=== PATIENT | female | born 1940 | race Caucasian/White ===

== ENCOUNTER → 2016-08-12 | Outpatient (CLI) | payer MEDICARE, BC ==
--- NOTE | 2016-08-12 20:03 | WOUNDPNF ---
DATE 08/12/2016 CHIEF COMPLAINT Followup for osteomyelitis of the right lateral malleolus. HISTORY OF PRESENT ILLNESS Ms. 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 It was thought to be down to the bone in the spring. She has a history of polio and Charcot foot osteoneuropathy. She was initially treated with Bactrim which caused a rash. She had a wound culture November 26 that grew gram-positive cocci on the Gram stain and the culture grew heavy growth of a methicillin-resistant Staph aureus, moderate growth of Strep mitis and Prevotella bivia. The MRSA was susceptible to vancomycin, Bactrim, tigecycline, tetracycline, linezolid, gentamicin and doxycycline and resistant to clindamycin. I initially discussed IV antibiotics with her. However, she wanted to try oral antibiotics. She was given doxycycline 100 mg b.i.d. for one month from December 31. She underwent vascular intervention by Dr. Hua to improve blood flow in the right lower extremity in March. Following that the wound gradually increased in size. She had an MRI June 01 which showed a soft tissue defect along the lateral aspect of the ankle joint adjacent to the lateral malleolus which had mildly increased marrow signal suspicious for osteomyelitis. She agreed to do IV antibiotics and was started on daptomycin 600 mg IV daily on June 25. She has also been undergoing hyperbaric oxygen treatments. She continues to follow with Dr. Fontaine who has been doing some superficial debridement to her wound. Last week on August 05 she finished six weeks of IV antibiotics so her PICC line and daptomycin were discontinued. She was given minocycline 100 mg b.i.d. Today she reports that she is doing well although she asks about whether or not she can take her calcium with the minocycline. PAST MEDICAL HISTORY, PAST SURGICAL HISTORY Reviewed. ALLERGIES Bactrim caused a rash. Penicillin causes hives. Doxycycline causes mild GI upset but she tolerates minocycline. Vancomycin caused leukopenia. Contrast dye is listed as an allergy. SOCIAL HISTORY, FAMILY HISTORY, CURRENT MEDICATIONS Reviewed. REVIEW OF SYSTEMS She denies any recent fevers, chills, sweats, nausea, vomiting or diarrhea. She denies much in the way of pain. PHYSICAL EXAM GENERAL: She appears comfortable and is in no acute distress. She was seen in the HBO chamber and her wound was evaluated at the end of her HBO therapy. HEENT: Pupils appear to be equal, round, reactive to light. Extraocular movements are intact. NECK: Supple. HEART: Regular rate and rhythm. No murmurs noted. LUNGS: Clear to auscultation bilaterally. EXTREMITIES: She is status post left below-knee amputation. She continues to have a wound on the right lateral malleolus which measures slightly larger than 1 cm in diameter. This appears to be clean. She still has a mild amount of erythema surrounding this but it is very, very mild. NEUROLOGIC: Exam is grossly nonfocal. She is alert and oriented x 3. PSYCHIATRIC: Mood and affect are appropriate. SKIN: No rashes. LABORATORY Her most recent labs are from August 03 when her CRP was 5.7. CK was 96. Sed rate was 44. IMPRESSION 1. Pressure ulcer right ankle stage IV/osteomyelitis status post debridement, wound cultures with predominantly methicillin-resistant Staph aureus as well as Strep mitis and Prevotella bivia. MRI June 01 with increased signal suspicious for osteomyelitis of the right lateral malleolus, status post daptomycin therapy for six weeks completed August 05, 2016. 2. Charcot foot deformity of the right foot. 3. Diabetes mellitus type 2 on insulin. 4. Peripheral arterial disease status post intervention and revascularization procedure to the right lower extremity March 2016. 5. Atrial fibrillation on Coumadin. 6. 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 7. Osteopenia. 8. Hypertension. 9. Hyperlipidemia. 10. History of polio. 11. Allergies to Bactrim and penicillin and history of leukopenia with vancomycin. RECOMMENDATIONS I would recommend continuing with the minocycline 100 mg p.o. b.i.d. indefinitely for now. I discussed with her that she needs to take her minocycline one hour before or two hours after antacids and calcium supplements. I also told her that she can resume her statin which was stopped while she was on daptomycin therapy. I will have her follow up with me in about four weeks. JUDI
== END ==
LOC: NWCC 07:45
PROVIDERS: ATTEND Internal Medicine Infectious Disease
DX: M86.671 Other chronic osteomyelitis, right ankle and foot (principal); E11.51 Type 2 diabetes mellitus with diabetic peripheral angiopathy without gangrene; E11.65 Type 2 diabetes mellitus with hyperglycemia
CPT/HCPCS: 82948; G0277; 99183

== ENCOUNTER → 2016-08-13 | Outpatient (CLI) | payer MEDICARE, BC | LOC: NWCC 07:46 | PROVIDERS: ATTEND Internal Medicine | DX: M86.671 Other chronic osteomyelitis, right ankle and foot (principal); E11.51 Type 2 diabetes mellitus with diabetic peripheral angiopathy without gangrene; E11.65 Type 2 diabetes mellitus with hyperglycemia | CPT/HCPCS: 82948; G0277; 99183 ==

== ENCOUNTER → 2016-08-14 | Outpatient (CLI) | payer MEDICARE, BC | LOC: NWCC 07:46 | PROVIDERS: ATTEND Orthopaedic Surgery | DX: M86.671 Other chronic osteomyelitis, right ankle and foot (principal); E11.51 Type 2 diabetes mellitus with diabetic peripheral angiopathy without gangrene; E11.65 Type 2 diabetes mellitus with hyperglycemia | CPT/HCPCS: 82948; G0277; 99183 ==

== ENCOUNTER → 2016-08-17 | Outpatient (CLI) | payer MEDICARE, BC | LOC: NWCC 07:48 | PROVIDERS: ATTEND Internal Medicine | DX: M86.671 Other chronic osteomyelitis, right ankle and foot (principal); E11.51 Type 2 diabetes mellitus with diabetic peripheral angiopathy without gangrene; E11.65 Type 2 diabetes mellitus with hyperglycemia | CPT/HCPCS: 82948; G0277; 99183 ==

== ENCOUNTER → 2016-08-18 | Outpatient (CLI) | payer MEDICARE, BC | LOC: NWCC 07:57 | PROVIDERS: ATTEND Internal Medicine | DX: L89.514 Pressure ulcer of right ankle, stage 4 (principal); E11.69 Type 2 diabetes mellitus with other specified complication; E16.2 Hypoglycemia, unspecified; M86.671 Other chronic osteomyelitis, right ankle and foot | CPT/HCPCS: 11042; 82948 ==

== ENCOUNTER → 2016-08-19 | Outpatient (CLI) | payer MEDICARE, BC | LOC: NWCC 07:46 | PROVIDERS: ATTEND Internal Medicine | DX: M86.671 Other chronic osteomyelitis, right ankle and foot (principal); E11.51 Type 2 diabetes mellitus with diabetic peripheral angiopathy without gangrene; E11.65 Type 2 diabetes mellitus with hyperglycemia | CPT/HCPCS: 82948; G0277; 99183 ==

== ENCOUNTER → 2016-08-20 | Outpatient (CLI) | payer MEDICARE, BC | LOC: NWCC 07:44 | PROVIDERS: ATTEND Internal Medicine | DX: M86.671 Other chronic osteomyelitis, right ankle and foot (principal); E11.51 Type 2 diabetes mellitus with diabetic peripheral angiopathy without gangrene; E11.65 Type 2 diabetes mellitus with hyperglycemia | CPT/HCPCS: 82948; G0277; 99183 ==

== ENCOUNTER → 2016-08-21 | Outpatient (CLI) | payer MEDICARE, BC | LOC: NWCC 07:47 | PROVIDERS: ATTEND Internal Medicine | DX: M86.671 Other chronic osteomyelitis, right ankle and foot (principal); E11.51 Type 2 diabetes mellitus with diabetic peripheral angiopathy without gangrene; E11.65 Type 2 diabetes mellitus with hyperglycemia | CPT/HCPCS: 82948; G0277; 99183 ==

== ENCOUNTER → 2016-08-24 | Outpatient (CLI) | payer MEDICARE, BC | LOC: NWCC 07:50 | PROVIDERS: ATTEND Internal Medicine | DX: M86.671 Other chronic osteomyelitis, right ankle and foot (principal); E11.51 Type 2 diabetes mellitus with diabetic peripheral angiopathy without gangrene; E11.65 Type 2 diabetes mellitus with hyperglycemia | CPT/HCPCS: 82948; G0277; 99183 ==

== ENCOUNTER → 2016-08-25 | Outpatient (CLI) | payer MEDICARE, BC | LOC: NWCC 07:46 | PROVIDERS: ATTEND Surgery | DX: M86.671 Other chronic osteomyelitis, right ankle and foot (principal); E11.51 Type 2 diabetes mellitus with diabetic peripheral angiopathy without gangrene; E11.65 Type 2 diabetes mellitus with hyperglycemia; L89.514 Pressure ulcer of right ankle, stage 4; Z86.14 Personal history of Methicillin resistant Staphylococcus aureus infection | CPT/HCPCS: 82948; G0277; G0463; 99183 ==

== ENCOUNTER → 2016-08-26 | Outpatient (CLI) | payer MEDICARE, BC | LOC: NWCC 07:52 | PROVIDERS: ATTEND Internal Medicine | DX: M86.671 Other chronic osteomyelitis, right ankle and foot (principal); E11.51 Type 2 diabetes mellitus with diabetic peripheral angiopathy without gangrene; E11.65 Type 2 diabetes mellitus with hyperglycemia | CPT/HCPCS: 82948; G0277; 99183 ==

== ENCOUNTER → 2016-08-27 | Outpatient (CLI) | payer MEDICARE, BC | LOC: NWCC 08:00 | PROVIDERS: ATTEND Internal Medicine | DX: M86.671 Other chronic osteomyelitis, right ankle and foot (principal); E11.51 Type 2 diabetes mellitus with diabetic peripheral angiopathy without gangrene; E11.65 Type 2 diabetes mellitus with hyperglycemia | CPT/HCPCS: 99183 ==

== ENCOUNTER → 2016-08-31 | Outpatient (CLI) | payer MEDICARE, BC | LOC: NWCC 07:47 | PROVIDERS: ATTEND Internal Medicine | DX: M86.671 Other chronic osteomyelitis, right ankle and foot (principal); E11.51 Type 2 diabetes mellitus with diabetic peripheral angiopathy without gangrene; E11.65 Type 2 diabetes mellitus with hyperglycemia | CPT/HCPCS: 99183 ==

== ENCOUNTER → 2016-09-01 | Outpatient (CLI) | payer MEDICARE, BC | LOC: NWCC 07:50 | PROVIDERS: ATTEND Surgery Plastic and Reconstructive Surgery | DX: M86.671 Other chronic osteomyelitis, right ankle and foot (principal); E11.51 Type 2 diabetes mellitus with diabetic peripheral angiopathy without gangrene; E11.65 Type 2 diabetes mellitus with hyperglycemia | CPT/HCPCS: 99183 ==

== ENCOUNTER → 2016-09-03 | Outpatient (CLI) | payer MEDICARE, BC | LOC: NWCC 07:46 | PROVIDERS: ATTEND Internal Medicine | DX: M86.671 Other chronic osteomyelitis, right ankle and foot (principal); E11.51 Type 2 diabetes mellitus with diabetic peripheral angiopathy without gangrene; E11.65 Type 2 diabetes mellitus with hyperglycemia | CPT/HCPCS: 99183 ==

== ENCOUNTER → 2016-09-04 | Outpatient (CLI) | payer MEDICARE, BC ==
[~2016-09-04] MED LIST: SALINE FLUSH 10ml SYRINGE IVF ONE
== END ==
LOC: NWCC 07:46
PROVIDERS: ATTEND Internal Medicine
DX: M86.671 Other chronic osteomyelitis, right ankle and foot (principal); E11.51 Type 2 diabetes mellitus with diabetic peripheral angiopathy without gangrene; E11.65 Type 2 diabetes mellitus with hyperglycemia; L89.514 Pressure ulcer of right ankle, stage 4; Z86.14 Personal history of Methicillin resistant Staphylococcus aureus infection
CPT/HCPCS: 11042; 82948; G0277; 99183

== ENCOUNTER → 2016-09-07 | Outpatient (CLI) | payer MEDICARE, BC | LOC: NWCC 07:47 | PROVIDERS: ATTEND Internal Medicine | DX: M86.671 Other chronic osteomyelitis, right ankle and foot (principal); E11.51 Type 2 diabetes mellitus with diabetic peripheral angiopathy without gangrene; E11.65 Type 2 diabetes mellitus with hyperglycemia | CPT/HCPCS: 82948; G0277; 99183 ==

== ENCOUNTER → 2016-09-08 | Outpatient (CLI) | payer MEDICARE, BC | LOC: NWCC 07:50 | PROVIDERS: ATTEND Surgery | DX: M86.671 Other chronic osteomyelitis, right ankle and foot (principal); E11.51 Type 2 diabetes mellitus with diabetic peripheral angiopathy without gangrene; E11.65 Type 2 diabetes mellitus with hyperglycemia; L89.514 Pressure ulcer of right ankle, stage 4; Z86.14 Personal history of Methicillin resistant Staphylococcus aureus infection | CPT/HCPCS: 11042; 82948; G0277; 99183 ==

== ENCOUNTER → 2016-09-09 | Outpatient (CLI) | payer MEDICARE, BC ==
--- NOTE | 2016-09-09 17:21 | WOUNDPNF ---
DATE September 09, 2016 CHIEF COMPLAINT Followup for osteomyelitis of the right lateral malleolus. HISTORY OF PRESENT ILLNESS Ms. 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 It was thought to be down to bone in the spring. She was initially treated with Bactrim which caused a rash. She had a wound culture November 26 that grew gram-positive cocci on the Gram stain and the culture grew heavy growth of methicillin-resistant Staph aureus, moderate growth of Strep mitis and Prevotella bivia. The MRSA was susceptible to vancomycin, Bactrim, tigecycline, tetracycline, linezolid, gentamicin, doxycycline and resistant to clindamycin. I initially discussed IV antibiotics with her. However, she wanted to try oral antibiotics. She was treated with doxycycline 100 mg b.i.d. for one month starting December 31. She underwent vascular intervention by Dr. Hua to improve blood flow in the right lower extremity in March. Following that the wound gradually increased in size. She had an MRI June 01 which showed a soft tissue defect along the lateral aspect of the ankle joint adjacent to the lateral malleolus which had mildly increased marrow signal suspicious for osteomyelitis. She agreed to do IV antibiotics and was started on daptomycin 600 mg IV daily on June 25. She completed a six-week course of that on August 05 and was started back on minocycline 100 mg b.i.d. She has also been undergoing hyperbaric oxygen treatments and she is nearing the end of that. She still has a wound and had some superficial debridement done yesterday by Dr. Fontaine. Today she denies any problems in particular. PAST MEDICAL HISTORY/PAST SURGICAL HISTORY Reviewed. ALLERGIES Bactrim caused a rash. Penicillin causes hives. Doxycycline causes mild GI upset but she tolerates minocycline. Vancomycin caused leukopenia. Contrast dye is listed as an allergy. SOCIAL HISTORY/MEDICATIONS/FAMILY HISTORY Reviewed. REVIEW OF SYSTEMS She denies any fevers, chills, sweats, nausea, vomiting or diarrhea. She denies any significant pain. PHYSICAL EXAM Physical exam was limited as she was seen when she was in the hyperbaric oxygen chamber. GENERAL: She appears to be comfortable and in no acute distress. HEENT: Normocephalic, atraumatic. Pupils appear to be equal, round and reactive. Extraocular movements are intact. NEUROLOGIC: Exam appears to be grossly nonfocal. She is alert and oriented x 3. SKIN: No rashes. PSYCHIATRIC: Mood and affect are appropriate. IMPRESSION 1. Pressure ulcer right ankle, stage IV/osteomyelitis status post debridement, wound cultures with predominantly methicillin-resistant Staph aureus as well as Strep mitis and Prevotella bivia. MRI June 01 with increased signal suspicious for osteomyelitis of the right lateral malleolus, status post daptomycin therapy for six weeks completed August 05, 2016. 2. Charcot foot deformity of the right foot. 3. Diabetes mellitus type 2 on insulin. 4. Peripheral arterial disease status post intervention and revascularization procedure to the right lower extremity March 2016. 5. Atrial fibrillation on Coumadin. 6. 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 7. Osteopenia. 8. Hypertension. 9. Hyperlipidemia. 10. History of polio. 11. Allergies to Bactrim and penicillin and history of leukopenia with vancomycin. RECOMMENDATIONS I will continue her on minocycline 100 mg p.o. b.i.d. for another month. I will plan to see her back in followup in a few weeks. Thank you for allowing me to participate in the care of this patient. JUDI
== END ==
LOC: NWCC 07:52
PROVIDERS: ATTEND Internal Medicine Infectious Disease
DX: M86.671 Other chronic osteomyelitis, right ankle and foot (principal); E11.51 Type 2 diabetes mellitus with diabetic peripheral angiopathy without gangrene; E11.65 Type 2 diabetes mellitus with hyperglycemia; L89.514 Pressure ulcer of right ankle, stage 4; E11.8 Type 2 diabetes mellitus with unspecified complications; Z79.4 Long term (current) use of insulin; I48.91 Unspecified atrial fibrillation; Z79.01 Long term (current) use of anticoagulants; Z86.14 Personal history of Methicillin resistant Staphylococcus aureus infection; M85.80 Other specified disorders of bone density and structure, unspecified site; I10 Essential (primary) hypertension; E78.5 Hyperlipidemia, unspecified; Z87.898 Personal history of other specified conditions; I73.9 Peripheral vascular disease, unspecified
CPT/HCPCS: 82948; G0277; G0463; 99183

== ENCOUNTER → 2016-09-10 | Outpatient (CLI) | payer MEDICARE, BC | LOC: NWCC 07:51 | PROVIDERS: ATTEND Internal Medicine | DX: M86.671 Other chronic osteomyelitis, right ankle and foot (principal); E11.51 Type 2 diabetes mellitus with diabetic peripheral angiopathy without gangrene; E11.65 Type 2 diabetes mellitus with hyperglycemia | CPT/HCPCS: 82948; G0277; 99183 ==

== ENCOUNTER → 2016-09-15 | Outpatient (CLI) | payer MEDICARE, BC | LOC: NWCC 10:07 | PROVIDERS: ATTEND Surgery | DX: L89.514 Pressure ulcer of right ankle, stage 4 (principal); Y79.1 Therapeutic (nonsurgical) and rehabilitative orthopedic devices associated with adverse incidents; M86.671 Other chronic osteomyelitis, right ankle and foot; Z86.14 Personal history of Methicillin resistant Staphylococcus aureus infection; E11.8 Type 2 diabetes mellitus with unspecified complications ==

== ENCOUNTER → 2016-09-18 | Outpatient (CLI) | payer MEDICARE, BC ==
[~2016-09-18] MED LIST changes: +GADOBUTROL 10mMol/10ml INJECTION IV ONE; -SALINE FLUSH 10ml SYRINGE IVF ONE; +SALINE FLUSH 10ml SYRINGE ONE
[2016-09-18 08:28] LABS: BASOPHILS # (AUTO) 0.1 T/MM3 (0-0.2); BASOPHILS % (AUTO) 0.6 % (0-2); EOSINOPHILS # (AUTO) 0.3 T/MM3 (0-0.5); HCT - HEMATOCRIT 39.3 % (36-46); IMMATURE GRANULOCYTE # (AUTO) 0.01 T/MM3 (0.00-0.03); IMMATURE GRANULOCYTE % (AUTO) 0.1 % (0.0-0.5); LYMPHOCYTES # (AUTO) 2.5 T/MM3 (1-4.8); LYMPHOCYTES % (AUTO) 32.7 % (23-45); MEAN CORPUSCULAR HGB 30.5 UUG (26-34); MEAN CORPUSCULAR HGB CONC(MCHC 33.1 GM/DL (31-37); MEAN CORPUSCULAR VOLUME 92.3 UM3 (80-100); MEAN PLATELET VOLUME 9.7 UM3 (9.4-12.4); MONOCYTES # (AUTO) 0.7 T/MM3 (0-0.8); MONOCYTES % (AUTO) 8.8 % (0-9.0); NEUTROPHILS #(AUTO)-ABSOLUTE 4.1 T/MM3 (1.8-7.7); NEUTROPHILS % (AUTO) 53.8 % (33-66); RED BLOOD COUNT 4.26 M/MM3 (4.00-5.20); WBC - WHITE BLOOD COUNT 7.7 T/MM3 (4.5-11.0)
[2016-09-18 08:39] LABS: ALBUMIN 3.5 G/DL (3.5-5.0); ALBUMIN/GLOBULIN RATIO 1.1 RATIO (1.1-2.2); ALKALINE PHOSPHATASE 48 U/L (38-126); ALT (SGPT) 39 U/L (9-52); ANION GAP 13 MEQ/L (5-15); AST (SGOT) 31 U/L (14-36); BUN/CREATININE RATIO 22 RATIO (6-26); C-REACTIVE PROTEIN < 5.0 MG/L (0-9); CALCIUM 10.1 MG/DL (8.4-10.2); CHLORIDE 102 MEQ/L (98-107); CO2 - CARBON DIOXIDE 24 MEQ/L (22-30); GLOMERULAR FILTRATION RATE 54; GLUCOSE 151 MG/DL (65-110); POTASSIUM 4.8 MEQ/L (3.6-5); SODIUM 139 MEQ/L (134-144); TOTAL PROTEIN 6.6 G/DL (6.3-8.2)
--- NOTE | 2016-09-18 10:57 | DI ---
Indication: ITS.REASON: OSTEOMYELITIS M86.671 PROCEDURE: MRI ANKLE RIGHT W/WO CONTRAST: Encounter: Subsequent Comparison: Right ankle MRI dated June 01, 2016 Technique: Multiplanar multisequence MR imaging of the right ankle was performed with and without contrast. Contrast: 9.5 mL Gadavist Findings: Again there is significant induration and soft tissue swelling around the medial, lateral and posterior aspects of the ankle joint. The flexor and extensor tendons are unchanged in appearance. Achilles tendon appears chronically partially torn. Chronic partial tearing of the peroneus longus and brevis tendons. Anterior talofibular ligament is chronically torn. No acute fracture. Significant degenerative change in the midfoot. At the area of ulcerated wound indicated with a marker the prior area of edema within the posterior aspect of the distal fibula has also completely resolved. No new areas of bone marrow signal abnormality appreciated. No focal abnormal bone marrow enhancement identified although the lack of fat saturation somewhat limits the exam. No fluid collection or abscess seen. Impression: The prior osteomyelitis of the distal fibula appears to have resolved. .
== END ==
LOC: IMA 08:09
PROVIDERS: ATTEND Surgery
DX: M79.9 Soft tissue disorder, unspecified (principal); M86.671 Other chronic osteomyelitis, right ankle and foot
CPT/HCPCS: 36415; 73723; 80053; 85025; 85652; 86140; A9585

== ENCOUNTER → 2016-09-22 | Outpatient (CLI) | payer MEDICARE, BC ==
[~2016-09-22] MED LIST changes: -GADOBUTROL 10mMol/10ml INJECTION IV ONE; +SALINE FLUSH 10ml SYRINGE IVF ONE; -SALINE FLUSH 10ml SYRINGE ONE
== END ==
LOC: NWCC 08:23
PROVIDERS: ATTEND Surgery
DX: L89.514 Pressure ulcer of right ankle, stage 4 (principal); Y79.1 Therapeutic (nonsurgical) and rehabilitative orthopedic devices associated with adverse incidents; B96.89 Other specified bacterial agents as the cause of diseases classified elsewhere; Z86.14 Personal history of Methicillin resistant Staphylococcus aureus infection; G62.9 Polyneuropathy, unspecified
CPT/HCPCS: 15002; 15271; 20240; 29445; 87070; 87075; 87147; 87205; 88307; A6207; Q4172

== ENCOUNTER → 2016-09-25 | Outpatient (CLI) | payer MEDICARE, BC | LOC: NWCC 08:19 | PROVIDERS: ATTEND Surgery | DX: L89.514 Pressure ulcer of right ankle, stage 4 (principal); Y79.1 Therapeutic (nonsurgical) and rehabilitative orthopedic devices associated with adverse incidents; E11.69 Type 2 diabetes mellitus with other specified complication; M86.671 Other chronic osteomyelitis, right ankle and foot; Z86.14 Personal history of Methicillin resistant Staphylococcus aureus infection | CPT/HCPCS: 29445 ==

== ENCOUNTER → 2016-09-29 | Outpatient (CLI) | payer MEDICARE, BC | LOC: NWCC 08:18 | PROVIDERS: ATTEND Surgery | DX: L89.514 Pressure ulcer of right ankle, stage 4 (principal); Y79.1 Therapeutic (nonsurgical) and rehabilitative orthopedic devices associated with adverse incidents; M86.671 Other chronic osteomyelitis, right ankle and foot; Z86.14 Personal history of Methicillin resistant Staphylococcus aureus infection | CPT/HCPCS: 15002; 15271; 29445; A6207; A6237; Q4172 ==

== ENCOUNTER → 2016-10-06 | Outpatient (CLI) | payer MEDICARE, BC | LOC: NWCC 08:16 | PROVIDERS: ATTEND Surgery | DX: L89.514 Pressure ulcer of right ankle, stage 4 (principal); Y79.1 Therapeutic (nonsurgical) and rehabilitative orthopedic devices associated with adverse incidents; E11.69 Type 2 diabetes mellitus with other specified complication; Z86.14 Personal history of Methicillin resistant Staphylococcus aureus infection | CPT/HCPCS: 29445; A6021; A6209; A6237 ==

== ENCOUNTER → 2016-10-07 | Outpatient (CLI) | payer MEDICARE, BC ==
--- NOTE | 2016-10-07 16:35 | WOUNDPNF ---
DATE October 07, 2016 CHIEF COMPLAINT Followup for osteomyelitis of the right lateral malleolus. HISTORY OF PRESENT ILLNESS Ms. 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 It was thought to be down to bone in the spring. She was initially treated with Bactrim which caused a rash. She had a wound culture November 26 that grew heavy growth of methicillin-resistant staph aureus, moderate growth of strep mitis and Prevotella bivia. I discussed IV antibiotics with her, however, initially she wanted to try oral antibiotics. She was treated with doxycycline 100 mg b.i.d. for one month starting December 31. She underwent vascular intervention by Dr. Hua to improve blood flow in the right lower extremity in March. Following that, the wound gradually increased in size. She had an MRI June 01 which showed a soft tissue defect along the lateral aspect of the ankle joint adjacent to the lateral malleolus which had mildly increased marrow signal suspicious for osteomyelitis. She agreed to do IV antibiotics and was started on daptomycin 600 mg IV daily on June 25. She completed a six-week course on August 05 and was started back on minocycline 100 mg b.i.d. She also underwent hyperbaric oxygen treatments and recently completed those. She still has a wound present and recently Dr. Fontaine has been doing some superficial debridements of her wound. I last saw her September 09 and continued her on the minocycline. Recently Dr. Fontaine has decided to put her in a cast thinking that there has been some motion contributing to the fact that this wound is not healing. She had a repeat MRI done September 18 which showed that the osteomyelitis in the fibula had resolved. On September 22 she had a wound culture obtained by Dr. Fontaine which had a negative gram stain and grew a little bit of coagulase-negative staph only. The susceptibility was not done. Dr. Fontaine did a biopsy or as the patient describes it he removed a piece of tissue from her wound and sent this off to pathology. The report said that there were fragments of bone, cartilage, and soft tissue obtained. The bone showed features suggestive of resolving osteomyelitis. Her wound has significantly decreased in size recently. PAST MEDICAL HISTORY AND PAST SURGICAL HISTORY Were reviewed. ALLERGIES BACTRIM caused a rash. PENICILLIN causes hives. DOXYCYCLINE causes mild GI upset but she tolerates minocycline. VANCOMYCIN caused leukopenia. CONTRAST DYE is listed as an ALLERGY. SOCIAL HISTORY, MEDICATIONS AND FAMILY HISTORY Were reviewed. REVIEW OF SYSTEMS She denies any recent fevers, chills, sweats, nausea, vomiting or diarrhea. She denies any significant pain. Actually she does report some intermittent diarrhea but it is not persistent. PHYSICAL EXAMINATION VITALS: Temperature 97. Blood pressure 127/72. Pulse 76. Respirations 20. GENERAL: She appears comfortable and is in no acute distress. HEENT: Pupils equal, round, reactive to light. Extraocular movements intact. Oropharynx is clear. Dentition is fair. HEART: Regular rate and rhythm. No murmurs noted. LUNGS: Clear to auscultation bilaterally anteriorly. ABDOMEN: Soft and nontender. She has bowel sounds present. No guarding or rebound. EXTREMITIES: Her right lower extremity is in a cast. She is status post left below-knee amputation. SKIN: No rashes. NEURO: Exam is grossly nonfocal. She is alert, oriented x3. PSYCH: Her mood and affect are appropriate. IMPRESSION 1. Pressure ulcer right ankle, stage IV/osteomyelitis status post debridement, wound cultures with predominantly methicillin-resistant staph aureus as well as strep mitis and Prevotella bivia. Status post six weeks of daptomycin therapy completed August 05, 2016, MRI September 18, 2016 showed resolution of osteomyelitis in the distal fibula. 2. Charcot foot deformity of the right foot. 3. Diabetes mellitus type 2 on insulin. 4. Peripheral arterial disease status post intervention and revascularization procedure to the right lower extremity March 2016. 5. Atrial fibrillation on Coumadin. 6. 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 7. Hypertension. 8. Hyperlipidemia. 9. Osteopenia. 10. History of polio. 11. Allergies to Bactrim and penicillin and history of leukopenia with vancomycin. RECOMMENDATIONS She tells me that Dr. Fontaine thought that he could palpate down to bone just a couple of weeks ago but last week he felt that there was no bone at the base of her wound. Her wound now measures 0.9 x 0.8 x 0.4. I would have her continue with the minocycline that she has left and then finish it. She states that she has 16 days left. Hopefully this wound will continue to heal. I would be happy to see her back in followup as needed. JUDI
== END ==
LOC: NWCC 08:45
PROVIDERS: ATTEND Internal Medicine Infectious Disease
DX: L89.514 Pressure ulcer of right ankle, stage 4 (principal); Y79.1 Therapeutic (nonsurgical) and rehabilitative orthopedic devices associated with adverse incidents; E11.69 Type 2 diabetes mellitus with other specified complication; Z79.4 Long term (current) use of insulin; I73.9 Peripheral vascular disease, unspecified; I48.91 Unspecified atrial fibrillation; Z79.01 Long term (current) use of anticoagulants; Z86.14 Personal history of Methicillin resistant Staphylococcus aureus infection; I10 Essential (primary) hypertension; E78.5 Hyperlipidemia, unspecified; M85.80 Other specified disorders of bone density and structure, unspecified site; Z87.898 Personal history of other specified conditions; A52.16 Charcot's arthropathy (tabetic); M86.171 Other acute osteomyelitis, right ankle and foot

== ENCOUNTER 2017-02-18 08:36 | Inpatient (IN) ==
--- OUTSIDE RECORDS SUMMARY | 2017-02-18 08:41 | External Medical Summary | Clinical Summary ---
:1940 Author Organization [facility] Address [address] [place] [address] Phone Care Team Providers Name Role Phone Unavailable Primary Care Provider Unavailable Source Comments Some departments are not documenting in the electronic medical record. If you do not see the information that you expected, contact Release of Information in the Health Information Management department at [phone] for further assistance in locating additional records.[facility] Allergies Active Allergy Reactions Severity Noted Date Comments Penicillins High 06/29/2003 Allergy recorded in SMS: PCN~Reactions: ANAPHYLAXIS Social History Tobacco Use Types Packs/Day Years Used Date Never Assessed Sex Assigned at Date Recorded Not on file Plan of Treatment Health Maintenance Due Date Last Done Comments PHYSICAL (COMPREHENSIVE) EXAM 1947 PERTUSSIS VACCINE 1949 TETANUS VACCINE 09/24/1955 SHINGLES VACCINE 1998 OSTEOPOROSIS SCREENING 09/24/2003 PREVNAR/PNEUMOVAX (#1) 09/24/2003 INFLUENZA VACCINE 02/12/2017
--- OUTSIDE RECORDS SUMMARY | 2017-02-18 08:42 | External Medical Summary ---
:1940 Author Organization [employer] Care Team Providers Name Role Phone Beni Hua Provider Role Unavailable Allergies No Known Allergies Problems No Known Problems Medications No Known Medications Results No Known Results Summary Purpose [employer] Submission
[2017-02-18 09:41] VITALS: BMI 31.4
[2017-02-18] MEDS: LR 1,000 ML IV SCH ×2 (10:10→14:34)
--- NOTE | 2017-02-18 11:05 | Anesthesia Preoperative Report ---
Anesthesia Preoperative Record - Date and Time Date: 02/18/17 Preoperative Diagnosis: rt BKA S91.301D L89.514 Proposed Procedure: Right BKA NPO Since Date: 02/18/17 NPO Since Time: 00:00 Allergies/Adverse Reactions: Allergies Allergy/AdvReac Type Severity Reaction Status Date / Time Penicillins Allergy Mild BLISTERS Verified 02/18/17 09:14 Iodinated Contrast- Oral and Allergy Unknown Sneezing Verified 02/18/17 09:14 IV Dye Sulfa (Sulfonamide Allergy Unknown HIVES Verified 02/18/17 09:14 Antibiotics) doxycycline AdvReac Nausea and Verified 02/18/17 09:14 Vomiting - Vital Signs Vital Signs: Temperature 98.1 F 02/18/17 09:41 Pulse Rate 81 02/18/17 09:41 Respiratory Rate 19 02/18/17 09:41 Blood Pressure 123/59 02/18/17 09:41 Pulse Oximetry 99 02/18/17 09:41 Height and Weight: Height 5 ft 7 in Weight 90.9 kg Body Mass Index 31.4 - Medications Inpatient Medications: Current Medications Lactated Ringer's (Lactated Ringers) 1,000 mls @ 30 mls/hr IV .Q24H BELLA Last Admin: 02/18/17 10:10 Dose: 30 mls/hr Lidocaine HCl (Xylocaine-Mpf 1% Vial) 1 mg ID O ONE Stop: 02/18/17 16:04 Home Medications: Home Medications Medication Instructions Recorded Confirmed Type Acetaminophen [Non-Aspirin Pain 500 mg PO Q4-6HPRN PRN 11/19/16 11/20/16 History Relief] Calcium 500 + D [Os [place]-D 500] 1 tab PO BID 11/19/16 11/20/16 History Glimepiride [Amaryl] 4 mg PO DAILY 11/19/16 11/20/16 History Insulin Glargine [Lantus] 10 units SQ HS 11/19/16 11/20/16 History Irbesartan [Avapro] 1 tab PO DAILY 11/19/16 11/20/16 History Levothyroxine Tab [Synthroid] 88 mcg PO ACB 11/19/16 11/20/16 History Metformin [Glucophage] 500 mg PO TID 11/19/16 11/20/16 History Metoprolol Tartrate [Lopressor] 12.5 mg PO WB 11/19/16 11/20/16 History NIFEdipine [Nifedipine ER] 1 tab PO DAILY 11/19/16 11/20/16 History Spironolactone [Aldactone] 100 mg PO DAILY 11/19/16 11/20/16 History Warfarin Sodium [Coumadin] 3 mg PO DAILY 11/19/16 11/20/16 History Atorvastatin [Lipitor] 80 mg PO DAILY 11/20/16 11/20/16 History Multivitamin [Multivitamins] 1 each PO DAILY 02/17/17 History Is Patient on Beta Sven?: Yes Beta Sven Last Dose Date/Time: 02-17-17 PM - Medical History Respiratory: DENIES: Asthma, Bronchitis, Chronic Obstructive Pulmonary Disease (COPD), Dyspnea, Orthopnea, Pulmonary Embolism, Pneumonia, Upper Respiratory Infection, Pulmonary Edema, Sleep Apnea, Tuberculosis, Other Cardiovascular: Reports: Arrhythmia (Afib), Hypertension, High Cholesterol Gastrointestional: Reports: Morbid Obesity Neuro/Musculoskeletal: Reports: Other (Right leg wound) Renal/Endocrine: Reports: Diabetes Mellitus Type 1, Thyroid Disease Other History: DENIES: Anesthesia Reactions, Now, Blood Transfusions, Chemotherapy , Cancer, Hemophilia, Malignant Hyperthermia, Sickle Cell Disease, Other - Surgical History HEENT Surgeries: Reports: Eye Surgery (cataract), Tonsillectomy Cardiac Surgeries/Treatments: Reports: Angiogram ("clean out" right leg vein), Other (PICC LINE) GI Surgery/Treatments: Reports: Appendectomy, Cholecystectomy Musculoskeletal Surgery/Tx: Reports: Carpal Tunnel Release (bilat. including ulnar tunnel), Knee Arthroscopy (LEFT BKA), Other (left BKA) Reproductive Surgery/Treatment: Reports: Hysterectomy - Social History Smoking Status: Former smoker (quit 31 yrs ago) Substance Use Type: does not use Alcohol Intake Frequency: does not drink - Pertinent Findings Laboratory: CBC and BMP 02/18/17 09:13 02/18/17 09:13 BMP 02/18/17 09:13 Sodium 142 Potassium 4.9 Chloride 105 Carbon Dioxide 24 BUN 21.0 H Creatinine 1.0 Glucose 172 H Calcium 10.9 H EKG Rhythm: Atrial Fibrillation with Normal Ventricular Rate - Physical Exam Respiratory Exam: Present: lungs clear, bilateral breath sounds equal Cardiovascular Exam: Present: regular rate and rhythm, no murmur - Airway Assessment Mallampati Score: II TMD: 3 Fingerbreadths Neck Extension: fair Teeth: upper dentures, lower dentures Overall Assessment: may be difficult intubation - ASA ASA Score: 3 - Plan Anesthesia: General Inhalation Gases - Discussion Discussion: Discussed risks/options/alternatives of anesthesia and questions answered. Patient consents. Nursing pain assessment noted. Present for Discussion: spouse, children Attestation Statement: Prior to the delivery of any anesthetic medication, I examined the patient, developed the plan, obtained the patient's consent and discussed the risk and benefits of the procedure with the patient/guardian. - Additional Information Seen by Anesthesia: Yes
[2017-02-18] MEDS ORDERED: FentaNYL 100 MCG/2 ML INJECTION ONE (11:29)
[2017-02-18] MEDS ORDERED: BUPIVACAINE 0.25%/EPI 1:200,000 30ml SDV ONE (11:32)
[2017-02-18] MEDS ORDERED: DiphenhydrAMINE 50 MG/ML INJECTION ONE (12:11)
[2017-02-18] MEDS ORDERED: BUPIVACAINE 0.25%/EPI 1:200,000 30ml SDV INFIL ONE (12:11)
[2017-02-18] MEDS ORDERED: ONDANSETRON 4 MG/2 ML INJECTION ONE (12:11)
[2017-02-18] MEDS ORDERED: EPHEDRINE 50mg/ml INJECTION ONE (12:14)
[2017-02-18] MEDS ORDERED: LIDOCAINE 2% (100mg/5mL) PF 5ml vl ONE (12:14)
[2017-02-18] MEDS ORDERED: PROPOFOL 20 ML ONE (12:14)
[2017-02-18] MEDS ORDERED: HYDROMORPHONE 2 MG/ML INJECTION ONE (12:46)
[2017-02-18] MEDS ORDERED: FentaNYL 100 MCG/2 ML INJECTION IVP PRN (12:55)
[2017-02-18] MEDS ORDERED: HYDROMORPHONE 2 MG/ML INJECTION IVP PRN ×2 (12:55→14:28)
[2017-02-18] MEDS ORDERED: ONDANSETRON 4 MG/2 ML INJECTION IVP PRN ×3 (12:55→15:18)
[2017-02-18] MEDS ORDERED: DiphenhydrAMINE 50 MG/ML INJECTION IVP PRN (12:55)
--- NOTE | 2017-02-18 14:05 | Anesthesia Postoperative Note ---
- Date and Time Date: 02/18/17 Time: 14:04 - Status Patient Participated in Evaluation: Patient Participated in Person Vital Signs: Temperature 98.1 F 02/18/17 09:41 Pulse Rate 81 02/18/17 09:41 Respiratory Rate 19 02/18/17 09:41 Blood Pressure 123/59 02/18/17 09:41 Pulse Oximetry 99 02/18/17 09:41 Respiratory Function: Airway Patent Cardiovascular Function: Regular Pulse EKG Rhythm: Normal Sinus Rhythm Mental Status: Alert and Oriented Hydration: IV Infusing Complications During Recover: None Apparent - Follow-Up Instructions Instructions: Per Surgeon
--- NOTE | 2017-02-18 14:14 | General Surgery Procedure Note ---
Date of Procedure: 02/18/17 Surgeon: [employer] Administrator: Oscar Pierce APRN Postoperative Diagnosis: Stage 3 and 4 ulcers right foot and ankle that failed outpatient therapy Procedure: right below the knee amputation Estimated Blood Loss: See Anesthesia Record.
[2017-02-18] MEDS: NS 1,000 ML IV SCH (15:38)
[2017-02-18] MEDS: MORPHINE PCA 30 MG/30 ML SYRINGE IV PRN (15:39)
[2017-02-18] MEDS ORDERED: LIDOCAINE 1% (10mg/ml) 2mL INJ PF SDV ID ONE (16:03)
--- NOTE | 2017-02-18 16:38 | History & Physical Report ---
<April Juarez - Last Filed: 02/18/17 16:21> History of Present Illness Date: 02/18/17 Chief complaint: Rt BKA HPI: Dulce Maria Vasquez is a 76 year old woman who has been undergoing wound care for for a stage IV diabetic pressure ulcer to the right lateral malleolus for about 15 months. She also had right plantar midfoot and right dorsal midfoot wounds. She has been on and off antibiotics and wound vac. She went through hyperbaric therapy. Nutritional recommendations were also made, and she improved in this regard. However, the wound worsened and MRI showed progressive osteomyelitis. Right [id number] amputation was recommended and she underwent this procedure on 02/18/[address] Fontaine. She was seen postoperatively, awake and alert, oriented x3. She reports being in her usual state of health, and denies any recent illnesses such as fever or chills, body aches, nausea or vomiting, weakness or dizziness, neuro symptoms, abdominal pain, nausea or vomiting. During her last round of antibiotics she developed diarrhea, but this improved when she started taking probiotics. She reports chronic urinary frequency but denies dysuria. She denies any chest pain/ pressure, dyspnea, or palpitations. She has a right BKA and uses a prosthetic. Per family, Dr. Fontaine removed the LLE at the same level as the Right BKA. Immediately postop, she also is feeling well with stable vital signs. Review of Systems Comprehensive ROS: completed and no additional positive findings except those as stated - EENMT Eyes: Absent: change in vision Mouth/Throat: Present: as per HPI - Cardiovascular Cardiovascular: Absent: chest pain - Respiratory Respiratory: Present: as per HPI - Gastrointestinal Gastrointestinal: Present: as per HPI - Genitourinary Genitourinary: Present: as per HPI - Musculoskeletal Musculoskeletal: Present: abnormal gait - Integumentary/Breasts Integumentary: Present: as per HPI - Neurological Neurological: Present: as per HPI, abnormal gait. Absent: dizziness, weakness - Psychiatric Psychiatric: Present: other (oldest daughter reports worsening memory loss/ forgetfulness for 2 years). Absent: depression - Endocrine Endocrine: Absent: palpitations - Hematologic/Lymphatic Hematologic/Lymphatic: Present: easy bruising PFSH Atrial fibrillation, anticoagulated on coumadin. Echo 03/18/15 showed EF 65-70%, biatrial enlargement and mild pulm HTN HTN DM type 2, insulin dependent (diagnosed in 1998). A1c was 7.0% in August, PVD Obesity Hypothyroidism Hyperlipidemia Osteopenia Intermittent hypercalcemia Charcot Osteomyelitis right foot - resolveda Surgical History: Right BKA 02/18/[address] Fontaine. Angioplasty right leg 04/[address] Hua. Left cataract removal 08/11/[address] Bahena. Vaginal hysterectomy for polapse in 11/19. Colonoscopy in 2005 was normal. Left BKA 29/10. Partial left foot ampuation in 07/19. B/L carpal and ulnar tunnel releases in 1998. Appendectomy in 1971. Cholecystectomy in 1971 Family History: Father was a smoker and of lung cancer at age 59. Mother of old age (82 years old) 2 siblings were smokers and of lung cancer in their 50s. A sister at age 61 of heart problems. - Social History Smoking status: Former smoker (quit in 1987) Packs-years: 34 Alcohol intake frequency: holidays/special occasions only Household members: spouse Current occupational status: retired Social history: PCP: Dr. Liza Wellington Ophtho: Dr. Jair Bahena CV: Dr. Hua Medications Home Medications Medication Instructions Recorded Confirmed Type Acetaminophen [Non-Aspirin Pain 500 mg PO Q4-6HPRN PRN 11/19/16 11/20/16 History Relief] Calcium 500 + D [Os Rio-D 500] 1 tab PO BID 11/19/16 11/20/16 History Glimepiride [Amaryl] 4 mg PO DAILY 11/19/16 11/20/16 History Insulin Glargine [Lantus] 10 units SQ HS 11/19/16 11/20/16 History Irbesartan [Avapro] 1 tab PO DAILY 11/19/16 11/20/16 History Levothyroxine Tab [Synthroid] 88 mcg PO ACB 11/19/16 11/20/16 History Metformin [Glucophage] 500 mg PO TID 11/19/16 11/20/16 History Metoprolol Tartrate [Lopressor] 12.5 mg PO WB 11/19/16 11/20/16 History NIFEdipine [Nifedipine ER] 1 tab PO DAILY 11/19/16 11/20/16 History Spironolactone [Aldactone] 100 mg PO DAILY 11/19/16 11/20/16 History Warfarin Sodium [Coumadin] 3 mg PO DAILY 11/19/16 11/20/16 History Atorvastatin [Lipitor] 80 mg PO DAILY 11/20/16 11/20/16 History Multivitamin [Multivitamins] 1 each PO DAILY 02/17/17 History Allergies Allergy/AdvReac Type Severity Reaction Status Date / Time Penicillins Allergy Mild BLISTERS Verified 02/18/17 09:14 Iodinated Contrast- Oral and Allergy Unknown Sneezing Verified 02/18/17 09:14 IV Dye Sulfa (Sulfonamide Allergy Unknown HIVES Verified 02/18/17 09:14 Antibiotics) doxycycline AdvReac Nausea and Verified 02/18/17 09:14 Vomiting Exam Vital Signs: Temperature 99.1 F 02/18/17 15:09 Pulse Rate 68 02/18/17 15:05 Respiratory Rate 16 02/18/17 15:39 Blood Pressure 97/50 02/18/17 15:05 Pulse Oximetry 94 02/18/17 15:05 Height/Weight/BMI: Height 1.7 m Weight 90.9 kg Body Mass Index 31.4 - Constitutional Present: no acute distress, well nourished, well developed, obese - Routine HEENT Exam Head: Present: normocephalic Eye: Absent: conjunctival icterus ENT: Present: mucous membranes dry. Absent: dentition normal (edentulous - has dentures) - Routine Respiratory Exam Present: CTA bilaterally - Routine Cardiovascular Exam Present: RRR, S1, S2, murmur (2-3/6 systolic murmur) - Routine Abdominal Exam Present: soft, non distended, non tender. Absent: normoactive bowel sounds ( hypoactive) - Routine Extremities Exam Present: amputation (b/l BKA; right BKA is dressed and there is a AGUSTIN drain with a small amount of serosanguinous fluid) - Routine Skin Exam Present: intact, dry - Routine Neurological Exam Present: alert, oriented X3, CN II-XII intact, normal speech - Routine Psychiatric Exam Present: normal affect, normal thought process, cooperative Results - Labs CBC & Chem 7: 02/18/17 09:13 02/18/17 09:13 Assessment and Plan (1) Amputated below knee Current visit: Yes Status: Acute (2) Normocytic anemia Current visit: Yes Status: Acute (3) Hypercalcemia Current visit: Yes Status: Acute DVT Prophylaxis: Lovenox, Coumadin Resuscitation Status: Do Not Resuscitate Assessment and Plan: ASSESSMENT S/P Right leg BKA 02/18/[address] Fontaine for chronic diabetic foot ulcer and osteomyelitis Hypercalcemia - hx of chronic intermittent per clinic notes. Prior workup included ionized calcium levels. Atrial fibrillation, anticoagulated on coumadin. Echo 03/18/15 showed EF 65-70%, biatrial enlargement and mild pulm HTN HTN DM type 2, insulin dependent (diagnosed in 1998). A1c was 7.0% in August, PVD Obesity Hypothyroidism Hyperlipidemia Osteopenia Intermittent hypercalcemia Charcot Osteomyelitis right foot - resolved Possible dementia - daughter reports worsening memory issues for the last 2 years PLAN Discussed with Oscar Pierce APRN - do not feel that postop antibiotics are needed prophylactically. Infected part of her foot/leg has been removed. No need at this time for ID consultation. Morphine pump for pain. Consult PT/OT. Mild normocytic anemia - monitor Hypercalcemia with Ca of 10.9 Telemetry due to history of a-fib. Continue metoprolol and nifedipine for rate control. Coumadin per pharmacy protocol. Lovenox to bridge until INR is therapeutic. Monitor blood sugars fasting and postprandial - continue oral diabetic meds and insulin. Lind is in place - DC WILLI. Pt is hesitant to DC because it is very difficult for her to use a bedpan since she can't lift herself up. Hopefully we will be able to DC Lind in 1-2 days. Discussed expectations and discharge plans with family: they are interested in SNF. Her mobility and functionality was limited prior to this surgery so they are unsure if she will be able engage in IRU requirements. Will consult CM for discharge planning. With noted memory issues, she is high risk for delirium. Discussed signs with family and nonpharmacological treatments. Outside records reviewed. Discussed in depth with patient and family. Sepsis Assessment - Evaluation Sepsis screening result: No Definite Risk Hospital Course Summary Disclaimer: The visit summary below is not to be considered part of the above Progress Note. Hospital Course: Date of admission: 02/18/17 ASSESSMENT S/P Right leg BKA 02/18/[address] Fontaine for chronic diabetic foot ulcer and osteomyelitis Hypercalcemia - hx of chronic intermittent per clinic notes. Prior workup included ionized calcium levels. Atrial fibrillation, anticoagulated on coumadin. Echo 03/18/15 showed EF 65-70%, biatrial enlargement and mild pulm HTN HTN DM type 2, insulin dependent (diagnosed in 1998). A1c was 7.0% in August, PVD Obesity Hypothyroidism Hyperlipidemia Osteopenia Intermittent hypercalcemia Charcot Osteomyelitis right foot - resolved Possible dementia - daughter reports worsening memory issues for the last 2 years PLAN Discussed with Oscar Pierce APRN - do not feel that postop antibiotics are needed prophylactically. Infected part of her foot/leg has been removed. No need at this time for ID consultation. Morphine pump for pain. Consult PT/OT. Mild normocytic anemia - monitor Hypercalcemia with Ca of 10.9 Telemetry due to history of a-fib. Continue metoprolol and nifedipine for rate control. Coumadin per pharmacy protocol. Lovenox to bridge until INR is therapeutic. Monitor blood sugars fasting and postprandial - continue oral diabetic meds and insulin. Lind is in place - DC WILLI. Pt is hesitant to DC because it is very difficult for her to use a bedpan since she can't lift herself up. Hopefully we will be able to DC Lind in 1-2 days. Discussed expectations and discharge plans with family: they are interested in SNF. Her mobility and functionality was limited prior to this surgery so they are unsure if she will be able engage in IRU requirements. Will consult CM for discharge planning. With noted memory issues, she is high risk for delirium. Discussed signs with family and nonpharmacological treatments. <Magdalena Kent - Last Filed: 02/18/17 20:42> History of Present Illness Date: 02/18/17 [facility] Patient Stated Medical History Cataracts Yes Cardiac Arrhythmia Yes: Afib Hypertension Yes Asthma No Bronchitis No Chronic Obstructive Pulmonary No Disease (COPD) Pneumonia No Pulmonary Edema No Pulmonary Embolism No Sleep Apnea No Tuberculosis No Other Respiratory No Diabetes Mellitus Type 1 Yes Diabetes Mellitus Type 2 Yes Gastroesophageal Reflux Yes Disease Hx Renal Disease No Clotting Problems Yes: WARFARIN Other Musculoskeletal Yes: Right leg wound MRSA Yes Other Infectious Yes: OSTEOMYELITIS R ANKLE Anesthesia Reactions No Blood Transfusions No Chemotherapy No Malignant Hyperthermia No Other No Post Menopausal Yes Now No Exam Vital Signs: Temperature 99.1 F 02/18/17 15:16 Pulse Rate 79 02/18/17 18:01 Respiratory Rate 16 02/18/17 15:39 Blood Pressure 102/51 02/18/17 18:01 Pulse Oximetry 96 02/18/17 18:01 Height/Weight/BMI: Height 1.7 m Weight 90.9 kg Body Mass Index 31.4 Results - Labs CBC & Chem 7: 02/18/17 09:13 02/18/17 09:13 Assessment and Plan (1) Amputated below knee Current visit: Yes Status: Acute (2) Normocytic anemia Current visit: Yes Status: Acute (3) Hypercalcemia Current visit: Yes Status: Acute Assessment and Plan: I have independently evaluated and examined this patient. I reviewed the chart, the patient's history, and the AOC DIRECTOR COMBAT PLANS OFFICER/PA's documented findings as above. We discussed and formulated the assessment and plan as above with additions as below: Mrs. Vasquez was seen postoperatively. She has had a right lateral malleolar ulceration over the past 18 months evolving to osteomyelitis; she has known peripheral vascular disease in addition to diabetes mellitus. Patient was doing well when seen indicating no pain of significance nor nausea and vomiting. Multiple family members were at the bedside and voiced no current concerns. NAD, alert, oxygen saturation 100% on 1 L Respirations nonlabored, good airflow, breath sounds clear Abdomen benign, dressing on right AKA; prior left AKA. Most recent arterial Doppler of the right lower extremity was in October of this year demonstrating interval resolution of previously described stenotic lesions in the superficial femoral and popliteal arteries. MRI of the right foot on 02/01 demonstrated changes suspicious for osteomyelitis around the proximal first metatarsal adjacent to the ulceration. Surgery did not feel the postoperative antibiotics needed due to the wide surgical margin, pathology pending. Hemodynamically stable, heart rate well controlled. Orders as noted above. Discharge anticipated to [place] when surgically stable for rehabilitation. Discussed with Dr. Fontaine, recent x-rays reviewed as noted above, laboratory data reviewed. Hospital Course Summary Disclaimer: The visit summary below is not to be considered part of the above Progress Note. Addendum entered and electronically signed by April Juarez APRN 02/18/17 17: 09: Advanced directives: is DPOA; has living will. DNR status. Family in agreement.
[2017-02-18] MEDS ORDERED: SENNA + DOCUSATE TABLET PO PRN (17:07)
[2017-02-18] MEDS ORDERED: POLYETHYL GLYCOL 3350 17gm PACKET PO PRN (17:07)
[2017-02-18] MEDS: INSULIN GLARGINE 100unit/ml INJECTION SQ SCH (21:44)
[2017-02-18] MEDS: FAMOTIDINE PB 20 MG/50 ML BAG IV SCH (21:45)
[2017-02-19] MEDS: NS 1,000 ML IV SCH ×3 (02:46→22:08)
[2017-02-19] MEDS: HYDROCODONE/APAP 5mg/325mg TABLET PO PRN ×4 (04:38→21:41)
[2017-02-19] MEDS: LEVOTHYROXINE 88 MCG TABLET PO SCH (06:08)
--- NOTE | 2017-02-19 07:58 | Pharmacy Consult ---
Pharmacy Consult-Warfarin - Laboratory Information 02/18/17 02/19/17 09:13 04:31 INR 1.10 1.19 COUMADIN CONSULT (Initial): Dx: Atrial Fibrillation 76 yo female admitted for stage IV diabetic pressure ulcer to the right later malleolus. Patient has undergone wound care for 15 months. Amputation right below the knee was recommended and dose on 02/18. The patient has a history of warfarin 3 mg daily. Date INR Dose 02/18 1.10 No dose 02/19 1.19 Plan 3 mg The patient is going to have bridging with enoxaparin starting this evening. I am ordering Warfarin 3 mg po today. The Pharmacy will continue to monitor the INR's and adjust the dosage of the Coumadin accordingly. Thank you for the Protocol, Aryan Murray RPh
--- NOTE | 2017-02-19 08:26 | Operative Note ---
DATE OF SERVICE 02/18/2017 SURGEON Saman Fontaine MD PREOPERATIVE DIAGNOSIS Refractory osteomyelitis involving right foot, nonhealing right diabetic foot ulcers. POSTOPERATIVE DIAGNOSIS Refractory osteomyelitis involving right foot, nonhealing right diabetic foot ulcers. PROCEDURE Right [id number]-hrp-[id number] amputation. ANESTHESIA General BRIEF HISTORY/INDICATIONS Mrs. Vasquez is a 76-year-old diabetic female who has had the misfortune of developing several progressive ulcerations involving her right foot. Despite advanced wound therapy consisting of negative wound pressure therapy, excisional surgical debridement, utilization of hyperbaric oxygen therapy and the use of negative wound pressure therapy, the patient has been unable to heal her right diabetic foot ulcers. The patient recently was found to have recurrent osteomyelitis involving the right lateral malleolar region. As a result of her recurrent osteomyelitis and the progression of her right diabetic foot ulcerations despite advanced wound therapy, it was my recommendation that we proceed with amputation/right khzxv-hqp-kvhu amputation. Patient presents today to undergo this procedure. For completeness please refer to notes included in the patient's chart. DESCRIPTION OF PROCEDURE After informed consent was obtained, patient was brought to the operative suite and underwent general anesthetic. The patient had previously underwent a prior left [id number] amputation. The left lower extremity was placed directly adjacent to the right lower extremity. Utilizing a marking pen, a point parallel was drawn from the left oyqpd-lhv-lkex stump upon the right lower extremity at the site of her prior amputation involving the left lower extremity. Right lower extremity was then prepped and draped in sterile fashion. Formal time-out was then completed. Next, a transverse incision was made overlying the anterior aspect of the right tibial region at the site that had been marked out previously percutaneously. The incision was then carried caudally upon the posterior aspect of the gastrocnemius about 7-8 cm distally. The underlying subcutaneous tissues were then divided with the use of electrocautery. The fascia was then opened to the extent of the incision as well as a portion of the underlying musculature. The fibula and tibia were then dissected out upon their anterior, medial and lateral aspects. Dissection was carried down to the interosseous membrane between the tibia and fibula. Perhaps 50% of the gastrocnemius musculature was divided. Then I asked for anesthesia to inflate the tourniquet that had been placed upon the right thigh region. Next the tibia and fibula were then transected with an oscillating saw. The interosseous membrane was then opened with cautery. The underlying vasculature was then identified and ligated with 0 Vicryl ties. Remaining portion of the gastrocnemius muscle was then divided with the use of electrocautery. The tourniquet was then deflated. Unfortunately there was very little bleeding coming forth from the gastroc muscles. A few small areas of bleeding were encountered. Meticulous hemostasis was obtained with the use of electrocautery as well as by placing a few simple interrupted sutures of 3-0 Vicryl as well as placing a few additional 0 Vicryl ties. Once meticulous hemostasis had been obtained, attention was then focused back to the tibia. The anterior aspect of the tibia was transected at a 45 degree angle utilizing the oscillating saw once again. Edges of the tibia were then smoothed out utilizing a rasp. Edges of the fibula were also smoothed out utilizing the rasp. Next, attention was directed towards closure. The fascia just beneath the skin adjacent to gastrocnemius muscle was then imbricated to the fascia upon the anterior tibial region by placing multiple swxbso-zv-bhdds sutures of 0 Ethibond. Next, the underlying subcutaneous tissues as well as a portion of subcuticular tissues were then reapproximated in a running fashion with 3-0 Vicryl. Skin was then closed with noe. There was no evidence for vascular compromise of the skin edges. The patient was awakened from her anesthetic and sent back to the recovery room once deemed in stable condition. JUDI
[2017-02-19] MEDS: GLIMEPIRIDE 4 MG TABLET PO SCH (09:08)
[2017-02-19] MEDS: ENOXAPARIN 40 MG/0.4 ML INJECTION SQ SCH (09:08)
[2017-02-19] MEDS: FAMOTIDINE PB 20 MG/50 ML BAG IV SCH ×2 (09:09→21:31)
[2017-02-19] MEDS: INSULIN ASPART 100unit/ml INJECTION SQ PRN ×3 (10:45→21:30)
--- NOTE | 2017-02-19 11:21 | General Surgery Progress Note ---
Subjective Patient reports: no new complaints, pain is less (minimal pain post Right BKA.) , tolerating a regular diet Narrative: she has been up to sit on side of the bed, states this was "wore me out." Stump rewrapped. AGUSTIN with minimal fluid. - Vital Signs Last Vital Signs Temp 98.9 F 02/19/17 08:05 Pulse 71 02/19/17 08:05 Resp 16 02/19/17 08:05 BP 99/53 02/19/17 08:05 Pulse Ox 95 02/19/17 08:05 - Laboratory Result Diagrams: 02/19/17 04:31 02/19/17 04:31 - Normal Exam General: awake, alert Cardiovascular: regular rate Respiratory: no labored breathing Abdominal: non-tender, incision(s) (dressings Right BKA in tackt, ZOE re-wrapped , AGUSTIN with minimal drainage) Assessment and Plan (1) Status post below knee amputation of right lower extremity Current Visit: Yes Status: Acute Plan: she has been up to sit on side of the bed, states this was "wore me out." Stump rewrapped. AGUSTIN with minimal fluid. Plan on seeing her on Wednesday. She may qualify for IRU. PT/OT working with her now. Hospital Course Summary Disclaimer: The visit summary below is not to be considered part of the above Progress Note. Hospital Course: Date of admission: 02/18/17 ASSESSMENT S/P Right leg BKA 02/18/[address] Fontaine for chronic diabetic foot ulcer and osteomyelitis Hypercalcemia - hx of chronic intermittent per clinic notes. Prior workup included ionized calcium levels. Atrial fibrillation, anticoagulated on coumadin. Echo 03/18/15 showed EF 65-70%, biatrial enlargement and mild pulm HTN HTN DM type 2, insulin dependent (diagnosed in 1998). A1c was 7.0% in August, PVD Obesity Hypothyroidism Hyperlipidemia Osteopenia Intermittent hypercalcemia Charcot Osteomyelitis right foot - resolved Possible dementia - daughter reports worsening memory issues for the last 2 years PLAN Discussed with Oscar Pierce APRN - do not feel that postop antibiotics are needed prophylactically. Infected part of her foot/leg has been removed. No need at this time for ID consultation. Morphine pump for pain. Consult PT/OT. Mild normocytic anemia - monitor Hypercalcemia with Ca of 10.9 Telemetry due to history of a-fib. Continue metoprolol and nifedipine for rate control. Coumadin per pharmacy protocol. Lovenox to bridge until INR is therapeutic. Monitor blood sugars fasting and postprandial - continue oral diabetic meds and insulin. Lind is in place - DC WILLI. Pt is hesitant to DC because it is very difficult for her to use a bedpan since she can't lift herself up. Hopefully we will be able to DC Lind in 1-2 days. Discussed expectations and discharge plans with family: they are interested in SNF. Her mobility and functionality was limited prior to this surgery so they are unsure if she will be able engage in IRU requirements. Will consult CM for discharge planning. With noted memory issues, she is high risk for delirium. Discussed signs with family and nonpharmacological treatments. Sepsis Assessment - Evaluation Sepsis screening result: No Definite Risk
[2017-02-19] MEDS ORDERED: WARFARIN 3 MG TABLET PO SCH (12:00)
--- NOTE | 2017-02-19 12:40 | Progress Note ---
DATE 02/19/2017 FINDINGS Mrs. Vasquez is without complaints today. She states that she has been experiencing very little discomfort. OBJECTIVE VITALS: T-max 100.3. Afebrile this morning. Normotensive. EXTREMITIES: Attention was focused to her surgical site involving her right lower extremity. Dressings were removed. There is no evidence for vascular compromise of her flap. The incision is clean, dry and intact. AGUSTIN drainage has been minimal. ASSESSMENT 76-year-old female with multiple medical comorbidities, status post right below- the-knee amputation. Patient doing well from a surgical standpoint. PLAN Dressing will be reapplied. I appreciate the hospitalist's care. The patient will likely be transferred at the beginning of next week to [place] for rehab versus inpatient rehab in our facility. Will defer this to discharge planning and patient's decision. JUDI
--- NOTE | 2017-02-19 12:42 | Progress Note ---
<Dionne Alvarez - Last Filed: 02/19/17 12:32> Subjective: Patient is seen lying in bed today. She reports she is doing well. Her pain is controlled. Overall she has no complaints. Her IV infiltrated overnight and this was changed. She reports that when she did sit up on the edge of the bed that this wore her out. Objective Vital signs: Temperature 99.0 F 02/19/17 11:19 Pulse Rate 78 02/19/17 11:19 Respiratory Rate 16 02/19/17 11:19 Blood Pressure 109/55 02/19/17 11:19 Pulse Oximetry 95 02/19/17 11:19 Height/Weight/BMI: Height 1.7 m Weight 88.2 kg Body Mass Index 31.4 - Constitutional Present: no acute distress, well nourished, well developed - Routine Respiratory Exam Present: CTA bilaterally. Absent: wheezes - Routine Cardiovascular Exam Present: RRR, S1, S2. Absent: murmur - Routine Abdominal Exam Present: soft, normoactive bowel sounds, non distended. Absent: tenderness - Routine Extremities Exam Present: normal capillary refill Comments: Right stump is wrapped. Left below-knee amputation. - Routine Skin Exam Present: dry, warm - Routine Neurological Exam Present: alert, oriented X3 - Routine Lymphatic Exam Lymphatic: Absent: adenopathy - Routine Psychiatric Exam Present: normal affect, normal thought process Results - Labs CBC & Chem 7: 02/19/17 04:31 02/19/17 04:31 Assessment and Plan (1) Amputated below knee Current visit: Yes Status: Acute (2) Normocytic anemia Current visit: Yes Status: Acute (3) Hypercalcemia Current visit: Yes Status: Acute Assessment and Plan: Assessment S/P Right leg BKA 02/18/[address] Fontaine for chronic diabetic foot ulcer and osteomyelitis Hypercalcemia - hx of chronic intermittent per clinic notes. Prior workup included ionized calcium levels. Atrial fibrillation, anticoagulated on coumadin. Echo 03/18/15 showed EF 65-70%, biatrial enlargement and mild pulm HTN HTN DM type 2, insulin dependent (diagnosed in 1998). A1c was 7.0% in August, PVD Obesity Hypothyroidism Hyperlipidemia Osteopenia Intermittent hypercalcemia Charcot Osteomyelitis right foot - resolved Possible dementia - daughter reports worsening memory issues for the last 2 years Plan Insulin Sliding scale was initiated due to some high blood sugars. Her home metformin dose was resumed as well. She has plans to go to [place] for rehabilitation, although family had questioned if she would be a candidate to have rehabilitation here. They have some concerns regarding her insurance coverage. Will have porter sample case discuss with family. Sepsis Assessment - Evaluation Sepsis screening result: No Definite Risk Hospital Course Summary Disclaimer: The visit summary below is not to be considered part of the above Progress Note. Hospital Course: Date of admission: 02/18/17 ASSESSMENT S/P Right leg BKA 02/18/[address] Fontaine for chronic diabetic foot ulcer and osteomyelitis Hypercalcemia - hx of chronic intermittent per clinic notes. Prior workup included ionized calcium levels. Atrial fibrillation, anticoagulated on coumadin. Echo 03/18/15 showed EF 65-70%, biatrial enlargement and mild pulm HTN HTN DM type 2, insulin dependent (diagnosed in 1998). A1c was 7.0% in August, PVD Obesity Hypothyroidism Hyperlipidemia Osteopenia Intermittent hypercalcemia Charcot Osteomyelitis right foot - resolved Possible dementia - daughter reports worsening memory issues for the last 2 years 02/18/17-hospital admission Discussed with Oscar Pierce APRN - do not feel that postop antibiotics are needed prophylactically. Infected part of her foot/leg has been removed. No need at this time for ID consultation. Morphine pump for pain. Consult PT/OT. Mild normocytic anemia - monitor Hypercalcemia with Ca of 10.9 Telemetry due to history of a-fib. Continue metoprolol and nifedipine for rate control. Coumadin per pharmacy protocol. Lovenox to bridge until INR is therapeutic. Monitor blood sugars fasting and postprandial - continue oral diabetic meds and insulin. Lind is in place - DC WILLI. Pt is hesitant to DC because it is very difficult for her to use a bedpan since she can't lift herself up. Hopefully we will be able to DC Lind in 1-2 days. Discussed expectations and discharge plans with family: they are interested in SNF. Her mobility and functionality was limited prior to this surgery so they are unsure if she will be able engage in IRU requirements. Will consult CM for discharge planning. With noted memory issues, she is high risk for delirium. Discussed signs with family and nonpharmacological treatments. 02/19/17 Insulin Sliding scale was initiated due to some high blood sugars. Her home metformin dose was resumed as well. She has plans to go to [place] for rehabilitation, although family had questioned if she would be a candidate to have rehabilitation here. They have some concerns regarding her insurance coverage. Will have porter sample case discuss with family. <Magdalena Kent - Last Filed: 02/19/17 14:52> Objective Vital signs: Temperature 99.0 F 02/19/17 11:19 Pulse Rate 78 02/19/17 11:19 Respiratory Rate 16 02/19/17 11:19 Blood Pressure 109/55 02/19/17 11:19 Pulse Oximetry 95 02/19/17 11:19 Height/Weight/BMI: Height 1.7 m Weight 88.2 kg Body Mass Index 31.4 Results - Labs CBC & Chem 7: 02/19/17 04:31 02/19/17 04:31 Assessment and Plan (1) Amputated below knee Current visit: Yes Status: Acute (2) Normocytic anemia Current visit: Yes Status: Acute Assessment and Plan: I have independently evaluated and examined this patient. I reviewed the chart, the patient's history, and the WATER FILTER CLEANER/PA's documented findings as above. We discussed and formulated the assessment and plan as above with additions as below: Mrs. Vasquez reports that she had a fairly good night. She had a snack 4 AM because she was suddenly hungry at that time but was not hypoglycemic. She denies dyspnea, nausea, or pain. Patient is alert and cooperative Respirations are nonlabored with good airflow Abdomen soft Hemoglobin has dropped from 11.1 to current value of 9.3, calcium has normalized. Current to scale insulin added and metformin resumed. Blood pressure medications remain on hold. Warfarin resumed. In addition to above diagnoses please add: #1 blood loss anemia/chronic anemia #2 peripheral vascular disease Hospital Course Summary Disclaimer: The visit summary below is not to be considered part of the above Progress Note.
[2017-02-19] MEDS: MORPHINE PCA 30 MG/30 ML SYRINGE IV PRN (16:34)
[2017-02-19] MEDS: METFORMIN 500 MG TABLET PO SCH (18:58)
[2017-02-19] MEDS: INSULIN GLARGINE 100unit/ml INJECTION SQ SCH (21:30)
[2017-02-19] MEDS: CALCIUM 500 + VIT D 200 TABLET PO SCH (21:30)
[2017-02-19] MEDS: ATORVASTATIN 40 MG TABLET PO SCH (21:30)
[2017-02-20] MEDS: NS 1,000 ML IV SCH ×3 (01:08→14:35)
[2017-02-20] MEDS: LEVOTHYROXINE 88 MCG TABLET PO SCH (06:09)
--- NOTE | 2017-02-20 08:33 | Pharmacy Consult ---
Pharmacy Consult-Warfarin - Laboratory Information 02/18/17 02/19/17 02/20/17 09:13 04:31 04:54 INR 1.10 1.19 1.33 H COUMADIN CONSULT (Initial): Dx: Atrial Fibrillation 76 yo female admitted for stage IV diabetic pressure ulcer to the right later malleolus. Patient has undergone wound care for 15 months. Amputation right below the knee was recommended and dose on 02/18. The patient has a history of warfarin 3 mg daily. Date INR Dose 02/18 1.10 No dose 02/19 1.19 3 mg 02/20 1.33 Plan 3 mg The patient is bridging with enoxaparin. I am ordering Warfarin 3 mg po today. The Pharmacy will continue to monitor the INR's and adjust the dosage of the Coumadin accordingly. Thank you for the Protocol, Aryan Murray RPh
--- NOTE | 2017-02-20 09:33 | General Surgery Progress Note ---
Subjective Patient reports: still having pain (in right BKA stump with activity, about at the level I would expect. Using [employer]OCIATE for pain control, will keep some IVF going for this for another 1-2 days.), tolerating a regular diet (will decrease IVF to 50ml/hr.), no bowel movement (but feels like she should have one soon.), fever (low grade of 100 this am with repeat of 99 a couple hours later. Encouraged her to be more aggresive with IS and getting out of bed.), other ( She is quite fearful of being dropped, understandably. She needs to have the left prosthesis on if possible when trying to get to camode or chair.) - Vital Signs Last Vital Signs Temp 99.1 F 02/20/17 07:50 Pulse 66 02/20/17 07:50 Resp 12 02/20/17 07:50 BP 94/50 02/20/17 07:50 Pulse Ox 96 02/20/17 07:50 - Laboratory Result Diagrams: 02/20/17 04:54 02/20/17 04:54 Laboratory Tests 02/19/17 02/20/17 04:31 04:54 INR 1.19 1.33 H - Microbiogy Microbiology 02/20/17 00:19 Peripheral/Iv Start Blood Culture - Preliminary Culture Initiated - Results Pending 02/20/17 00:14 Peripheral/Iv Start Blood Culture - Preliminary Culture Initiated - Results Pending - Normal Exam General: awake, alert Cardiovascular: regular rate Respiratory: no labored breathing Abdominal: incision(s) (stump unwrapped, incision and flap look great. No erythema or flap necrosis. Granite all in tact. There is some faint "green" of very early ecchymosis on the flap.) Assessment and Plan (1) Status post below knee amputation of right lower extremity Current Visit: Yes Status: Acute (2) Diabetes type 2, controlled Current Visit: Yes Status: Acute Qualifiers: Diabetes mellitus complication status: with other specified complication Diabetes mellitus chcf insulin use: with chcf use Qualified Code(s) : E11.69 - Type 2 diabetes mellitus with other specified complication; Z79.4 - retirement (current) use of insulin (3) Postsurgical fever Current Visit: Yes Status: Acute Plan: Incision right stump looks great. Fever likely atelectasis, I strongly encouraged her to be more aggressive with IS and getting out of bed. Will try to have PT help with transfer training. She would be more comfortable with her left prosthesis on when transferring to [facility]. Plan on DC Diogo on Wednesday, giving her 2 days to get more comfortable with transfers Will decrease IVF. Coumadin has been restarted, Lovenox bridged. Pharmacy has been consulted. Appreciate hospitalist care of medical concerns. Hospital Course Summary Disclaimer: The visit summary below is not to be considered part of the above Progress Note. Hospital Course: Date of admission: 02/18/17 ASSESSMENT S/P Right leg BKA 02/18/[address] Fontaine for chronic diabetic foot ulcer and osteomyelitis Hypercalcemia - hx of chronic intermittent per clinic notes. Prior workup included ionized calcium levels. Atrial fibrillation, anticoagulated on coumadin. Echo 03/18/15 showed EF 65-70%, biatrial enlargement and mild pulm HTN HTN DM type 2, insulin dependent (diagnosed in 1998). A1c was 7.0% in August, PVD Obesity Hypothyroidism Hyperlipidemia Osteopenia Intermittent hypercalcemia Charcot Osteomyelitis right foot - resolved Possible dementia - daughter reports worsening memory issues for the last 2 years 02/18/17-hospital admission Discussed with Oscar Pierce APRN - do not feel that postop antibiotics are needed prophylactically. Infected part of her foot/leg has been removed. No need at this time for ID consultation. Morphine pump for pain. Consult PT/OT. Mild normocytic anemia - monitor Hypercalcemia with Ca of 10.9 Telemetry due to history of a-fib. Continue metoprolol and nifedipine for rate control. Coumadin per pharmacy protocol. Lovenox to bridge until INR is therapeutic. Monitor blood sugars fasting and postprandial - continue oral diabetic meds and insulin. Diogo is in place - DC WILLI. Pt is hesitant to DC because it is very difficult for her to use a bedpan since she can't lift herself up. Hopefully we will be able to DC Diogo in 1-2 days. Discussed expectations and discharge plans with family: they are interested in SNF. Her mobility and functionality was limited prior to this surgery so they are unsure if she will be able engage in IRU requirements. Will consult CM for discharge planning. With noted memory issues, she is high risk for delirium. Discussed signs with family and nonpharmacological treatments. 02/19/17 Insulin Sliding scale was initiated due to some high blood sugars. Her home metformin dose was resumed as well. She has plans to go to [place] for rehabilitation, although family had questioned if she would be a candidate to have rehabilitation here. They have some concerns regarding her insurance coverage. Will have caseworker intake discuss with family. 02/20/17 09:41 Incision right stump looks great. Fever likely atelectasis, I strongly encouraged her to be more aggressive with IS and getting out of bed. Will try to have PT help with transfer training. She would be more comfortable with her left prosthesis on when transferring to [facility]. Plan on DC Lind on Wednesday, giving her 2 days to get more comfortable with transfers Will decrease IVF. Appreciate hospitalist care of medical concerns Sepsis Assessment - Evaluation Sepsis screening result: No Definite Risk
[2017-02-20] MEDS: CALCIUM 500 + VIT D 200 TABLET PO SCH ×2 (10:13→21:50)
[2017-02-20] MEDS: METFORMIN 500 MG TABLET PO SCH ×3 (10:13→19:42)
[2017-02-20] MEDS: GLIMEPIRIDE 4 MG TABLET PO SCH (10:13)
[2017-02-20] MEDS: ENOXAPARIN 40 MG/0.4 ML INJECTION SQ SCH (10:13)
[2017-02-20] MEDS: FAMOTIDINE PB 20 MG/50 ML BAG IV SCH (10:13)
[2017-02-20] MEDS ORDERED: WARFARIN 3 MG TABLET PO SCH (12:00)
--- NOTE | 2017-02-20 13:57 | Progress Note ---
Subjective: Mrs. Vasquez reports that she has no concerns today. She denied dyspnea, cough, nausea/vomiting, or pain. Her appetite is only fair. She is very reluctant to have Lind catheter removed or get out of bed due to difficulty transferring. Physical therapy has advised against getting her up to a chair due to fall risk at present. Patient denied chills overnight but did have fevers. Objective Vital signs: Temperature 99.5 F 02/20/17 11:16 Pulse Rate 78 02/20/17 11:16 Respiratory Rate 16 02/20/17 11:16 Blood Pressure 118/62 02/20/17 11:16 Pulse Oximetry 92-RA 02/20/17 11:16 I/O [id number] EXAM General-NAD, alert HEENT-conjunctiva clear, oropharynx clear, EOMI Lungs-respirations nonlabored, good airflow, breath sounds clear Cardiac-regular rhythm, S1-S2 Abd-soft, nontender, bowel sounds present Ext-bilateral BKA's, dressing on right-wound examined earlier by Oscar Pierce and not re-examined by myself Neuro-moving upper extremities well Psych-pleasant, cooperative - Height/Weight/BMI: Height 1.7 m Weight 90.7 kg Body Mass Index 31.4 Results - Labs CBC & Chem 7: 02/20/17 04:54 02/20/17 04:54 Labs: Differential unremarkable Blood sugar 183-199 so far today; range 123-271 yesterday UA negative for nitrate, leukocyte esterase; 3-5 WBCs INR 1.33 Microbiology Results: Microbiology 02/20/17 00:19 Peripheral/Iv Start Blood Culture - Preliminary Culture Initiated - Results Pending 02/20/17 00:14 Peripheral/Iv Start Blood Culture - Preliminary Culture Initiated - Results Pending - Imaging and Cardiology Chest x-ray Status: image reviewed by me (portable chest x-ray reviewed by myself-NAD.) Assessment and Plan (1) Amputated below knee Current visit: Yes Status: Acute (2) Normocytic anemia Current visit: Yes Status: Acute DVT Prophylaxis: Lovenox, Coumadin GI Prophylaxis: Pepcid Resuscitation Status: Do Not Resuscitate Assessment and Plan: ASSESSMENT S/P Right leg BKA 02/18/[address] Fontaine for chronic diabetic foot ulcer and osteomyelitis Acute blood loss anemia/chronic anemia Postoperative fever Peripheral vascular disease CKD, stage III Atrial fibrillation, anticoagulated on coumadin. Echo 03/18/15 showed EF 65-70%, biatrial enlargement and mild pulm HTN HTN DM type 2, insulin dependent (diagnosed in 1998). A1c was 7.0% in August, Hypercalcemia - hx of chronic intermittent per clinic notes. Prior workup included ionized calcium levels. Obesity Hypothyroidism Hyperlipidemia Osteopenia Intermittent hypercalcemia Charcot Osteomyelitis right foot - resolved Possible dementia - daughter reports worsening memory issues for the last 2 years PLAN: Fever overnight, urine, chest x-ray, and surgical wound (per nursing/surgical reports) unremarkable. Patient encouraged to use incentive spirometer regularly. Optimal that she be out of bed but physical therapy has not yet cleared her to safely transfer to chair. Encouraged patient to be upright in bed as much as possible. Continued mild drop in hemoglobin, asymptomatic. Monitor intermittently. Day 2 postop, preferable Lind be out-initiate bladder training. Blood sugars remain modestly elevated, Lantus increased to 15 units at bedtime. Check A1c. Continue warfarin-3 mg today. Continue Lovenox until INR therapeutic. Renal function stable. Pepcid converted to oral administration. Discussed with nursing/Dr. Jefferson. Sepsis Assessment - Evaluation Sepsis screening result: No Definite Risk Hospital Course Summary Disclaimer: The visit summary below is not to be considered part of the above Progress Note. Hospital Course: Date of admission: 02/18/17 ASSESSMENT S/P Right leg BKA 02/18/[address] Fontaine for chronic diabetic foot ulcer and osteomyelitis Hypercalcemia - hx of chronic intermittent per clinic notes. Prior workup included ionized calcium levels. Atrial fibrillation, anticoagulated on coumadin. Echo 03/18/15 showed EF 65-70%, biatrial enlargement and mild pulm HTN HTN DM type 2, insulin dependent (diagnosed in 1998). A1c was 7.0% in August, PVD Obesity Hypothyroidism Hyperlipidemia Osteopenia Intermittent hypercalcemia Charcot Osteomyelitis right foot - resolved Possible dementia - daughter reports worsening memory issues for the last 2 years 02/18/17-hospital admission Discussed with Oscar Pierce APRN - do not feel that postop antibiotics are needed prophylactically. Infected part of her foot/leg has been removed. No need at this time for ID consultation. Morphine pump for pain. Consult PT/OT. Mild normocytic anemia - monitor Hypercalcemia with Ca of 10.9 Telemetry due to history of a-fib. Continue metoprolol and nifedipine for rate control. Coumadin per pharmacy protocol. Lovenox to bridge until INR is therapeutic. Monitor blood sugars fasting and postprandial - continue oral diabetic meds and insulin. Diogo is in place - DC WILLI. Pt is hesitant to DC because it is very difficult for her to use a bedpan since she can't lift herself up. Hopefully we will be able to DC Diogo in 1-2 days. Discussed expectations and discharge plans with family: they are interested in SNF. Her mobility and functionality was limited prior to this surgery so they are unsure if she will be able engage in IRU requirements. Will consult CM for discharge planning. With noted memory issues, she is high risk for delirium. Discussed signs with family and nonpharmacological treatments. 02/19/17 Insulin Sliding scale was initiated due to some high blood sugars. Her home metformin dose was resumed as well. She has plans to go to [place] for rehabilitation, although family had questioned if she would be a candidate to have rehabilitation here. They have some concerns regarding her insurance coverage. Will have embedded case manager discuss with family. 02/20/17 09:41 Incision right stump looks great. Fever likely atelectasis, I strongly encouraged her to be more aggressive with IS and getting out of bed. Will try to have PT help with transfer training. She would be more comfortable with her left prosthesis on when transferring to [facility]. Plan on DC Diogo on Wednesday, giving her 2 days to get more comfortable with transfers Will decrease IVF. Appreciate hospitalist care of medical concerns 02/20/17 14:15 Fever overnight, urine, chest x-ray, and surgical wound (per nursing/surgical reports) unremarkable. Patient encouraged to use incentive spirometer regularly. Optimal that she be out of bed but physical therapy has not yet cleared her to safely transfer to chair. Encouraged patient to be upright in bed as much as possible. Continued mild drop in hemoglobin, asymptomatic. Monitor intermittently. Day 2 postop, preferable Lind be out-initiate bladder training. Blood sugars remain modestly elevated, Lantus increased to 15 units at bedtime. Check A1c. Continue warfarin-3 mg today. Continue Lovenox until INR therapeutic. Renal function stable. Pepcid converted to oral administration.
[2017-02-20] MEDS: ATORVASTATIN 40 MG TABLET PO SCH (21:49)
[2017-02-20] MEDS: FAMOTIDINE 20 MG TABLET PO SCH (21:50)
[2017-02-20] MEDS: INSULIN GLARGINE 100unit/ml INJECTION SQ SCH (21:50)
[2017-02-21] MEDS: NS 1,000 ML IV SCH ×2 (05:43)
[2017-02-21] MEDS: LEVOTHYROXINE 88 MCG TABLET PO SCH (06:14)
[2017-02-21] MEDS: GLIMEPIRIDE 4 MG TABLET PO SCH (08:33)
[2017-02-21] MEDS: CALCIUM 500 + VIT D 200 TABLET PO SCH ×2 (08:34→21:59)
[2017-02-21] MEDS: ENOXAPARIN 40 MG/0.4 ML INJECTION SQ SCH (08:34)
[2017-02-21] MEDS: METFORMIN 500 MG TABLET PO SCH ×3 (08:34→18:26)
[2017-02-21] MEDS: FAMOTIDINE 20 MG TABLET PO SCH ×2 (08:35→21:59)
[2017-02-21] MEDS: HYDROCODONE/APAP 5mg/325mg TABLET PO PRN (09:34)
--- NOTE | 2017-02-21 10:42 | Pharmacy Consult ---
Pharmacy Consult-Warfarin - Laboratory Information 02/18/17 02/19/17 02/20/17 09:13 04:31 04:54 INR 1.10 1.19 1.33 H 02/21/17 05:21 INR 1.28 H COUMADIN CONSULT (Initial): Dx: Atrial Fibrillation 76 yo female admitted for stage IV diabetic pressure ulcer to the right later malleolus. Patient has undergone wound care for 15 months. Amputation right below the knee was recommended and dose on 02/18. The patient has a history of warfarin 3 mg daily. Date INR Dose 02/18 1.10 No dose 02/19 1.19 3 mg 02/20 1.33 3 mg 03/02 1.29 Plan 6 mg The patient is bridging with enoxaparin. I am ordering Warfarin 6 mg po today as the INR did not increase as anticipated. The Pharmacy will continue to monitor the INR's and adjust the dosage of the Coumadin accordingly. Thank you for the Protocol, Aryan Murray RPh
--- NOTE | 2017-02-21 10:45 | XRay Report ---
Indication: Fever PROCEDURE: XR chest 1V: Encounter: Initial Comparison: None FINDINGS: The lungs are clear. There is no abnormal airspace opacity, pleural effusion or pneumothorax identified. The heart size, pulmonary vasculature and mediastinum are within normal limits. No significant skeletal abnormality is seen. IMPRESSION: No acute cardiopulmonary abnormality. .
[2017-02-21] MEDS: INSULIN ASPART 100unit/ml INJECTION SQ PRN ×2 (11:40→21:59)
[2017-02-21] MEDS: WARFARIN 6 MG TABLET PO SCH ×2 (12:12→13:08)
[2017-02-21] MEDS ORDERED: SALINE FLUSH 10ml SYRINGE IV PRN (14:33)
--- NOTE | 2017-02-21 14:49 | Progress Note ---
<LarryApril D - Last Filed: 02/21/17 14:46> Subjective: Patient was seen after using the bedside commode. She was able to wiggle herself over from the bed to the commode using a board and ORTHOTIC FINISH GRINDING TECHNICIAN assistance. She actually did quite well, and she states that she feels strong. She states that she can do things when she really wants to. She denies any chills or rigors with her fevers. Her nurse reports that she looked at the right leg amputation yesterday with Jun, and there was no evidence of infection. She has not been feeling short of breath or having a cough. Her nurse, however, reports that she has not been completely receptive to the idea of using her incentive spirometer on a regular basis. Appetite has been good and she denies any abdominal pain, nausea or constipation. She had a small bowel movement this morning. Objective Vital signs: Temperature 96.6 F L 02/21/17 12:10 Pulse Rate 73 02/21/17 12:10 Respiratory Rate 18 02/21/17 12:10 Blood Pressure 107/55 02/21/17 12:10 Pulse Oximetry 98 02/21/17 12:10 Rhythm: Normal Sinus Rhythm Height/Weight/BMI: Height 1.7 m Weight 88.2 kg Body Mass Index 31.4 - Constitutional Present: no acute distress, well nourished, well developed, obese - Routine HEENT Exam ENT: Present: oropharynx clear - Routine Respiratory Exam Present: CTA bilaterally - Routine Cardiovascular Exam Present: RRR, S1, S2 - Routine Abdominal Exam Present: soft, normoactive bowel sounds, non distended, non tender - Routine Extremities Exam Present: amputation (dressing to right lower extremity is in place. There is minimal sanguinous drainage in the AGUSTIN drain.) - Routine Back/Spine/Pelvis Exam Back/Spine: Present: full ROM - Routine Skin Exam Present: dry, warm - Routine Neurological Exam Present: alert, oriented X3 - Routine Psychiatric Exam Present: normal affect, normal thought process, cooperative Results - Labs CBC & Chem 7: 02/21/17 05:21 02/21/17 05:21 Microbiology Results: Microbiology 02/20/17 00:19 Peripheral/Iv Start Blood Culture - Preliminary No Growth After 1 Day 02/20/17 00:14 Peripheral/Iv Start Blood Culture - Preliminary No Growth After 1 Day Assessment and Plan (1) Amputated below knee Current visit: Yes Status: Acute (2) Normocytic anemia Current visit: Yes Status: Acute DVT Prophylaxis: Lovenox, Coumadin GI Prophylaxis: Pepcid Resuscitation Status: Do Not Resuscitate Assessment and Plan: ASSESSMENT S/P Right leg BKA 02/18/[address] Fontaine for chronic diabetic foot ulcer and osteomyelitis Acute blood loss anemia/chronic anemia Postoperative fever Peripheral vascular disease CKD, stage III Atrial fibrillation, anticoagulated on coumadin. Echo 03/18/15 showed EF 65-70%, biatrial enlargement and mild pulm HTN HTN DM type 2, insulin dependent (diagnosed in 1998). A1c was 7.0% in August, Hypercalcemia - hx of chronic intermittent per clinic notes. Prior workup included ionized calcium levels. Obesity Hypothyroidism Hyperlipidemia Osteopenia Intermittent hypercalcemia Charcot Osteomyelitis right foot - resolved Possible dementia - daughter reports worsening memory issues for the last 2 years PLAN: Intermittent fevers continue. MAXIMUM TEMPERATURE 101.3 in the last 24 hours. No fever since midnight. Chest x-ray surgical wound and urine were all negative for infection. Blood cultures negative after 1 day. Bladder retraining in process - likely DC Lind tomorrow. INR is still subtherapeutic at 1.28, will continue Lovenox Hemoglobin improved to 8.6. Pain fairly well controlled with oral narcotics. Discussed with nursing staff and with Dr. Kent. Sepsis Assessment - Evaluation Sepsis screening result: No Definite Risk Hospital Course Summary Disclaimer: The visit summary below is not to be considered part of the above Progress Note. Hospital Course: Date of admission: 02/18/17 ASSESSMENT S/P Right leg BKA 02/18/[address] Fontaine for chronic diabetic foot ulcer and osteomyelitis Hypercalcemia - hx of chronic intermittent per clinic notes. Prior workup included ionized calcium levels. Atrial fibrillation, anticoagulated on coumadin. Echo 03/18/15 showed EF 65-70%, biatrial enlargement and mild pulm HTN HTN DM type 2, insulin dependent (diagnosed in 1998). A1c was 7.0% in August, PVD Obesity Hypothyroidism Hyperlipidemia Osteopenia Intermittent hypercalcemia Charcot Osteomyelitis right foot - resolved Possible dementia - daughter reports worsening memory issues for the last 2 years 02/18/17-hospital admission Discussed with Oscar Pierce PARTITION MAKING MACHINE OPERATOR - do not feel that postop antibiotics are needed prophylactically. Infected part of her foot/leg has been removed. No need at this time for ID consultation. Morphine pump for pain. Consult PT/OT. Mild normocytic anemia - monitor Hypercalcemia with Ca of 10.9 Telemetry due to history of a-fib. Continue metoprolol and nifedipine for rate control. Coumadin per pharmacy protocol. Lovenox to bridge until INR is therapeutic. Monitor blood sugars fasting and postprandial - continue oral diabetic meds and insulin. Lind is in place - DC WILLI. Pt is hesitant to DC because it is very difficult for her to use a bedpan since she can't lift herself up. Hopefully we will be able to DC Lind in 1-2 days. Discussed expectations and discharge plans with family: they are interested in SNF. Her mobility and functionality was limited prior to this surgery so they are unsure if she will be able engage in IRU requirements. Will consult CM for discharge planning. With noted memory issues, she is high risk for delirium. Discussed signs with family and nonpharmacological treatments. 02/19/17 Insulin Sliding scale was initiated due to some high blood sugars. Her home metformin dose was resumed as well. She has plans to go to [place] for rehabilitation, although family had questioned if she would be a candidate to have rehabilitation here. They have some concerns regarding her insurance coverage. Will have telehealth case manager discuss with family. 02/20/17 Incision right stump looks great. Fever likely atelectasis, I strongly encouraged her to be more aggressive with IS and getting out of bed. Will try to have PT help with transfer training. She would be more comfortable with her left prosthesis on when transferring to [facility]. Plan on DC Lind on Wednesday, giving her 2 days to get more comfortable with transfers Will decrease IVF. Appreciate hospitalist care of medical concerns 02/20/17 Fever overnight, urine, chest x-ray, and surgical wound (per nursing/surgical reports) unremarkable. Patient encouraged to use incentive spirometer regularly. Optimal that she be out of bed but physical therapy has not yet cleared her to safely transfer to chair. Encouraged patient to be upright in bed as much as possible. Continued mild drop in hemoglobin, asymptomatic. Monitor intermittently. Day 2 postop, preferable Lind be out-initiate bladder training. Blood sugars remain modestly elevated, Lantus increased to 15 units at bedtime. Check A1c. Continue warfarin-3 mg today. Continue Lovenox until INR therapeutic. Renal function stable. Pepcid converted to oral administration. 02/21/17 Intermittent fevers continue. MAXIMUM TEMPERATURE 101.3 in the last 24 hours. No fever since midnight. Chest x-ray surgical wound and urine were all negative for infection. Bladder retraining in process - likely DC Lind tomorrow. INR is still subtherapeutic at 1.28, will continue Lovenox Hemoglobin improved to 8.6. Pain fairly well controlled with oral narcotics. <Magdalena Kent - Last Filed: 02/21/17 15:13> Objective Vital signs: Temperature 96.6 F L 02/21/17 12:10 Pulse Rate 73 02/21/17 12:10 Respiratory Rate 18 02/21/17 12:10 Blood Pressure 107/55 02/21/17 12:10 Pulse Oximetry 98 02/21/17 12:10 Height/Weight/BMI: Height 1.7 m Weight 88.2 kg Body Mass Index 31.4 Results - Labs CBC & Chem 7: 02/21/17 05:21 02/21/17 05:21 Microbiology Results: Microbiology 02/20/17 00:19 Peripheral/Iv Start Blood Culture - Preliminary No Growth After 1 Day 02/20/17 00:14 Peripheral/Iv Start Blood Culture - Preliminary No Growth After 1 Day Assessment and Plan (1) Amputated below knee Current visit: Yes Status: Acute (2) Normocytic anemia Current visit: Yes Status: Acute Assessment and Plan: I have independently evaluated and examined this patient. I reviewed the chart, the patient's history, and the PARTITION MAKING MACHINE OPERATOR/PA's documented findings as above. We discussed and formulated the assessment and plan as above with additions as below: Mrs. Vasquez reports that she feels fairly good today. She again had fever overnight. Bladder training underway with plans to discontinue Lnid in the morning. Blood cultures drawn yesterday morning negative. Tolerated getting up in a wheelchair this morning. NAD, alert Respirations nonlabored, good airflow, breath sounds clear Recurrent nocturnal fever, no indication of infection by workup to date. Incentive spirometry encouraged in conjunction with increased time out of bed. SHAREPOINT ARCHITECT discontinued, IV fluids discontinued-good oral intake. Warfarin increased to 6 mg 1 today due to drop in INR. Potentially to [facility] tomorrow. High-risk medications in use, chest x-ray rereviewed in light of fever. Discussed with nursing who provide supplemental history. Hospital Course Summary Disclaimer: The visit summary below is not to be considered part of the above Progress Note.
[2017-02-21] MEDS: INSULIN GLARGINE 100unit/ml INJECTION SQ SCH (21:59)
[2017-02-21] MEDS: ATORVASTATIN 40 MG TABLET PO SCH (22:25)
[2017-02-22] MEDS: LEVOTHYROXINE 88 MCG TABLET PO SCH (06:01)
--- NOTE | 2017-02-22 07:46 | Pharmacy Consult ---
Pharmacy Consult-Warfarin - Laboratory Information 02/18/17 02/19/17 02/20/17 09:13 04:31 04:54 INR 1.10 1.19 1.33 H 02/21/17 02/22/17 05:21 06:06 INR 1.28 H 1.29 H - Consult Information COUMADIN CONSULT (Initial): Dx: Atrial Fibrillation 76 yo female admitted for stage IV diabetic pressure ulcer to the right later malleolus. Patient has undergone wound care for 15 months. Amputation right below the knee was recommended and dose on 02/18. The patient has a history of warfarin 3 mg daily. Date INR Dose 02/18 1.10 No dose 02/19 1.19 3 mg 02/20 1.33 3 mg 02/21 1.28 6 mg 02/22 1.29 plan 7.5mg The patient is bridging with enoxaparin. I am ordering Warfarin 7.5 mg po today as the INR did not increase as anticipated. The Pharmacy will continue to monitor the INR's and adjust the dosage of the Coumadin accordingly. Thanks
[2017-02-22] MEDS: METFORMIN 500 MG TABLET PO SCH ×3 (08:42→17:32)
[2017-02-22] MEDS: GLIMEPIRIDE 4 MG TABLET PO SCH (08:42)
[2017-02-22] MEDS: CALCIUM 500 + VIT D 200 TABLET PO SCH ×2 (08:42→20:27)
[2017-02-22] MEDS: FAMOTIDINE 20 MG TABLET PO SCH ×2 (08:42→20:27)
[2017-02-22] MEDS: ENOXAPARIN 40 MG/0.4 ML INJECTION SQ SCH (08:43)
--- NOTE | 2017-02-22 09:35 | General Surgery Progress Note ---
Subjective Patient reports: feels better, pain is less, tolerating a regular diet, voiding w/o difficulty, bowel movement Narrative: She tells me she is going to [place], probably tomorrow. Her left stump has shrunk and the prosthesis is loose, which cause blisters on the posterior distal thigh. There is Mepilex on there now. is bringing thicker "socs" for that left stump to help make the prosthesis fit. Lind and COAL HAULER have already been DC'd. Pain is controlled with [place]. She does not always get to the commode in time for voids and has Depends on, but states she is getting better about knowing when to call for help. Denies any other concerns, no chest pain, abd pain, SOA. - Vital Signs Last Vital Signs Temp 98.5 F 02/22/17 08:00 Pulse 72 02/22/17 08:00 Resp 18 02/22/17 08:00 BP 132/65 02/22/17 08:00 Pulse Ox 96 02/22/17 08:00 - Laboratory Result Diagrams: 02/22/17 06:06 02/22/17 06:06 - Microbiogy Microbiology 02/20/17 00:19 Peripheral/Iv Start Blood Culture - Preliminary No Growth After 2 Days 02/20/17 00:14 Peripheral/Iv Start Blood Culture - Preliminary No Growth After 2 Days - Normal Exam General: awake, alert, oriented Cardiovascular: regular rate Respiratory: clear all ivey, no labored breathing Abdominal: soft, non-tender, incision(s) (Right BKA stump with some light ecchymoisis as expected, no erythema or necrosis of incision or flap. AGUSTIN has had 0-1 ml/24 hours and is DC'd. New Zerform strip placed over noe, then single layer gauze and single layer Kerlex roll followed by the largest Tens[place]ape for moderate compression.) Psychiatric: normal affect Assessment and Plan (1) Status post below knee amputation of right lower extremity Current Visit: Yes Status: Acute (2) Diabetes type 2, controlled Current Visit: Yes Status: Acute Qualifiers: Diabetes mellitus complication status: with other specified complication Diabetes mellitus dinkey engine mechanic insulin use: with dinkey engine mechanic use Qualified Code(s) : E11.69 - Type 2 diabetes mellitus with other specified complication; Z79.4 - detention (current) use of insulin Assessment and plan: POD #4 Right BKA incision and flap look good, no necrosis or infection. AGUSTIN Dc'd this morning. Continue with Xeroform strip over the noe then dry gauze and Tensoshape for mild to moderate compression. Pain controlled with [place]. Anticipate DC to [place] later today or more likely tomorrow. Would like to leave noe in at least 3 weeks, her tissues will not heal quickly. Follow up in Dr. Fontaine's office Mar 10 at2:30 pm (3) Postsurgical fever Current Visit: Yes Status: Acute Hospital Course Summary Disclaimer: The visit summary below is not to be considered part of the above Progress Note. Hospital Course: Date of admission: 02/18/17 ASSESSMENT S/P Right leg BKA 02/18/[address] Fontaine for chronic diabetic foot ulcer and osteomyelitis Hypercalcemia - hx of chronic intermittent per clinic notes. Prior workup included ionized calcium levels. Atrial fibrillation, anticoagulated on coumadin. Echo 03/18/15 showed EF 65-70%, biatrial enlargement and mild pulm HTN HTN DM type 2, insulin dependent (diagnosed in 1998). A1c was 7.0% in August, PVD Obesity Hypothyroidism Hyperlipidemia Osteopenia Intermittent hypercalcemia Charcot Osteomyelitis right foot - resolved Possible dementia - daughter reports worsening memory issues for the last 2 years 02/18/17-hospital admission Discussed with Oscar Pierce APRN - do not feel that postop antibiotics are needed prophylactically. Infected part of her foot/leg has been removed. No need at this time for ID consultation. Morphine pump for pain. Consult PT/OT. Mild normocytic anemia - monitor Hypercalcemia with Ca of 10.9 Telemetry due to history of a-fib. Continue metoprolol and nifedipine for rate control. Coumadin per pharmacy protocol. Lovenox to bridge until INR is therapeutic. Monitor blood sugars fasting and postprandial - continue oral diabetic meds and insulin. Lind is in place - DC WILLI. Pt is hesitant to DC because it is very difficult for her to use a bedpan since she can't lift herself up. Hopefully we will be able to DC Lind in 1-2 days. Discussed expectations and discharge plans with family: they are interested in SNF. Her mobility and functionality was limited prior to this surgery so they are unsure if she will be able engage in IRU requirements. Will consult CM for discharge planning. With noted memory issues, she is high risk for delirium. Discussed signs with family and nonpharmacological treatments. 02/19/17 Insulin Sliding scale was initiated due to some high blood sugars. Her home metformin dose was resumed as well. She has plans to go to [place] for rehabilitation, although family had questioned if she would be a candidate to have rehabilitation here. They have some concerns regarding her insurance coverage. Will have oil field caser discuss with family. 02/20/17 Incision right stump looks great. Fever likely atelectasis, I strongly encouraged her to be more aggressive with IS and getting out of bed. Will try to have PT help with transfer training. She would be more comfortable with her left prosthesis on when transferring to [facility]. Plan on DC Lind on Wednesday, giving her 2 days to get more comfortable with transfers Will decrease IVF. Appreciate hospitalist care of medical concerns 02/20/17 Fever overnight, urine, chest x-ray, and surgical wound (per nursing/surgical reports) unremarkable. Patient encouraged to use incentive spirometer regularly. Optimal that she be out of bed but physical therapy has not yet cleared her to safely transfer to chair. Encouraged patient to be upright in bed as much as possible. Continued mild drop in hemoglobin, asymptomatic. Monitor intermittently. Day 2 postop, preferable Lind be out-initiate bladder training. Blood sugars remain modestly elevated, Lantus increased to 15 units at bedtime. Check A1c. Continue warfarin-3 mg today. Continue Lovenox until INR therapeutic. Renal function stable. Pepcid converted to oral administration. 02/21/17 Intermittent fevers continue. MAXIMUM TEMPERATURE 101.3 in the last 24 hours. No fever since midnight. Chest x-ray surgical wound and urine were all negative for infection. Bladder retraining in process - likely DC Lind tomorrow. INR is still subtherapeutic at 1.28, will continue Lovenox Hemoglobin improved to 8.6. Pain fairly well controlled with oral narcotics. 02/22/17 09:51 POD #4 Right BKA incision and flap look good, no necrosis or infection. AGUSTIN Dc'd this morning. Continue with Xeroform strip over the noe then dry gauze and Tensoshape for mild to moderate compression. Pain controlled with [place]. Anticipate DC to [place] later today or more likely tomorrow. Would like to leave noe in at least 3 weeks, her tissues will not heal quickly. Follow up in Dr. Fontaine's office Mar 10 at2:30 pm Sepsis Assessment - Evaluation Sepsis screening result: No Definite Risk
--- NOTE | 2017-02-22 09:57 | Discharge Instructions ---
Discharge Plan - Med Rec/Dispo Referrals/Follow Up: Saman Fontaine MD [Physician] - 03/10/17 2:30 pm (at his [facility] [place] [facility] ( not wound clinic)) Additional Instructions: Xeroform gauze strip and single layer gauze to stump incision through Feb 25. Then dressings as needed. May start to shower 02-25-2017 if incision remains in tact, no tub or soaking the stump. Mild to moderate compression on right stump, can gradually increase as the stump heals and becomes less tender. Prescriptions: No Action Warfarin Sodium [Coumadin] 3 mg PO DAILY Spironolactone [Aldactone] 100 mg PO DAILY NIFEdipine [Nifedipine ER] 1 tab PO DAILY Metoprolol Tartrate [Lopressor] 12.5 mg PO WB Metformin [Glucophage] 500 mg PO TID Levothyroxine Tab [Synthroid] 88 mcg PO ACB Irbesartan [Avapro] 1 tab PO DAILY Insulin Glargine [Lantus] 10 units SQ HS Calcium 500 + D [Os [place]-D 500] 1 tab PO BID Acetaminophen [Non-Aspirin Pain Relief] 500 mg PO Q4-6HPRN PRN PRN Reason: Pain Atorvastatin [Lipitor] 80 mg PO DAILY Glimepiride [Amaryl] 4 mg PO DAILY Multivitamin [Multivitamins] 1 each PO DAILY
--- NOTE | 2017-02-22 11:38 | Progress Note ---
<Lilliam Prince - Last Filed: 02/22/17 11:33> Subjective: Mrs. Vasquez is seen today in follow up for her right below the knee amputation by Dr. Fontaine on 02/18/17. She is seen while resting in bed with family and friends at the bedside. She reports that she is doing well and denies any complaints including no chest pain, shortness of breath, abdominal pain, nausea , vomiting or dysuria. She is easy-going about her discharge to [facility] which is expected to occur tomorrow. She denies any pain and states that she has not had any pain medication since the discontinuation of her pain pump. She has been working with therapy and feels like it is going well. Her appetite is stable, though she admits that it is not where she thinks it should be but attributes that to frequently receiving cold meals. Her bowels are moving daily. Prior medical records and nursing notes were reviewed. Labs today revealed stable anemia with hemoglobin of 8.6, new thrombocytosis with platelets at 428. BMP is unremarkable. INR remains subtherapeutic at 1.29. Objective Vital signs: Temperature 97.5 F 02/22/17 11:17 Pulse Rate 75 02/22/17 11:17 Respiratory Rate 16 02/22/17 11:17 Blood Pressure 129/64 02/22/17 11:17 Pulse Oximetry 95 02/22/17 11:17 Rhythm: Normal Sinus Rhythm Height/Weight/BMI: Height 5 ft 7 in Weight 189 lb 9.561 oz Body Mass Index 31.4 - Constitutional Present: no acute distress, well nourished, well developed, cooperative - Routine HEENT Exam Head: Present: normocephalic, atraumatic Eye: Present: PERRL. Absent: conjunctival icterus ENT: Present: mucous membranes moist - Routine Respiratory Exam Present: CTA bilaterally. Absent: stridor, wheezes, crackles - Routine Cardiovascular Exam Present: RRR, S1, S2 - Routine Abdominal Exam Present: soft, normoactive bowel sounds, non distended, non tender - Routine Extremities Exam Present: no edema, pulses intact (radial bilaterally) Comments: skin break down noted to left stump which patient reports is from ill-fitting prosthetic. No bleeding or signs of infection. Bandage noted to right stump which is clean, dry and intact. - Routine Back/Spine/Pelvis Exam Back/Spine: Present: full ROM - Routine Musculoskeletal Exam Musculoskeletal: Present: moving extremities well - Routine Skin Exam Present: dry, warm. Absent: jaundice Comments: afebrile today. - Routine Neurological Exam Present: alert, oriented X3, moving all extremities, hearing grossly intact, normal speech. Absent: facial asymmetry - Routine Lymphatic Exam Lymphatic: Absent: lymphedema - Routine Psychiatric Exam Present: normal affect, cooperative, good insight, good judgment Results - Labs CBC & Chem 7: 02/22/17 06:06 02/22/17 06:06 Microbiology Results: Microbiology 02/20/17 00:19 Peripheral/Iv Start Blood Culture - Preliminary No Growth After 2 Days 02/20/17 00:14 Peripheral/Iv Start Blood Culture - Preliminary No Growth After 2 Days Assessment and Plan (1) Amputated below knee Current visit: Yes Status: Acute (2) Normocytic anemia Current visit: Yes Status: Acute DVT Prophylaxis: Lovenox, Coumadin GI Prophylaxis: Pepcid Resuscitation Status: Do Not Resuscitate Assessment and Plan: ASSESSMENT S/P Right leg BKA 02/18/[address] Fontaine for chronic diabetic foot ulcer and osteomyelitis. Atrial fibrillation, anticoagulated on coumadin. Echo 03/18/15 showed EF 65-70%, biatrial enlargement and mild pulm HTN HTN, chronic. DM type 2, insulin dependent (diagnosed in 1998). A1c was 7.0% in August,. chronic. PVD, chronic. Obesity, chronic. Hypothyroidism, chronic. Hyperlipidemia, chronic. Osteopenia, chronic. Intermittent hypercalcemia, per clinic notes. Prior workup included ionized calcium levels. Charcot, chronic. Osteomyelitis right foot - resolved. Possible dementia - daughter reports worsening memory issues for the last 2 years. PLAN Overall, Mrs. Vasquez is doing well and anticipate discharge to [facility] tomorrow, 02/23/17. Xeroform gauze strips and single layer gauze to remain on right stump until 02/25 and then as needed. She has been cleared to shower beginning on 02/25 as long as her stump incision remains intact. NO tub or soaking of right stump. Continue to encourage mild to moderate compression to right stump, increasing compression as tolerated. Loving to be removed in approximately 3 weeks (on or around 03/11). Follow up with Dr. Fontaine in the [facility] office on 03/10 at 2:30pm. Review of vital signs reveals she has been afebrile today. Last documented fever was 10 at midnight at 101. Continue to monitor closely. Blood cultures remain negative after 2 days. UA was negative. WBC stable at 8.2. Persistent anemia with hemoglobin at 8.6. New thrombocytosis today with platelets at 428. Will continue to monitor blood counts and repeat CBC in AM. INR subtherapeutic today at 1.29. Continue with bridge therapy with Lovenox. Pharmacy to manage anticoagulation with coumadin. Repeat INR in AM. Continue to encourage incentive spirometry for pulmonary toileting. Skin break down noted to left stump secondary to ill-fitting prosthetic. Monitor skin closely for signs of infection. High-risk medications in use. Discussed with nursing who provide supplemental history. - Time spent with patient 25 - 35 minutes Sepsis Assessment - Evaluation Sepsis screening result: No Definite Risk Hospital Course Summary Disclaimer: The visit summary below is not to be considered part of the above Progress Note. Hospital Course: Date of admission: 02/18/17 ASSESSMENT S/P Right leg BKA 02/18/[address] Fontaine for chronic diabetic foot ulcer and osteomyelitis Hypercalcemia - hx of chronic intermittent per clinic notes. Prior workup included ionized calcium levels. Atrial fibrillation, anticoagulated on coumadin. Echo 03/18/15 showed EF 65-70%, biatrial enlargement and mild pulm HTN HTN DM type 2, insulin dependent (diagnosed in 1998). A1c was 7.0% in August, PVD Obesity Hypothyroidism Hyperlipidemia Osteopenia Intermittent hypercalcemia Charcot Osteomyelitis right foot - resolved Possible dementia - daughter reports worsening memory issues for the last 2 years 02/18/17-hospital admission Discussed with Oscar Pierce APRN - do not feel that postop antibiotics are needed prophylactically. Infected part of her foot/leg has been removed. No need at this time for ID consultation. Morphine pump for pain. Consult PT/OT. Mild normocytic anemia - monitor Hypercalcemia with Ca of 10.9 Telemetry due to history of a-fib. Continue metoprolol and nifedipine for rate control. Coumadin per pharmacy protocol. Lovenox to bridge until INR is therapeutic. Monitor blood sugars fasting and postprandial - continue oral diabetic meds and insulin. Lind is in place - DC WILLI. Pt is hesitant to DC because it is very difficult for her to use a bedpan since she can't lift herself up. Hopefully we will be able to DC [place] in 1-2 days. Discussed expectations and discharge plans with family: they are interested in SNF. Her mobility and functionality was limited prior to this surgery so they are unsure if she will be able engage in IRU requirements. Will consult CM for discharge planning. With noted memory issues, she is high risk for delirium. Discussed signs with family and nonpharmacological treatments. 02/19/17 Insulin Sliding scale was initiated due to some high blood sugars. Her home metformin dose was resumed as well. She has plans to go to [place] for rehabilitation, although family had questioned if she would be a candidate to have rehabilitation here. They have some concerns regarding her insurance coverage. Will have lead case manager discuss with family. 02/20/17 Incision right stump looks great. Fever likely atelectasis, I strongly encouraged her to be more aggressive with IS and getting out of bed. Will try to have PT help with transfer training. She would be more comfortable with her left prosthesis on when transferring to [facility]. Plan on DC Lind on Wednesday, giving her 2 days to get more comfortable with transfers Will decrease IVF. Appreciate hospitalist care of medical concerns 02/20/17 Fever overnight, urine, chest x-ray, and surgical wound (per nursing/surgical reports) unremarkable. Patient encouraged to use incentive spirometer regularly. Optimal that she be out of bed but physical therapy has not yet cleared her to safely transfer to chair. Encouraged patient to be upright in bed as much as possible. Continued mild drop in hemoglobin, asymptomatic. Monitor intermittently. Day 2 postop, preferable Lind be out-initiate bladder training. Blood sugars remain modestly elevated, Lantus increased to 15 units at bedtime. Check A1c. Continue warfarin-3 mg today. Continue Lovenox until INR therapeutic. Renal function stable. Pepcid converted to oral administration. 02/21/17 Intermittent fevers continue. MAXIMUM TEMPERATURE 101.3 in the last 24 hours. No fever since midnight. Chest x-ray surgical wound and urine were all negative for infection. Bladder retraining in process - likely DC Lind tomorrow. INR is still subtherapeutic at 1.28, will continue Lovenox Hemoglobin improved to 8.6. Pain fairly well controlled with oral narcotics. 02/22/17 09:51 POD #4 Right BKA incision and flap look good, no necrosis or infection. AGUSTIN Dc'd this morning. Continue with Xeroform strip over the noe then dry gauze and Tensoshape for mild to moderate compression. Pain controlled with [place]. Anticipate DC to [place] later today or more likely tomorrow. Would like to leave noe in at least 3 weeks, her tissues will not heal quickly. Follow up in Dr. Fontaine's office Mar 10 at2:30 pm 02/22/17 Overall, Mrs. Vasquez is doing well and anticipate discharge to [facility] tomorrow, 02/23/17. Xeroform gauze strips and single layer gauze to remain on right stump until 02/25 and then as needed. She has been cleared to shower beginning on 02/25 as long as her stump incision remains intact. NO tub or soaking of right stump. Continue to encourage mild to moderate compression to right stump, increasing compression as tolerated. Loving to be removed in approximately 3 weeks (on or around 03/11). Follow up with Dr. Fontaine in the [facility] office on 03/10 at 2:30pm. Review of vital signs reveals she has been afebrile today. Last documented fever was 9/10 at midnight at 101. Continue to monitor closely. Blood cultures remain negative after 2 days. UA was negative. WBC stable at 8.2. Persistent anemia with hemoglobin at 8.6. New thrombocytosis today with platelets at 428. Will continue to monitor blood counts and repeat CBC in AM. INR subtherapeutic today at 1.29. Continue with bridge therapy with Lovenox. Pharmacy to manage anticoagulation with coumadin. Repeat INR in AM. Continue to encourage incentive spirometry for pulmonary toileting. Skin break down noted to left stump secondary to ill-fitting prosthetic. Monitor skin closely for signs of infection. High-risk medications in use. Discussed with nursing who provide supplemental history. <Tomas Marrufo - Last Filed: 02/22/17 18:31> Objective Vital signs: Temperature 97.8 F 02/22/17 15:11 Pulse Rate 84 02/22/17 15:11 Respiratory Rate 16 02/22/17 15:11 Blood Pressure 134/67 02/22/17 15:11 Pulse Oximetry 98 02/22/17 15:11 Height/Weight/BMI: Height 1.7 m Weight 86 kg Body Mass Index 31.4 Results - Labs CBC & Chem 7: 02/22/17 06:06 02/22/17 06:06 Microbiology Results: Microbiology 02/20/17 00:19 Peripheral/Iv Start Blood Culture - Preliminary No Growth After 2 Days 02/20/17 00:14 Peripheral/Iv Start Blood Culture - Preliminary No Growth After 2 Days Assessment and Plan (1) Amputated below knee Current visit: Yes Status: Acute (2) Normocytic anemia Current visit: Yes Status: Acute Assessment and Plan: ASSESSMENT S/P Right leg BKA 02/18/[address] Fontaine for chronic diabetic foot ulcer and osteomyelitis. Atrial fibrillation, anticoagulated on coumadin. Echo 03/18/15 showed EF 65-70%, biatrial enlargement and mild pulm HTN HTN, chronic. DM type 2, insulin dependent (diagnosed in 1998). A1c was 7.0% in August,. chronic. PVD, chronic. Obesity, chronic. Hypothyroidism, chronic. Hyperlipidemia, chronic. Osteopenia, chronic. Intermittent hypercalcemia, per clinic notes. Prior workup included ionized calcium levels. Charcot, chronic. Osteomyelitis right foot - resolved. Possible dementia - daughter reports worsening memory issues for the last 2 years. Overweight with BMI 29.7 Have independently interviewed and examined pt. Chart reviewed. Case discussed with CM, Dr Fontaine, and my PA. Care plan developed with my supervision; agree with above. Doing well today. Notes some minimal pain to amputation-throbbing discomfort; feels Tylenol would be helpful. No nausea or ab pain; eating well. Breathing well. No chest pain. Lungs: clear bilaterally; no crackles wheezes or distress CV: regular Ab: soft nt/nd +BS MSE: awake alert appropriate Plan: Continue supportive post op care. Encourage activities. Continue wound care as per Dr Fontaine. Anticipate discharge to skilled care tomorrow. Hospital Course Summary Disclaimer: The visit summary below is not to be considered part of the above Progress Note.
[2017-02-22] MEDS ORDERED: WARFARIN 7.5 MG TABLET PO SCH (12:00)
--- NOTE | 2017-02-22 13:55 | Progress Note ---
DATE 02/22/2017 FINDINGS Mrs. Vasquez was in good spirits today. She was seen earlier today by my nurse practitioner. The patient denied much in the way of pain or discomfort. OBJECTIVE VITALS: Afebrile. Normotensive. EXTREMITIES: Patient had a Tensoshape overlying her right stump. AGUSTIN was removed earlier today. Incision was inspected earlier today and found to be clean, dry, and intact with no evidence for vascular compromise. ASSESSMENT 76-year-old female with multiple medical comorbidities, status post right below- the-knee amputation. Patient doing quite well. PLAN The patient reports to me that she is being discharged tomorrow to a nearby care facility for ongoing physical therapy and care. Postop visit will be set up for patient prior to her discharge. I am pleased with the patient's progress at this time. JUDI
[2017-02-22] MEDS: HYDROCODONE/APAP 5mg/325mg TABLET PO PRN (18:27)
[2017-02-22] MEDS: ATORVASTATIN 40 MG TABLET PO SCH (20:27)
[2017-02-22] MEDS: INSULIN GLARGINE 100unit/ml INJECTION SQ SCH (20:58)
[2017-02-22] MEDS: ACETAMINOPHEN 325 MG TABLET PO PRN (23:50)
[2017-02-23 04:03] VITALS: RESP 18; O2SAT 98
[2017-02-23] MEDS: LEVOTHYROXINE 88 MCG TABLET PO SCH (06:01)
--- NOTE | 2017-02-23 08:48 | Pharmacy Consult ---
Pharmacy Consult-Warfarin - Laboratory Information 02/18/17 02/19/17 02/20/17 09:13 04:31 04:54 INR 1.10 1.19 1.33 H 02/21/17 02/22/17 02/23/17 05:21 06:06 04:39 INR 1.28 H 1.29 H 1.50 H LS is a 76yo Fe admitted for stage IV diabetic pressure ulcer to the right later malleolus. Patient has undergone wound care for 15 months. Amputation right below the knee was performed on 02/18. Has hx of A. Fib. Warfarin home dose reported as 3 mg daily. Date INR Dose 02/18 1.10 No dose 02/19 1.19 3 mg 02/20 1.33 3 mg 02/21 1.29 6 mg 02/22 1.29 7.5 mg 02/23 1.50 Will repeat the Warfarin 7.5mg dose again today. Continue bridge with Enoxaparin 40mg SQ daily until INR is therapeutic. Thank you.
[2017-02-23] MEDS: METFORMIN 500 MG TABLET PO SCH ×2 (08:49→11:54)
[2017-02-23] MEDS: GLIMEPIRIDE 4 MG TABLET PO SCH (08:49)
[2017-02-23] MEDS: ENOXAPARIN 40 MG/0.4 ML INJECTION SQ SCH (08:49)
[2017-02-23] MEDS: FAMOTIDINE 20 MG TABLET PO SCH (08:50)
[2017-02-23] MEDS: CALCIUM 500 + VIT D 200 TABLET PO SCH (08:50)
--- NOTE | 2017-02-23 08:52 | General Surgery Progress Note ---
Subjective Patient reports: pain is less (was able to redress the right stump with Tensoshape with less discomfort this morning. ), tolerating a regular diet, voiding w/o difficulty (with assist) Narrative: Anticipate discharge to [place] today. Appointment is set for post op and probable staple removal Mar 10 in [place] OFFICE. - Vital Signs Last Vital Signs Temp 97.6 F 02/23/17 07:30 Pulse 70 02/23/17 07:30 Resp 18 02/23/17 07:30 BP 132/61 02/23/17 07:30 Pulse Ox 98 02/23/17 07:30 - Laboratory Result Diagrams: 02/23/17 04:40 02/23/17 04:40 - Microbiogy Microbiology 02/20/17 00:19 Peripheral/Iv Start Blood Culture - Preliminary No Growth After 3 Days 02/20/17 00:14 Peripheral/Iv Start Blood Culture - Preliminary No Growth After 3 Days - Normal Exam General: awake, alert, oriented Cardiovascular: regular rate Respiratory: equal bilaterally Abdominal: incision(s) (redressed today. Noe in tact. No drainage or necrosis.No sign of infection.) Assessment and Plan (1) Status post below knee amputation of right lower extremity Current Visit: Yes Status: Acute (2) Diabetes type 2, controlled Current Visit: Yes Status: Acute Qualifiers: Diabetes mellitus complication status: with other specified complication Diabetes mellitus petroleum terminal plant operator insulin use: with petroleum terminal plant operator use Qualified Code(s) : E11.69 - Type 2 diabetes mellitus with other specified complication; Z79.4 - MCFP (current) use of insulin (3) Postsurgical fever Current Visit: Yes Status: Acute Plan: Agree with discharge to [place] today. Appointment Mar 10 for staple removal in [facility]'s office. Continue with Tensoshape or similar compress on stump. Consult Discharger orders placed. Hospital Course Summary Disclaimer: The visit summary below is not to be considered part of the above Progress Note. Hospital Course: Date of admission: 02/18/17 ASSESSMENT S/P Right leg BKA 02/18/[address] Fontaine for chronic diabetic foot ulcer and osteomyelitis Hypercalcemia - hx of chronic intermittent per clinic notes. Prior workup included ionized calcium levels. Atrial fibrillation, anticoagulated on coumadin. Echo 03/18/15 showed EF 65-70%, biatrial enlargement and mild pulm HTN HTN DM type 2, insulin dependent (diagnosed in 1998). A1c was 7.0% in August, PVD Obesity Hypothyroidism Hyperlipidemia Osteopenia Intermittent hypercalcemia Charcot Osteomyelitis right foot - resolved Possible dementia - daughter reports worsening memory issues for the last 2 years 02/18/17-hospital admission Discussed with Oscar Pierce APRN - do not feel that postop antibiotics are needed prophylactically. Infected part of her foot/leg has been removed. No need at this time for ID consultation. Morphine pump for pain. Consult PT/OT. Mild normocytic anemia - monitor Hypercalcemia with Ca of 10.9 Telemetry due to history of a-fib. Continue metoprolol and nifedipine for rate control. Coumadin per pharmacy protocol. Lovenox to bridge until INR is therapeutic. Monitor blood sugars fasting and postprandial - continue oral diabetic meds and insulin. Lind is in place - DC WILLI. Pt is hesitant to DC because it is very difficult for her to use a bedpan since she can't lift herself up. Hopefully we will be able to DC Lind in 1-2 days. Discussed expectations and discharge plans with family: they are interested in SNF. Her mobility and functionality was limited prior to this surgery so they are unsure if she will be able engage in IRU requirements. Will consult CM for discharge planning. With noted memory issues, she is high risk for delirium. Discussed signs with family and nonpharmacological treatments. 02/19/17 Insulin Sliding scale was initiated due to some high blood sugars. Her home metformin dose was resumed as well. She has plans to go to [place] for rehabilitation, although family had questioned if she would be a candidate to have rehabilitation here. They have some concerns regarding her insurance coverage. Will have medical case manager discuss with family. 02/20/17 Incision right stump looks great. Fever likely atelectasis, I strongly encouraged her to be more aggressive with IS and getting out of bed. Will try to have PT help with transfer training. She would be more comfortable with her left prosthesis on when transferring to [facility]. Plan on DC Lind on Wednesday, giving her 2 days to get more comfortable with transfers Will decrease IVF. Appreciate hospitalist care of medical concerns 02/20/17 Fever overnight, urine, chest x-ray, and surgical wound (per nursing/surgical reports) unremarkable. Patient encouraged to use incentive spirometer regularly. Optimal that she be out of bed but physical therapy has not yet cleared her to safely transfer to chair. Encouraged patient to be upright in bed as much as possible. Continued mild drop in hemoglobin, asymptomatic. Monitor intermittently. Day 2 postop, preferable Lind be out-initiate bladder training. Blood sugars remain modestly elevated, Lantus increased to 15 units at bedtime. Check A1c. Continue warfarin-3 mg today. Continue Lovenox until INR therapeutic. Renal function stable. Pepcid converted to oral administration. 02/21/17 Intermittent fevers continue. MAXIMUM TEMPERATURE 101.3 in the last 24 hours. No fever since midnight. Chest x-ray surgical wound and urine were all negative for infection. Bladder retraining in process - likely DC Lind tomorrow. INR is still subtherapeutic at 1.28, will continue Lovenox Hemoglobin improved to 8.6. Pain fairly well controlled with oral narcotics. 02/22/17 09:51 POD #4 Right BKA incision and flap look good, no necrosis or infection. AGUSTIN Dc'd this morning. Continue with Xeroform strip over the noe then dry gauze and Tensoshape for mild to moderate compression. Pain controlled with [place]. Anticipate DC to [place] later today or more likely tomorrow. Would like to leave noe in at least 3 weeks, her tissues will not heal quickly. Follow up in Dr. Fontaine's office Mar 10 at2:30 pm 02/22/17 Overall, Mrs. Vasquez is doing well and anticipate discharge to [facility] tomorrow, 02/23/17. Xeroform gauze strips and single layer gauze to remain on right stump until 02/25 and then as needed. She has been cleared to shower beginning on 02/25 as long as her stump incision remains intact. NO tub or soaking of right stump. Continue to encourage mild to moderate compression to right stump, increasing compression as tolerated. Cowley to be removed in approximately 3 weeks (on or around 03/11). Follow up with Dr. Fontaine in the [facility] office on 03/10 at 2:30pm. Review of vital signs reveals she has been afebrile today. Last documented fever was 02/21 at midnight at 101. Continue to monitor closely. Blood cultures remain negative after 2 days. UA was negative. WBC stable at 8.2. Persistent anemia with hemoglobin at 8.6. New thrombocytosis today with platelets at 428. Will continue to monitor blood counts and repeat CBC in AM. INR subtherapeutic today at 1.29. Continue with bridge therapy with Lovenox. Pharmacy to manage anticoagulation with coumadin. Repeat INR in AM. Continue to encourage incentive spirometry for pulmonary toileting. Skin break down noted to left stump secondary to ill-fitting prosthetic. Monitor skin closely for signs of infection. High-risk medications in use. Discussed with nursing who provide supplemental history. Sepsis Assessment - Evaluation Sepsis screening result: No Definite Risk
[2017-02-23] MEDS: INSULIN ASPART 100unit/ml INJECTION SQ PRN (10:08)
--- NOTE | 2017-02-23 10:52 | Progress Note ---
Subjective: F/U: BKA, Type II DM Doing well this am. Pain controlled. No f/c. Breathing well. No chest pain. Denies nausea or ab pain. Bowel moving. Objective Vital signs: Temperature 97.6 F 02/23/17 07:30 Pulse Rate 70 02/23/17 07:30 Respiratory Rate 18 02/23/17 07:30 Blood Pressure 132/61 02/23/17 07:30 Pulse Oximetry 98 02/23/17 07:30 Rhythm: Normal Sinus Rhythm Height/Weight/BMI: Height 1.7 m Weight 83.2 kg Body Mass Index 31.4 - Constitutional Present: no acute distress, well nourished, well developed, cooperative - Routine HEENT Exam Head: Present: normocephalic, atraumatic Eye: Present: EOMI, PERRL ENT: Present: mucous membranes moist - Routine Respiratory Exam Present: CTA bilaterally. Absent: respiratory distress, wheezes, crackles - Routine Cardiovascular Exam Present: RRR, no murmur - Routine Abdominal Exam Present: soft, normoactive bowel sounds, non distended, non tender - Routine Extremities Exam Present: no edema, pulses intact. Absent: cyanosis, clubbing - Routine Musculoskeletal Exam Musculoskeletal: Present: no clubbing or cyanosis, normal strength - Routine Skin Exam Present: dry, warm - Routine Neurological Exam Present: alert, CN II-XII intact, moving all extremities, vision grossly intact , hearing grossly intact. Absent: motor deficit - Routine Psychiatric Exam Present: normal affect, cooperative. Absent: anxious, agitated Results - Labs CBC & Chem 7: 02/23/17 04:40 02/23/17 04:40 Microbiology Results: Microbiology 02/20/17 00:19 Peripheral/Iv Start Blood Culture - Preliminary No Growth After 3 Days 02/20/17 00:14 Peripheral/Iv Start Blood Culture - Preliminary No Growth After 3 Days Assessment and Plan (1) Amputated below knee Current visit: Yes Status: Acute (2) Normocytic anemia Current visit: Yes Status: Acute DVT Prophylaxis: Lovenox, Coumadin Resuscitation Status: Do Not Resuscitate Assessment and Plan: ASSESSMENT S/P Right leg BKA 02/18/[address] Fontaine for chronic diabetic foot ulcer and osteomyelitis. Atrial fibrillation, anticoagulated on coumadin. Echo 03/18/15 showed EF 65-70%, biatrial enlargement and mild pulm HTN HTN, chronic. DM type 2, insulin dependent (diagnosed in 1998). A1c was 7.0% in August,. chronic. PVD, chronic. Obesity, chronic. Hypothyroidism, chronic. Hyperlipidemia, chronic. Osteopenia, chronic. Intermittent hypercalcemia, per clinic notes. Prior workup included ionized calcium levels. Charcot, chronic. Osteomyelitis right foot - resolved. Possible dementia - daughter reports worsening memory issues for the last 2 years. Plan [facility] d/c to [facility] for [facility] of skilled care. Home nifedipine, irbesartan and spironolactone not restarted this hospitalization. Will restart irbesartan at 150mg (previously on 300) - BP in 130's without medication. Hold on restarting spironolactone as potassium running upper limits of normal. Hold on restarting nifedipine, as likely BP will do well on irbesartan. INR subtherapeutic - has been getting 7.5mg past 2 days. Will continue home 3mg Coumadin and check in 1 week. Continue wound care as per wound team and Dr Fontaine. F/U with Dr Liza Wellington in 1 week for medical reevaluation. F/U with Dr Fontaine in his clinic on Mar 10. See orders for details. Case discussed with CM. Time spent with patient care and discharge greater than 35 minutes. - Time spent with patient discharge greater than 30 minutes Sepsis Assessment - Evaluation Sepsis screening result: No Definite Risk Hospital Course Summary Disclaimer: The visit summary below is not to be considered part of the above Progress Note. Hospital Course: Date of admission: 02/18/17 ASSESSMENT S/P Right leg BKA 02/18/[address] Fontaine for chronic diabetic foot ulcer and osteomyelitis Hypercalcemia - hx of chronic intermittent per clinic notes. Prior workup included ionized calcium levels. Atrial fibrillation, anticoagulated on coumadin. Echo 03/18/15 showed EF 65-70%, biatrial enlargement and mild pulm HTN HTN DM type 2, insulin dependent (diagnosed in 1998). A1c was 7.0% in August, PVD Obesity Hypothyroidism Hyperlipidemia Osteopenia Intermittent hypercalcemia Charcot Osteomyelitis right foot - resolved Possible dementia - daughter reports worsening memory issues for the last 2 years 02/18/17-hospital admission Discussed with Oscar Pierce VOICE DATA COMMUNICATIONS ENGINEER - do not feel that postop antibiotics are needed prophylactically. Infected part of her foot/leg has been removed. No need at this time for ID consultation. Morphine pump for pain. Consult PT/OT. Mild normocytic anemia - monitor Hypercalcemia with Ca of 10.9 Telemetry due to history of a-fib. Continue metoprolol and nifedipine for rate control. Coumadin per pharmacy protocol. Lovenox to bridge until INR is therapeutic. Monitor blood sugars fasting and postprandial - continue oral diabetic meds and insulin. Lind is in place - DC WILLI. Pt is hesitant to DC because it is very difficult for her to use a bedpan since she can't lift herself up. Hopefully we will be able to DC Lind in 1-2 days. Discussed expectations and discharge plans with family: they are interested in SNF. Her mobility and functionality was limited prior to this surgery so they are unsure if she will be able engage in IRU requirements. Will consult CM for discharge planning. With noted memory issues, she is high risk for delirium. Discussed signs with family and nonpharmacological treatments. 02/19/17 Insulin Sliding scale was initiated due to some high blood sugars. Her home metformin dose was resumed as well. She has plans to go to [place] for rehabilitation, although family had questioned if she would be a candidate to have rehabilitation here. They have some concerns regarding her insurance coverage. Will have rn case manager discuss with family. 02/20/17 Incision right stump looks great. Fever likely atelectasis, I strongly encouraged her to be more aggressive with IS and getting out of bed. Will try to have PT help with transfer training. She would be more comfortable with her left prosthesis on when transferring to [facility]. Plan on DC Lind on Wednesday, giving her 2 days to get more comfortable with transfers Will decrease IVF. Appreciate hospitalist care of medical concerns 02/20/17 Fever overnight, urine, chest x-ray, and surgical wound (per nursing/surgical reports) unremarkable. Patient encouraged to use incentive spirometer regularly. Optimal that she be out of bed but physical therapy has not yet cleared her to safely transfer to chair. Encouraged patient to be upright in bed as much as possible. Continued mild drop in hemoglobin, asymptomatic. Monitor intermittently. Day 2 postop, preferable Lind be out-initiate bladder training. Blood sugars remain modestly elevated, Lantus increased to 15 units at bedtime. Check A1c. Continue warfarin-3 mg today. Continue Lovenox until INR therapeutic. Renal function stable. Pepcid converted to oral administration. 02/21/17 Intermittent fevers continue. MAXIMUM TEMPERATURE 101.3 in the last 24 hours. No fever since midnight. Chest x-ray surgical wound and urine were all negative for infection. Bladder retraining in process - likely DC Lind tomorrow. INR is still subtherapeutic at 1.28, will continue Lovenox Hemoglobin improved to 8.6. Pain fairly well controlled with oral narcotics. 02/22/17 POD #4 Right BKA incision and flap look good, no necrosis or infection. AGUSTIN Dc'd this morning. Continue with Xeroform strip over the [place]hoana then dry gauze and [place] for mild to moderate compression. Pain controlled with [place]. Anticipate DC to [place] later today or more likely tomorrow. Would like to leave [place] in at least 3 weeks, her tissues will not heal quickly. Follow up in Dr. Fontaine's office Mar 10 at2:30 pm 02/22/17 Overall, Mrs. Vasquez is doing well and anticipate discharge to [facility] tomorrow, 02/23/17. Xeroform gauze strips and single layer gauze to remain on right stump until 02/25 and then as needed. She has been cleared to shower beginning on 02/25 as long as her stump incision remains intact. NO tub or soaking of right stump. Continue to encourage mild to moderate compression to right stump, increasing compression as tolerated. [place] to be removed in approximately 3 weeks (on or around 03/11). Follow up with Dr. Fontaine in the [facility] office on 03/10 at 2:30pm. Review of vital signs reveals she has been afebrile today. Last documented fever was 02/21 at midnight at 101. Continue to monitor closely. Blood cultures remain negative after 2 days. UA was negative. WBC stable at 8.2. Persistent anemia with hemoglobin at 8.6. New thrombocytosis today with platelets at 428. Will continue to monitor blood counts and repeat CBC in AM. INR subtherapeutic today at 1.29. Continue with bridge therapy with Lovenox. Pharmacy to manage anticoagulation with coumadin. Repeat INR in AM. Continue to encourage incentive spirometry for pulmonary toileting. Skin break down noted to left stump secondary to ill-fitting prosthetic. Monitor skin closely for signs of infection. High-risk medications in use. Discussed with nursing who provide supplemental history. 02/23/17 [facility] d/c to [facility] for [facility] of skilled care. Home nifedipine, irbesartan and spironolactone not restarted this hospitalization. Will restart irbesartan at 150mg (previously on 300) - BP in 130's without medication. Hold on restarting spironolactone as potassium running upper limits of normal. Hold on restarting nifedipine, as likely BP will do well on irbesartan. INR subtherapeutic - has been getting 7.5mg past 2 days. Will continue home 3mg Coumadin and check in 1 week. Continue wound care as per wound team and Dr Fontaine. F/U with Dr Liza Wellington in 1 week for medical reevaluation. F/U with Dr Fontaine in his clinic on Mar 10. See orders for details.
[2017-02-23 11:13] VITALS: BP 131/53; PULSE 78; TEMP 98.4
--- NOTE | 2017-02-23 11:16 | Discharge Summary ---
Discharge Information Date of admission: 02/18/17 08:36 Anticipated date of discharge: 02/23/17 Attending Physician: Magdalena Kent MD Primary care physician: Liza Wellington Consults: Dr Fontaine - surgery - Discharge Diagnosis (1) Amputated below knee Status: Acute Discharge Diagnosis: Chronic diabetic foot ulcer and osteomyelitis. (2) Normocytic anemia Status: Acute Discharge Diagnosis: Discharge diagnosis: Chronic diabetic foot ulcer and osteomyelitis. S/P Right leg BKA 02/18/[address] Fontaine Associated conditions and complications: Atrial fibrillation, anticoagulated on coumadin. Echo 03/18/15 showed EF 65-70%, biatrial enlargement and mild pulm HTN HTN, chronic. DM type 2, insulin dependent (diagnosed in 1998). A1c was 7.0% in August,. chronic. PVD, chronic. Obesity, chronic. Hypothyroidism, chronic. Hyperlipidemia, chronic. Osteopenia, chronic. Intermittent hypercalcemia, per clinic notes. Prior workup included ionized calcium levels. Charcot, chronic. Osteomyelitis right foot - resolved. Possible dementia - daughter reports worsening memory issues for the last 2 years. - Procedures Procedures: DATE OF SERVICE: 02/18/2017 SURGEON: Saman Fontaine MD PREOPERATIVE DIAGNOSIS: Refractory osteomyelitis involving right foot, nonhealing right diabetic foot ulcers. POSTOPERATIVE DIAGNOSIS: Refractory osteomyelitis involving right foot, nonhealing right diabetic foot ulcers. PROCEDURE : Right [id number] amputation. - Laboratory Labs: Admit Lab 02/18/17 09:13 WBC 10.1 Hgb 11.1 L Hct 34.4 L MCV 89.4 Plt Count 391 Neut % (Auto) 66.4 H Lymph % (Auto) 22.1 L Admit Lab 02/18/17 09:13 Sodium 142 Potassium 4.9 Chloride 105 Carbon Dioxide 24 BUN 21.0 H Creatinine 1.0 GFR Calculation 54 Glucose 172 H Calculated Osmolality 280 Calcium 10.9 H Laboratory Tests 02/21/17 05:21 Hemoglobin A1c 6.4 02/23/17 04:40 02/23/17 04:40 - Microbiology Microbiology 02/20/17 00:19 Peripheral/Iv Start Blood Culture - Preliminary No Growth After 3 Days 02/20/17 00:14 Peripheral/Iv Start Blood Culture - Preliminary No Growth After 3 Days - Radiology Radiology: Date of Exam: 02/20/17 PROCEDURE: XR chest 1V FINDINGS: The lungs are clear. There is no abnormal airspace opacity, pleural effusion or pneumothorax identified. The heart size, pulmonary vasculature and mediastinum are within normal limits. No significant skeletal abnormality is seen. IMPRESSION: No acute cardiopulmonary abnormality. History of Present Illness HPI: Dulce Maria Vasquez is a 76 year old woman who has been undergoing wound care for for a stage IV diabetic pressure ulcer to the right lateral malleolus for about 15 months. She also had right plantar midfoot and right dorsal midfoot wounds. She has been on and off antibiotics and wound vac. She went through hyperbaric therapy. Nutritional recommendations were also made, and she improved in this regard. However, the wound worsened and MRI showed progressive osteomyelitis. Right [id number]-rhu-[id number] amputation was recommended and she underwent this procedure on 02/18/[address] Fontaine. She was seen postoperatively, awake and alert, oriented x3. She reports being in her usual state of health, and denies any recent illnesses such as fever or chills, body aches, nausea or vomiting, weakness or dizziness, neuro symptoms, abdominal pain, nausea or vomiting. During her last round of antibiotics she developed diarrhea, but this improved when she started taking probiotics. She reports chronic urinary frequency but denies dysuria. She denies any chest pain/ pressure, dyspnea, or palpitations. She has a right BKA and uses a prosthetic. Per family, Dr. Fontaine removed the LLE at the same level as the Right BKA. Immediately postop, she also is feeling well with stable vital signs. For complete details of the H&P refer to that document. Objective Vital signs: Temperature 97.6 F 02/23/17 07:30 Pulse Rate 70 02/23/17 07:30 Respiratory Rate 18 02/23/17 07:30 Blood Pressure 132/61 02/23/17 07:30 Pulse Oximetry 98 02/23/17 07:30 Rhythm: Normal Sinus Rhythm Height/Weight/BMI: Height 1.7 m Weight 83.2 kg Body Mass Index 31.4 Hospital Course This is a general summary of the patient's hospital course. For more details refer to the complete medical record. Hospital course: Date of admission: 02/18/17 ASSESSMENT S/P Right leg BKA 02/18/[address] Fontaine for chronic diabetic foot ulcer and osteomyelitis Hypercalcemia - hx of chronic intermittent per clinic notes. Prior workup included ionized calcium levels. Atrial fibrillation, anticoagulated on coumadin. Echo 03/18/15 showed EF 65-70%, biatrial enlargement and mild pulm HTN HTN DM type 2, insulin dependent (diagnosed in 1998). A1c was 7.0% in August, PVD Obesity Hypothyroidism Hyperlipidemia Osteopenia Intermittent hypercalcemia Charcot Osteomyelitis right foot - resolved Possible dementia - daughter reports worsening memory issues for the last 2 years 02/18/17-hospital admission Discussed with Oscar Pierce APRN - do not feel that postop antibiotics are needed prophylactically. Infected part of her foot/leg has been removed. No need at this time for ID consultation. Morphine pump for pain. Consult PT/OT. Mild normocytic anemia - monitor Hypercalcemia with Ca of 10.9 Telemetry due to history of a-fib. Continue metoprolol and nifedipine for rate control. Coumadin per pharmacy protocol. Lovenox to bridge until INR is therapeutic. Monitor blood sugars fasting and postprandial - continue oral diabetic meds and insulin. Lind is in place - DC WILLI. Pt is hesitant to DC because it is very difficult for her to use a bedpan since she can't lift herself up. Hopefully we will be able to DC Lind in 1-2 days. Discussed expectations and discharge plans with family: they are interested in SNF. Her mobility and functionality was limited prior to this surgery so they are unsure if she will be able engage in IRU requirements. Will consult CM for discharge planning. With noted memory issues, she is high risk for delirium. Discussed signs with family and nonpharmacological treatments. 02/19/17 Insulin Sliding scale was initiated due to some high blood sugars. Her home metformin dose was resumed as well. She has plans to go to [place] for rehabilitation, although family had questioned if she would be a candidate to have rehabilitation here. They have some concerns regarding her insurance coverage. Will have manager case management discuss with family. 02/20/17 Incision right stump looks great. Fever likely atelectasis, I strongly encouraged her to be more aggressive with IS and getting out of bed. Will try to have PT help with transfer training. She would be more comfortable with her left prosthesis on when transferring to [facility]. Plan on DC Lind on Wednesday, giving her 2 days to get more comfortable with transfers Will decrease IVF. Appreciate hospitalist care of medical concerns 02/20/17 Fever overnight, urine, chest x-ray, and surgical wound (per nursing/surgical reports) unremarkable. Patient encouraged to use incentive spirometer regularly. Optimal that she be out of bed but physical therapy has not yet cleared her to safely transfer to chair. Encouraged patient to be upright in bed as much as possible. Continued mild drop in hemoglobin, asymptomatic. Monitor intermittently. Day 2 postop, preferable Lind be out-initiate bladder training. Blood sugars remain modestly elevated, Lantus increased to 15 units at bedtime. Check A1c. Continue warfarin-3 mg today. Continue Lovenox until INR therapeutic. Renal function stable. Pepcid converted to oral administration. 02/21/17 Intermittent fevers continue. MAXIMUM TEMPERATURE 101.3 in the last 24 hours. No fever since midnight. Chest x-ray surgical wound and urine were all negative for infection. Bladder retraining in process - likely DC Lind tomorrow. INR is still subtherapeutic at 1.28, will continue Lovenox Hemoglobin improved to 8.6. Pain fairly well controlled with oral narcotics. 02/22/17 POD #4 Right BKA incision and flap look good, no necrosis or infection. AGUSTIN Dc'd this morning. Continue with Xeroform strip over the noe then dry gauze and [place] for mild to moderate compression. Pain controlled with [place]. Anticipate DC to [place] later today or more likely tomorrow. Would like to leave noe in at least 3 weeks, her tissues will not heal quickly. Follow up in Dr. Fontaine's office Mar 10 at2:30 pm 02/22/17 Overall, Mrs. Vasquez is doing well and anticipate discharge to [facility] tomorrow, 02/23/17. Xeroform gauze strips and single layer gauze to remain on right stump until 02/25 and then as needed. She has been cleared to shower beginning on 02/25 as long as her stump incision remains intact. NO tub or soaking of right stump. Continue to encourage mild to moderate compression to right stump, increasing compression as tolerated. [place] to be removed in approximately 3 weeks (on or around 03/11). Follow up with Dr. Fontaine in the [facility] office on 03/10 at 2:30pm. Review of vital signs reveals she has been afebrile today. Last documented fever was 9/10 at midnight at 101. Continue to monitor closely. Blood cultures remain negative after 2 days. UA was negative. WBC stable at 8.2. Persistent anemia with hemoglobin at 8.6. New thrombocytosis today with platelets at 428. Will continue to monitor blood counts and repeat CBC in AM. INR subtherapeutic today at 1.29. Continue with bridge therapy with Lovenox. Pharmacy to manage anticoagulation with coumadin. Repeat INR in AM. Continue to encourage incentive spirometry for pulmonary toileting. Skin break down noted to left stump secondary to ill-fitting prosthetic. Monitor skin closely for signs of infection. High-risk medications in use. Discussed with nursing who provide supplemental history. 02/23/17 Will d/c to [facility] for [facility] of skilled care. Home nifedipine, irbesartan and spironolactone not restarted this hospitalization. Will restart irbesartan at 150mg (previously on 300) - BP in 130's without medication. Hold on restarting spironolactone as potassium running upper limits of normal. Hold on restarting nifedipine, as likely BP will do well on irbesartan. INR subtherapeutic - has been getting 7.5mg past 2 days. Will continue home 3mg Coumadin and check in 1 week. Continue wound care as per wound team and Dr Fontaine. F/U with Dr Liza Wellington in 1 week for medical reevaluation. F/U with Dr Fontaine in his clinic on Mar 10. See orders for details. Time spent with patient: discharge greater than 30 minutes DVT Prophylaxis: Coumadin Discharge Plan - Med Rec/Dispo Referrals/Follow Up: Saman Fontaine MD [Physician] - 03/10/17 2:30 pm (at his [facility] office ( not wound clinic)) Liza Wellington [Family Provider] - 1 Week (Hospital f/u: R BKA. HTN and DM. ) Additional Instructions: Xeroform gauze strip and single layer gauze to stump incision through Feb 25. Then dressings as needed. May start to shower 02-25-2017 if incision remains in tact, no tub or soaking the stump. Mild to moderate compression on right stump, can gradually increase as the stump heals and becomes less tender. Prescriptions: New Insulin Glargine,Hum.rec.anlog [Lantus] 15 unit SQ HS vial Irbesartan [Avapro] 150 mg PO DAILY #30 tab Senna + Docusate [Senna Plus Tablet] 1 tab PO BID PRN tablet PRN Reason: Constipation Hydrocodone/APAP 5/325 [[place] 5/325] 1 - 2 tab PO Q5H PRN #30 tab PRN Reason: Pain Milk of Magnesia [Mom] 30 ml PO DAILY PRN udc PRN Reason: Constipation Continue Warfarin Sodium [Coumadin] 3 mg PO DAILY Metoprolol Tartrate [Lopressor] 12.5 mg PO WB Metformin [Glucophage] 500 mg PO TID Levothyroxine Tab [Synthroid] 88 mcg PO ACB Calcium 500 + D [Os [place]-D 500] 1 tab PO BID Acetaminophen [Non-Aspirin Pain Relief] 500 mg PO Q4-6HPRN PRN PRN Reason: Pain Atorvastatin [Lipitor] 80 mg PO DAILY Glimepiride [Amaryl] 4 mg PO DAILY Multivitamin [Multivitamins] 1 each PO DAILY Discontinued Spironolactone [Aldactone] 100 mg PO DAILY NIFEdipine [Nifedipine ER] 1 tab PO DAILY Irbesartan [Avapro] 1 tab PO DAILY Insulin Glargine [Lantus] 10 units SQ HS Discharge Instructions/Outpatient Orders: Final Provider Discharge Instructions Location: Determined By Patient - Disposition 03 To SNU Not [facility] (SNF) - Attestation Attestation Narrative: 02/23/17 11:35 I have independently and examined patient prior to discharge. See my progress note from today for details. Patient medically stable for discharge to IRU.
--- NOTE | 2017-02-23 11:41 | Extended Care Facility Orders ---
Admission Orders Admit to:: Long-Term Allergies/Adverse Reactions: Allergies Penicillins Allergy (Mild, Verified 02/18/17 09:14) BLISTERS Iodinated Contrast- Oral and IV Dye Allergy (Unknown, Verified 02/18/17 09:14) Sneezing Sulfa (Sulfonamide Antibiotics) Allergy (Unknown, Verified 02/18/17 09:14) HIVES doxycycline Adverse Reaction (Verified 02/18/17 09:14) Nausea and Vomiting Admitting Diagnosis: Right BKA S91.301D L89.514 Admitting Physician: Dr Marrufo Attending Physician: dr Liza Wellington Code Status: Do Not Resuscitate Anticiapted Length of Stay: 30 days or less Rehab Potential: fair Rehab Prognosis: fair Diet: No added salt. No concentrated sweets Wound/Incision Care: Xeroform gauze strip and single layer gauze to stump incision through Feb 25. Then dressings as needed. May start to shower 2016 if incision remains in tact, no tub or soaking the stump. Mild to moderate compression on right stump, can gradually increase as the stump heals and becomes less tender. May use Facility Protocol or Standing Orders: Yes May have flu vaccine: Yes Evaluations/Treatment: PT, OT Long-Term Certification: I certify that SNF services are required to be given on an Inpatient basis because of the patients need for fci care on a continuing basis for the condition(s) for which he/she received inpatient hospital services prior to his/her transfer to the SNF. SNF inpatient care is necessary for the following reasons Indication for Long-Term: Wound Care/Assessment, Diabetic Assessment, Med Admininistration, Postop Assessment Care, Diabetic Education, Teach Diabetes Mellitus Management - Additional Information In Event of Arrest: Do Not Start CPR Resident is Aware of Diagnosis: Yes Referrals: Saman Fontaine MD [Physician] - 03/10/17 2:30 pm (at his [facility] office ( not wound clinic)) Liza Wellington [Family Provider] - 1 Week (Hospital f/u: R BKA. HTN and DM. ) Additional Orders: F/U with Dr Milton Wellington in 1 week. F/U with Dr Fontaine on 03/10. F/U with Wound teams as they recommend. BMP in 1 week - Dx: HTN, Medication use. INR in 1 week - Dx: Afib, Coumadin use. CBC in 1 week - Dx: Anemia. Accucheck ac meals, q HS and prn. IS every 2 hours while awake.
[2017-02-23] MEDS ORDERED: WARFARIN 7.5 MG TABLET PO SCH (12:00)
[2017-02-23] MEDS: ACETAMINOPHEN 325 MG TABLET PO PRN (14:20)
== END 2017-02-23 15:35 | DRG 475 ==
LOC: SRG 08:36
PROVIDERS: ADMIT Surgery; ATTEND Internal Medicine

== ENCOUNTER 2017-05-18 12:27 | Inpatient (IN) ==
--- OUTSIDE RECORDS SUMMARY | 2017-05-18 12:37 | External Medical Summary | Clinical Summary ---
:1940 Author Organization [facility] Address [address] [place] [address] Phone Care Team Providers Name Role Phone Unavailable Primary Care Provider Unavailable Source Comments Some departments are not documenting in the electronic medical record. If you do not see the information that you expected, contact Release of Information in the Health Information Management department at [phone] for further assistance in locating additional records.[facility] Allergies Active Allergy Reactions Severity Noted [...] SCREENING 09/24/2003 PREVNAR/PNEUMOVAX (#1) 09/24/2003 INFLUENZA VACCINE 01/12/2017
[2017-05-18] MEDS ORDERED: ACETAMINOPHEN 500 MG TABLET PO PRN (13:27)
[2017-05-18] MEDS ORDERED: SENNA + DOCUSATE TABLET PO PRN (13:27)
[2017-05-18] MEDS ORDERED: HYDROCODONE/APAP 5mg/325mg TABLET PO PRN (13:29)
[2017-05-18] MEDS ORDERED: WARFARIN - PHARMACY CONSULT MC ONE (13:54)
--- NOTE | 2017-05-18 14:04 | IRU History & Physical Report ---
[facility] Date: 356 Chief complaint: I need to learn how to walk again HPI: Ms. Vasquez is a 76-year-old female referred by Dr. Liza Wellington who is also her primary care physician. The patient has a history of previous left cfgyx-jvr-llze amputation in 2004. She has been wearing a prosthesis on that side for some time. However she has experienced weight loss and requires a new prosthesis. 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 That has been treated with a number of interventions over the last 15 months. She has been on and off antibiotics, has had several procedures done as well as a wound VAC as well as hyperbaric oxygen. Nothing seemed to be effective in allowing the wound to heal and for this reason she underwent right below the knee amputation on 02/18/[address] Fontaine. She tolerated the procedure well. Postoperatively she was sent to [facility] for skilled care including physical therapy and occupational therapy. She has been at that location since the surgery, although skilled PT and OT had been discontinued over the last 30 days. At the present time she has now received bilateral new prostheses and requires PT and OT as well as a coordinated medical supervision approach to regaining her strength and allowing her to ambulate and transfer safely. After the initial left ucyln-sqe-gxzn amputation in 2004 she developed several blisters with the use of the prosthesis at that time. However that ultimately did resolve. Most recently after the right dzudl-yza-iecd amputation she did develop quite a bit of pain in the stump. Dr. Fontaine removed some stitches in his office and they have been working on wound healing since that time at [facility] with a silver impregnated dressing. She states that that wound has finally healed. She denies any fever. Denies any chills or night sweats. Her appetite is good. The patient does have history of diabetes mellitus since 1998. She has been on insulin as well as oral agents. At home she takes Lantus 10 units at bedtime daily. At [facility] she was on 15 units at bedtime daily. Most recent A1c that she recalls was around 6.3% in the last month or two. She reports that her appetite is good. At home she checks her blood sugars once daily. At [facility] she was checking them every Wednesday and Wednesday 4 times on those days. She does not have history of significant hypoglycemic reactions she states. The patient is on warfarin for atrial fibrillation, chronic. She is on 7 mg daily. I do not have a copy of her most recent INR. We'll ask pharmacy to monitor and dose this. Mention is made on previous history and physical of echocardiogram demonstrating ejection fraction 65% along with mild pulmonary hypertension. At home she lives with her in their own home. She does use a quad cane at home for the past couple of years. She has had at least one fall. She has 2 steps to get up into her home. We did discuss resuscitation with the patient. She initially stated that she did not want any resuscitation. She then modified that state that she did not want to be intubated nor "on a machine" long-term. She is okay with short-term CPR but no intubation. Level of functioning prior to the current event is as follows: She was independent for bathing, upper body dressing and modified independent for lower body dressing, toileting, bed/chair/wheelchair transfers, toilet transfers and walking. She was modified independent for stairs. She could walk 500 feet prior to this. Current level of functioning is as follows: She requires minimum assistance for bathing, supervision level for upper body dressing, moderate assistance for lower body dressing, toileting, bed/chair/wheelchair transfers and modified independent for wheelchair. She is unable to walk prior to the acquisition of her new prostheses which have come today. The following medical conditions are noted and require active monitoring and/or management: 1. DM II on oil heaterman insulin: She is at risk for hyperglycemia or hypoglycemia in view of the varying work requirements involved with rehabilitation. She will be monitored carefully with regard to her blood sugars. 2. Atrial fibrillation: She is on warfarin. She will be monitored with regard to bleeding risk and to avoid risk of falls. Pharmacy will be involved in dosing warfarin and monitoring her INR. 3. Difficulty with pressure sores after the previous obidx-jxi-kmsw amputation as well as recent wound healing. She will be monitored carefully with regard to the wounds. The following therapies will be needed: 1. Physical therapy: for transfers and ambulation and stairs. 2. Occupational therapy: for ADL's and transfers. 3. Dietitian: In view of her diabetes. 4. Medical management: for the above conditions. 5. 24 hour Rehabilitation Nursing to monitor and address the following: Blood sugars, reduce fall risk, monitoring for bleeding, wound care. [facility] Patient Stated Medical History Cataracts Yes Cardiac Arrhythmia Yes: Afib Hypertension Yes Asthma No Bronchitis No Chronic Obstructive Pulmonary No Disease (COPD) Pneumonia No Pulmonary Edema No Pulmonary Embolism No Sleep Apnea No Tuberculosis No Other Respiratory No Diabetes Mellitus Type 1 Yes Diabetes Mellitus Type 2 Yes Gastroesophageal Reflux Yes Disease Hx Renal Disease No Clotting Problems Yes: WARFARIN Other Musculoskeletal Yes: Right leg wound MRSA Yes Other Infectious Yes: OSTEOMYELITIS R ANKLE Anesthesia Reactions No Blood Transfusions No Chemotherapy No Malignant Hyperthermia No Other No Post Menopausal Yes Now No Clinic Medical History Normocytic anemia (Acute Medical) Hypercalcemia (Acute Medical) Diabetes type 2, controlled (Acute Medical) Postsurgical fever (Acute Medical) Medical History Updates: 1. Atrial fibrillation, apparently chronic. 2. Hypertension. 3. Diabetes mellitus on long-term insulin therapy. 4. Atherosclerotic peripheral vascular disease. 5. History of obesity. 6. Hypothyroidism. 7. Hyperlipidemia. 8. Occasional hypercalcemia uncertain etiology. 9. History of osteitis right foot with nonhealing ulcer/wound Surgical History: Right BKA 02/18/[address] Fontaine. Angioplasty right leg 04/[address] Hua. Left cataract removal 08/11/[address] Bahena. Vaginal hysterectomy for polapse in 11/19. Colonoscopy in 2005 was normal. Left BKA 29/10. Partial left foot ampuation in 07/19. B/L carpal and ulnar tunnel releases in 1998. Appendectomy in 1971. Cholecystectomy in 1971. Right BKA 02/18/17 Family History: Patient's father was a smoker and from lung cancer age 59. Her mother of old age in her 80s. 2 siblings have had lung cancer and are . Another sister of heart disease age 61. - Social History Smoking status: Former smoker (patient smoked from ages 12 through age 45 less than 1 pack daily) Packs per day: 0.8 Packs-years: 26 Substance use type: does not use Alcohol intake: never Alcohol intake frequency: does not drink Housing: house Household members: spouse Current residence: Apartment/Private Home Social history: Patient lives with her in their own home. They have 3 daughters and 1 son. Review of Systems - Constitutional Constitutional: Present: weight loss (apparently lost significant weight around the time of her most recent BKA.). Absent: anorexia, chills, fatigue, fever(s) , headache(s), lethargy, malaise, night sweats, weakness, weight gain [facility]: Absent: blurry vision, change in vision, diplopia Mouth/Throat: Absent: changes in swallowing, painful swallowing, change in taste , bleeding gums, change in voice - Cardiovascular Cardiovascular: Absent: chest pain, palpitations, syncope, dyspnea on exertion, orthopnea, edema, cyanosis, heart murmur Rhythm: Present: regular rhythm Vascular: Absent: intermittent claudication, pedal edema, unilateral swelling - Respiratory Respiratory: Absent: cough, dyspnea, hemoptysis, dyspnea on exertion, wheezing, pain on inspiration, chest congestion, excessive phlegm production - Gastrointestinal Gastrointestinal: Absent: abdominal pain, change in bowel habits, constipation, diarrhea, dyspepsia, dysphagia, early satiety, hematochezia, melena, nausea, vomiting - Genitourinary Genitourinary: Present: urinary urgency (with stress or sudden changes in position) - Musculoskeletal Musculoskeletal: Absent: abnormal gait, arthralgias, back pain, joint swelling, limited range of motion, muscle weakness - Integumentary/Breasts Integumentary: Absent: alopecia, erythema, lesions, pruritus, rash, jaundice - Neurological Neurological: Absent: abnormal gait, abnormal movements, abnormal speech, confusion, convulsions, dizziness, focal weakness, frequent falls, headache(s), loss of vision, memory loss, numbness, paresthesias, tremor(s) - Psychiatric Psychiatric: Absent: abnormal sleep pattern, anxiety, depression - Endocrine Endocrine: Absent: cold intolerance, flushing, heat intolerance, palpitations - Hematologic/Lymphatic Hematologic/Lymphatic: Absent: easy bleeding, easy bruising, lymphadenopathy - Allergic/Immunologic Allergic/Immunologic: Absent: urticaria Medications Home Medications Medication Instructions Recorded Confirmed Type Acetaminophen [Tylenol] 500 mg PO Q4HR PRN 05/18/17 05/18/17 History Atorvastatin [Lipitor] 2 tab PO DAILY 05/18/17 05/18/17 History Calcium 500 + D [[place]-D 500] 1 tab PO BID 05/18/17 05/18/17 History Citalopram [Celexa] 1 tab PO DAILY 05/18/17 05/18/17 History Glimepiride [Amaryl] 4 mg PO DAILY 05/18/17 05/18/17 History Hydrocodone/Acetaminophen 1 - 2 tab PO Q5HR PRN 05/18/17 05/18/17 History [Hydrocodon-Acetaminophen 5-325] Insulin Glargine [Lantus] 15 unit SQ HS 05/18/17 05/18/17 History Irbesartan [Avapro] 150 mg PO DAILY 05/18/17 05/18/17 History Levothyroxine Tab [Synthroid] 50 mcg PO ACB 05/18/17 05/18/17 History Metformin [Glucophage] 500 mg PO TIDWM 05/18/17 05/18/17 History Metoprolol Succinate 12.5 mg PO HS 05/18/17 05/18/17 History Milk of Magnesia [Mom] 30 ml PO DAILY PRN 05/18/17 05/18/17 History Multivitamin [One Daily 1 each PO DAILY 05/18/17 05/18/17 History Multivitamin] Senna + Docusate [Senna Plus 1 tab PO BID PRN 05/18/17 05/18/17 History Tablet] Allergies Allergy/AdvReac Type Severity Reaction Status Date / Time Penicillins Allergy Mild BLISTERS Verified 02/18/17 09:14 Iodinated Contrast- Oral and Allergy Unknown Sneezing Verified 02/18/17 09:14 IV Dye Sulfa (Sulfonamide Allergy Unknown HIVES Verified 02/18/17 09:14 Antibiotics) doxycycline AdvReac Nausea and Verified 02/18/17 09:14 Vomiting Results IRU - Labs Labs: Reviewed prior admission information. Exam Vital Signs: Temperature 97.4 F 05/18/17 12:40 Pulse Rate 60 05/18/17 12:40 Respiratory Rate 16 05/18/17 12:40 Blood Pressure 145/58 H 05/18/17 12:40 Pulse Oximetry 94 05/18/17 12:40 Height/Weight/BMI: Height 1.7 m Weight 91 kg Body Mass Index 31.4 - Constitutional Present: no acute distress, well nourished, well developed, obese, cooperative - Routine HEENT Exam Head: Present: normocephalic, atraumatic. Absent: cushingoid faces, abrasion, laceration, hematoma Eye: Present: EOMI, PERRL. Absent: conjunctival icterus, scleral injection, periorbital swelling, nystagmus ENT: Present: mucous membranes moist, oropharynx clear Comments: Patient has had what appears to be a recent keratosis frozen or removed by curettage on the forehead. There is a scab there. - Routine Neck Exam Present: supple, full ROM, trachea midline. Absent: lymphadenopathy, thyromegaly, tenderness, swelling - Routine Chest/Breast/Axilla Exam Chest wall: Absent: tenderness, mass Axillae: Absent: lymphadenopathy, mass - Routine Respiratory Exam Present: CTA bilaterally. Absent: accessory muscle use, decreased breath sounds , prolonged expiratory phase, rales, respiratory distress, rhonchi, stridor, wheezes, crackles, distant breath sounds - Routine Cardiovascular Exam Present: S1, S2, no murmur, irregularly irregular. Absent: gallop, S3, S4, click, irregular rhythm - Routine Abdominal Exam Present: soft, normoactive bowel sounds, non distended, non tender. Absent: rebound, guarding, firm, rigid, organomegaly, mass, hernia, wound - Routine Extremities Exam Absent: cyanosis, clubbing Comments: Patient has bilateral below the knee amputation. She did not want to remove her prostheses are present. However we will review the wounds and stumps when she does remove these. - Routine Back/Spine/Pelvis Exam Back/Spine: Present: full ROM. Absent: scoliosis, kyphosis - Routine Skin Exam Present: intact, dry, warm. Absent: cyanosis, erythema, pallor, mottling, petechiae, urticaria, lesions, jaundice - Routine Neurological Exam Present: alert, oriented X3, CN II-XII intact, moving all extremities, normal speech - Routine Psychiatric Exam Present: normal affect, normal thought process, cooperative, good insight, good judgment. Absent: depressed, anxious Sepsis Assessment - Evaluation Confirmed Suspected Infection: No SIRS Criteria: none IRU A/P (1) S/P bilateral BKA (below knee amputation) Current visit: Yes Status: Acute Left poykz-wyd-epnb amputation was in 2004. She has a new prosthesis on that side secondary to weight loss. Most recent below the knee amputation was on the right side on 02/18/2017. She has a new prosthesis on that side. She'll require a coordinated multidisciplinary approach for occupational therapy, physical therapy, 24 rehabilitation nursing and medical supervision in view of her diabetes and other medical conditions. In addition she is at risk for poor wound healing based on her previous experience. She had blisters after the initial prosthesis back in 2004. We will monitor her wounds carefully. (2) Diabetes type 2, controlled Qualifiers: Diabetes mellitus complication status: with circulatory complication Diabetes mellitus complication detail: with peripheral angiopathy with gangrene Diabetes mellitus penitentiary insulin use: with penitentiary use Qualified Code( s): E11.52 - Type 2 diabetes mellitus with diabetic peripheral angiopathy with gangrene; Z79.4 - custodial (current) use of insulin; Z79.4 - custodial (current ) use of insulin; Z79.4 - laborer marine terminal (current) use of insulin; Z79.4 - laborer marine terminal (current) use of insulin Current visit: No Status: Acute She is on long-term insulin as well as oral agents. We will monitor her blood sugars 4 times daily. She has at risk for hypoglycemia or hyperglycemia in view of the varying work requirements involved with rehabilitation. (3) Atrial fibrillation Qualifiers: Atrial fibrillation type: chronic Qualified Code(s): I48.2 - Chronic atrial fibrillation Current visit: Yes Status: Chronic Pharmacy will be involved in management of her warfarin dose and INR monitoring. DVT Prophylaxis: Coumadin Resuscitation Status: Do Not Intubate (please see discussion in history of present illness.) - Course Hospital Course: Oni Treviño MD: - Interventions to Obtain Goals PT Treatment Plan: Balance/Proprioception, Functional Activities, Gait Training , Patient/Family Education OT Treatment Plan: ADL (Basic Care), Balance Training, Pt./Family Education Goals Progress/Modifications: An individualized multidisciplinary program will be outlined for this patient. She has bilateral knee prostheses and a recent right nowst-tmf-oggm amputation. She will require extensive training and strengthening to regain her ability to ambulate and transfer safely and reduce risk of falls. In addition we will monitor her blood sugars and blood pressures as well as any risk of bleeding. Her wounds will be monitored as well.
--- NOTE | 2017-05-18 14:26 | IRU 24Hr Post Admit Eval ---
24 Hr Post Admission Physical - Relevant Changes Relevant Changes: No Reviewed: I have reviewed the patient's information and concur with the finding and results of the pre-admission screen. Certification: I certify the patient for rehabilitation. - Patient Condition (1) S/P bilateral BKA (below knee amputation) Status: Acute Code(s): Z89.512 - Acquired absence of left leg below knee; Z89.511 - Acquired absence of right leg below knee Classification: Present on IRF Admission, IRF Tx That Should Address Diagnosis, Diagnosis Requiring Medical Follow Up (2) Diabetes type 2, controlled Status: Acute Qualifiers: Diabetes mellitus complication status: with circulatory complication Diabetes mellitus complication detail: with peripheral angiopathy with gangrene Diabetes mellitus intermediate insulin use: with termite technician use Qualified Code( s): E11.52 - Type 2 diabetes mellitus with diabetic peripheral angiopathy with gangrene; Z79.4 - superintendent container terminal (current) use of insulin; Z79.4 - skilled nursing (current ) use of insulin; Z79.4 - superintendent container terminal (current) use of insulin; Z79.4 - skilled nursing (current) use of insulin Code(s): E11.9 - Type 2 diabetes mellitus without complications Classification: Present on IRF Admission, IRF Tx That Should Address Diagnosis, Diagnosis Requiring Medical Follow Up (3) Atrial fibrillation Status: Chronic Qualifiers: Atrial fibrillation type: chronic Qualified Code(s): I48.2 - Chronic atrial fibrillation Code(s): I48.91 - Unspecified atrial fibrillation Classification: Present on IRF Admission, IRF Tx That Should Address Diagnosis, Diagnosis Requiring Medical Follow Up - Prior Functional Status Lives With: Spouse Residence Type: Apartment/Private Home Assitive Devices: Large Base Quad Cane Prior Functional Status: Indep. at home or school, Used assistive device - Current Functional Status Current Level of Function: Current level of functioning is as follows: She requires minimum assistance for bathing, supervision level for upper body dressing, moderate assistance for lower body dressing, toileting, bed/chair/wheelchair transfers and modified independent for wheelchair. She is unable to walk prior to the acquisition of her new prostheses which have come today. Failed Alternative Therapy: Arrived from Acute Care Patient Requirements: The patient requires oversight by rehabilitation physician to manage their rehabilitation treatment plan and multidisciplinary approach to care that can only be provided in an IRF and requires a multidisciplinary approach to care, provided by professional PTs, OTs, STs, dieticians, RTs, rehabilitation nurses and is not available in lesser levels of care. Limitations Req: Mobility Impairment, ADL Impairment, Limited Mobility Physical Therapy Minutes: 90 Occupational Therapy Minutes: 90 Therapy: The patient is to receive therapy at least 5 days a week. - Complications/Comorbidities Impact on Functional Outcomes: Is anticipated to her strength and reduced endurance will impact her functional outcome. Barriers to Discharge: Weakness, Balance, Endurance - Plan to Avoid Complications Plan to Avoid Complications: The patient cannot receive this care in a lesser intensive setting such as Nursing Home or Outpatient Therapy due to the patient requiring the following : Patient requires 24 rehabilitation nursing to reduce risk of falls, monitor blood sugars and evaluate and monitor her wounds for adequate healing. She requires a multidisciplinary approach from physical therapy, occupational therapy for transfers and ADLs as well as medical supervision in view of her diabetes and atrial fibrillation with warfarin usage.
--- NOTE | 2017-05-18 14:42 | Pharmacy Consult ---
Pharmacy Consult-Warfarin - Laboratory Information 05/18/17 14:14 INR 1.50 H - Consult Information COUMADIN CONSULT (Initial): 5'7" female 91 kg age 76 yo who is on warfarin 7 mg daily at home for A-Fib. She also has diabetes. She tales warfarin 7 mg daily at home. Dx:Bilateral Below the Knee amputation. Baseline INR = 1.5 Will give Warfarin 5 mg today and monitor INR daily. Thank you for the warfarin consult. Meredith Patton, PharmD
[2017-05-18] MEDS ORDERED: WARFARIN 5 MG TABLET PO ONE (15:30)
--- NOTE | 2017-05-18 15:39 | Consult Note ---
<April Juarez - Last Filed: 05/18/17 15:35> Consult Information - Data of Consult Consult date: 05/18/17 Requesting Physician: Oni Treviño MD Primary Care Provider: Liza Wellington MD Family Provider: Liza Wellington MD - Consult Narrative Reason for consult: Medical management History of present illness: "Kuldip" is a 76 year old woman seen in consultation from Dr. Treviño for medical management of A-fib, DM2, and HTN. She recently was fitted for 2 new prosthetic legs - left BKA was done in 2004 but her right was amputated in Feb 2017 for a nonhealing ankle ulcer and osteomyelitis. She reports that she has been at [facility] for the last 4 months. She has been in good health and ROS was largely negative. Her diabetes is under good control although she doesn't know what her blood sugar typically runs - when she has low readings she feels flushed, sweaty , and dizzy. She denies any recent illnesses or GI symptoms. Her goal is to get used to her new prosthetics. PFSH Atrial fibrillation, anticoagulated on coumadin. Echo 03/18/15 showed EF 65-70%, biatrial enlargement and mild pulm HTN HTN DM type 2, insulin dependent (diagnosed in 1998). A1c was 6.5% on 03/04/17 PVD Obesity Hypothyroidism Hyperlipidemia Osteopenia Intermittent hypercalcemia Surgical History: Right BKA 02/18/[address] Fontaine. Angioplasty right leg 04/[address] Hua. Left cataract removal 08/11/[address] Bahena. Vaginal hysterectomy for polapse in 11/19. Colonoscopy in 2005 was normal. Left BKA 29/10. Partial left foot ampuation in 07/19. B/L carpal and ulnar tunnel releases in 1998. Appendectomy in 1971. Cholecystectomy in 1971. Right BKA 02/18/17 Family History: Father was a smoker and of lung cancer at age 59. Mother of old age (82 years old) 2 siblings were smokers and of lung cancer in their 50s. A sister at age 61 of heart problems. - Social History Smoking status: Former smoker Packs-years: 34 Quit date: 06/14/87 Substance use type: does not use Alcohol intake frequency: holidays/special occasions only Review of Systems All systems PM: 10-point ROS was reviewed, no additional remarkable complaints except - Constitutional Constitutional: Absent: chills, fever(s), headache(s) - EENMT Eyes: Present: requires corrective lenses. Absent: change in vision Nose: Absent: obstruction Mouth/Throat: Absent: sore throat, changes in swallowing - Cardiovascular Cardiovascular: Absent: chest pain, palpitations Rhythm: Present: abnormal rhythm Vascular: Present: see HPI, other (B/L BKA) - Respiratory Respiratory: Absent: cough, dyspnea, wheezing - Gastrointestinal Gastrointestinal: Present: dyspepsia (occasional heartburn). Absent: abdominal pain, constipation, diarrhea, dysphagia, nausea, vomiting - Genitourinary Genitourinary: Present: urinary frequency (chronic). Absent: dysuria - Musculoskeletal Musculoskeletal: Absent: back pain - Integumentary/Breasts Integumentary: Present: wounds (hx of wounds to stumps - resolved) - Neurological Neurological: Present: abnormal gait. Absent: confusion, dizziness, headache(s) , numbness, paresthesias - Psychiatric Psychiatric: Absent: anxiety, depression - Endocrine Endocrine: Absent: excessive sweating, flushing, palpitations - Hematologic/Lymphatic Hematologic/Lymphatic: Present: easy bleeding, easy bruising - Allergic/Immunologic Allergic/Immunologic: Absent: seasonal rhinorrhea Medications Home Medications Medication Instructions Recorded Confirmed Type Acetaminophen [Tylenol] 500 mg PO Q4HR PRN 05/18/17 05/18/17 History Atorvastatin [Lipitor] 2 tab PO DAILY 05/18/17 05/18/17 History Calcium 500 + D [Os Rio-D 500] 1 tab PO BID 05/18/17 05/18/17 History Citalopram [Celexa] 1 tab PO DAILY 05/18/17 05/18/17 History Glimepiride [Amaryl] 4 mg PO DAILY 05/18/17 05/18/17 History Hydrocodone/Acetaminophen 1 - 2 tab PO Q5HR PRN 05/18/17 05/18/17 History [Hydrocodon-Acetaminophen 5-325] Insulin Glargine [Lantus] 15 unit SQ HS 05/18/17 05/18/17 History Irbesartan [Avapro] 150 mg PO DAILY 05/18/17 05/18/17 History Levothyroxine Tab [Synthroid] 50 mcg PO ACB 05/18/17 05/18/17 History Metformin [Glucophage] 500 mg PO TIDWM 05/18/17 05/18/17 History Metoprolol Succinate 12.5 mg PO HS 05/18/17 05/18/17 History Milk of Magnesia [Mom] 30 ml PO DAILY PRN 05/18/17 05/18/17 History Multivitamin [One Daily 1 each PO DAILY 05/18/17 05/18/17 History Multivitamin] Senna + Docusate [Senna Plus 1 tab PO BID PRN 05/18/17 05/18/17 History Tablet] Allergies Allergy/AdvReac Type Severity Reaction Status Date / Time Penicillins Allergy Mild BLISTERS Verified 02/18/17 09:14 Iodinated Contrast- Oral and Allergy Unknown Sneezing Verified 02/18/17 09:14 IV Dye Sulfa (Sulfonamide Allergy Unknown HIVES Verified 02/18/17 09:14 Antibiotics) doxycycline AdvReac Nausea and Verified 02/18/17 09:14 Vomiting Exam Vital Signs: Temperature 97.4 F 05/18/17 12:40 Pulse Rate 60 05/18/17 12:40 Respiratory Rate 16 05/18/17 12:40 Blood Pressure 145/58 H 05/18/17 12:40 Pulse Oximetry 94 05/18/17 12:40 Height/Weight/BMI: Height 1.7 m Weight 91 kg Body Mass Index 31.4 - Constitutional Present: no acute distress, well nourished, well developed - Routine HEENT Exam Head: Present: normocephalic Eye: Present: PERRL. Absent: conjunctival icterus, scleral injection ENT: Present: oropharynx clear. Absent: dentition normal (dentures) - Routine Neck Exam Present: supple - Routine Respiratory Exam Present: CTA bilaterally - Routine Cardiovascular Exam Present: S1, S2 - Routine Abdominal Exam Present: soft, normoactive bowel sounds, non distended, non tender - Routine Extremities Exam Present: no edema, amputation (B/L BKA) - Routine Back/Spine/Pelvis Exam Back/Spine: Present: full ROM - Routine Skin Exam Present: intact, dry, warm - Routine Neurological Exam Present: alert, oriented X3, CN II-XII intact, moving all extremities, vision grossly intact, hearing grossly intact, normal speech. Absent: facial asymmetry - Routine Psychiatric Exam Present: normal affect, normal thought process, cooperative Assessment and Plan (1) Amputated below knee Current visit: No Status: Acute Assessment and Plan: IMPRESSION B/L BKA Atrial fibrillation, anticoagulated on Coumadin. Echo 03/18/15 showed EF 65-70%, biatrial enlargement and mild pulmonary HTN HTN DM2, insulin dependent (diagnosed in 1998). A1c was 6.5% on 03/04/17 PVD Obesity Hypothyroidism Hyperlipidemia Osteopenia Intermittent hypercalcemia PLAN Multiple medical conditions, all presently stable. Continue home meds. Monitor BGMs; DM under good control with Amaryl, Metformin and insulin. Beware of hypoglycemia with increased activity. Agree with checking baseline labs in the morning. Note - previous admission family raised some concerns about mild cognitive deficits - monitor for delirium; provide extra reassurance/redirection if needed. Thank you for this consult - hospitalist dept will f/u on pending labs. We will follow along with you. DVT Prophylaxis: Coumadin Resuscitation Status: Do Not Intubate Hospital Course Summary Disclaimer: The visit summary below is not to be considered part of the above Progress Note. Hospital Course: 05/18/17 IMPRESSION B/L BKA Atrial fibrillation, anticoagulated on Coumadin. Echo 03/18/15 showed EF 65-70%, biatrial enlargement and mild pulmonary HTN HTN DM2, insulin dependent (diagnosed in 1998). A1c was 6.5% on 03/04/17 PVD Obesity Hypothyroidism Hyperlipidemia Osteopenia Intermittent hypercalcemia PLAN Multiple medical conditions, all presently stable. Continue home meds. Monitor BGMs; DM under good control with Amaryl, Metformin and insulin. Beware of hypoglycemia with increased activity. Agree with checking baseline labs in the morning. Note - previous admission family raised some concerns about mild cognitive deficits - monitor for delirium; provide extra reassurance/redirection if needed. Thank you for this consult - hospitalist dept will f/u on pending labs. We will follow along with you. <Tomas Marrufo - Last Filed: 05/18/17 19:33> Consult Information - Data of Consult Requesting Physician: Oni Treviño MD Primary Care Provider: Liza Wellington MD Family Provider: Liza Wellington MD [facility] Patient Stated Medical History Cataracts Yes: Left several years ago Cardiac Arrhythmia Yes: Afib Hypertension Yes Asthma No Bronchitis No Chronic Obstructive Pulmonary No Disease (COPD) Pneumonia No Pulmonary Edema No Pulmonary Embolism No Sleep Apnea No Tuberculosis No Other Respiratory No Diabetes Mellitus Type 1 Yes Diabetes Mellitus Type 2 Yes Gastroesophageal Reflux Yes Disease Hx Renal Disease No Clotting Problems Yes: WARFARIN Other Musculoskeletal Yes: Right leg wound MRSA Yes Other Infectious Yes: OSTEOMYELITIS R ANKLE 2017 Anesthesia Reactions No Blood Transfusions No Chemotherapy No Malignant Hyperthermia No Other No Post Menopausal Yes Now No Clinic Medical History Normocytic anemia (Acute Medical) Hypercalcemia (Acute Medical) Diabetes type 2, controlled (Acute Medical) Postsurgical fever (Acute Medical) DM (diabetes mellitus) type II controlled peripheral vascular disorder (Acute Medical) Atrial fibrillation (Chronic Medical) Exam Vital Signs: Temperature 97.4 F 05/18/17 12:40 Pulse Rate 60 05/18/17 12:40 Respiratory Rate 16 05/18/17 12:40 Blood Pressure 145/58 H 05/18/17 12:40 Pulse Oximetry 94 05/18/17 12:40 Height/Weight/BMI: Height 1.7 m Weight 91 kg Body Mass Index 31.4 Assessment and Plan (1) Amputated below knee Current visit: No Status: Acute Assessment and Plan: IMPRESSION B/L BKA Atrial fibrillation, anticoagulated on Coumadin. Echo 03/18/15 showed EF 65-70%, biatrial enlargement and mild pulmonary HTN HTN DM2, insulin dependent (diagnosed in 1998). A1c was 6.5% on 03/04/17 PVD Obesity Hypothyroidism Hyperlipidemia Osteopenia Intermittent hypercalcemia Have independently interviewed and examined pt. Chart reviewed. Case discussed with my CLIENT ADMINISTRATOR. Above care plan developed with my supervision; agree with above. Admitted to IRU for restorative therapy for bilateral BKA. Had her new prosthesis fit today. Very encourage about being able to improve her ambulation ability. Hopeful that therapy will go well-does have good knowledge about mobility post BKA secondary to her first surgery. Medically feeling well. Breathing well-not SOA or congested. Eating well. No new problems or concerns. Lungs: clear CV: regular AB: soft nt/nd MSE: awake alert appropriate Plan: Agree with admission of patient to IRU to maximize functional status secondary to second BKA. Continue home medications. Monitor blood sugars. Encourage therapy. Patient medically stable for IRU floor activities. Hospital Course Summary Disclaimer: The visit summary below is not to be considered part of the above Progress Note.
[2017-05-18] MEDS: METFORMIN 500 MG TABLET PO SCH (17:59)
[2017-05-18] MEDS: INSULIN GLARGINE 100unit/ml INJECTION SQ SCH (20:30)
[2017-05-18] MEDS: CALCIUM 500 + VIT D 200 TABLET PO SCH (20:32)
[2017-05-18] MEDS ORDERED: INSULIN ASPART 100unit/ml INJECTION SQ PRN (20:53)
[2017-05-19] MEDS: LEVOTHYROXINE 50 MCG TABLET PO SCH ×2 (04:44→20:34)
--- NOTE | 2017-05-19 08:02 | Pharmacy Consult ---
Pharmacy Consult-Warfarin - Laboratory Information 05/18/17 05/19/17 14:14 04:38 INR 1.50 H 1.40 H - Consult Information NORMA is a 76 yo female admitted for a below the knee amputation on one leg and a revision on the other leg. The patient is now a double amputee. The patient was admitted taking warfarin because the patient has a diagnosis of Atrial Fibrillation. The patient currently takes warfarin 7 mg po daily at home. Date INR Dose 05/18 1.50 5 mg 05/19 1.40 6 mg The patient is still subtherapeutic. The dose of warfarin yesterday was 5 mg and the INR has dropped, so today I am ordering a 6 mg dose today. The Pharmacy will continue to monitor the INR's and adjust the dosage of the Coumadin accordingly. Thanks for Warfarin Dosing Protocol, Aryan Murrya, Pharmacist.
[2017-05-19] MEDS: GLIMEPIRIDE 4 MG TABLET PO SCH (08:32)
[2017-05-19] MEDS: MULTI-VITAMIN PLAIN TABLET PO SCH (08:32)
[2017-05-19] MEDS: METFORMIN 500 MG TABLET PO SCH ×3 (08:32→17:48)
[2017-05-19] MEDS: CITALOPRAM 20 MG TABLET PO SCH (08:33)
[2017-05-19] MEDS: IRBESARTAN 150 MG TABLET PO SCH (08:33)
[2017-05-19] MEDS: CALCIUM 500 + VIT D 200 TABLET PO SCH ×2 (08:33→20:51)
[2017-05-19 08:40] VITALS: BMI 29.5
[2017-05-19] MEDS ORDERED: ATORVASTATIN 40 MG TABLET PO SCH (09:00)
[2017-05-19] MEDS: INSULIN ASPART 100unit/ml INJECTION SQ PRN ×2 (10:26→20:50)
--- NOTE | 2017-05-19 10:27 | IRU Progress Note ---
- Subjective/Serverity of Illness Date: 05/19/17 Gurmeet was evaluated both in the physical therapy/occupational therapy gymnasium area as well as her room. She states that she is tolerating therapy well. There is only minimal discomfort with use of the prosthesis. I did inspect the stump after removal of the prosthesis. There is some mild redness anteriorly. It is not particular warm and there is no open wound at present. The previously noted wound has closed completely. She denies any chest pain or shortness of breath. Current update on medical conditions requiring active monitoring and management: 1. DM II on fdc insulin: Her blood sugars are running a bit on the higher side. Ranges 150-to greater than 200. No hypoglycemic episodes are noted. Management per hospitalist service. 2. Atrial fibrillation: She is somewhat subtherapeutic on her INR. Management per hospitalist. 3. Difficulty with pressure sores after the previous [id number] amputation as well as recent wound healing. There is some typical redness as anticipated involving the right stump. No open wounds are noted. And overall she is tolerating therapy well. Exam Vital Signs: Temperature 98.1 F 05/19/17 08:00 Pulse Rate 44 L 05/19/17 08:00 Respiratory Rate 18 05/19/17 08:00 Blood Pressure 159/62 H 05/19/17 08:00 Pulse Oximetry 100 05/19/17 08:00 Height/Weight/BMI: Height 1.7 m Weight 85.6 kg Body Mass Index 29.5 Comments: The patient is awake, alert and oriented and in no acute distress. The neck is supple. Chest: Clear to auscultation bilaterally. Cor: irregular rhythm with no gallop, click nor murmur Abd: soft with normo-active bowel sounds. There are no masses, no tenderness and no guarding. Extremities: I inspected the right stump. There is a bit of redness anteriorly and distally but no evidence of active inflammation/infection. The previously noted wounds are healing well. No evidence of open wound present. Results IRU - Labs Labs: INR and vital signs reviewed. IRU A/P (1) S/P bilateral BKA (below knee amputation) Current visit: Yes Status: Acute Pain is adequately controlled. She is tolerating therapy well. Inspection of the stump shows no significant concerns. (2) Diabetes type 2, controlled Qualifiers: Diabetes mellitus complication status: with circulatory complication Diabetes mellitus complication detail: with peripheral angiopathy with gangrene Diabetes mellitus fdc insulin use: with fdc use Qualified Code( s): E11.52 - Type 2 diabetes mellitus with diabetic peripheral angiopathy with gangrene; Z79.4 - petroleum terminal plant operator (current) use of insulin; Z79.4 - detention (current ) use of insulin; Z79.4 - petroleum terminal plant operator (current) use of insulin; Z79.4 - detention (current) use of insulin Current visit: No Status: Acute Blood sugars running a tad high. Management per hospitalist service. (3) Atrial fibrillation Qualifiers: Atrial fibrillation type: chronic Qualified Code(s): I48.2 - Chronic atrial fibrillation Current visit: Yes Status: Chronic INR somewhat subtherapeutic. Pharmacy managing. DVT Prophylaxis: Coumadin Resuscitation Status: Do Not Intubate - Course Hospital Course: Oni Treviño MD: 05/19/17 10:28 Cooperating with therapy. Inspection of stump shows adequate healing of wound. Mild redness only as anticipated with new prosthesis. Blood pressures and sugars are running slightly high. - Interventions to Obtain Goals PT Treatment Plan: Balance/Proprioception, Functional Activities, Gait Training , Patient/Family Education, Therapeutic Exercise OT Treatment Plan: ADL (Basic Care), Balance Training, Pt./Family Education, Ther. Exercise for ADL
--- NOTE | 2017-05-19 11:27 | IRU Plan of Care ---
[facility] Overall Plan of Care - Date Date: 05/19/17 - Patient Impairments (1) Amputated below knee Qualifiers: Laterality: bilateral Qualified Code(s): Z89.512 - Acquired absence of left leg below knee; Z89.511 - Acquired absence of right leg below knee; Z89.511 - Acquired absence of right leg below knee; Z89.511 - Acquired absence of right leg below knee Code(s): Z89.519 - Acquired absence of unspecified leg below knee Status: Acute Classification: Present on IRF Admission, IRF Tx That Should Address Diagnosis, Diagnosis Requiring Medical Follow Up (2) DM (diabetes mellitus) type II controlled peripheral vascular disorder Code(s): E11.51 - Type 2 diabetes mellitus with diabetic peripheral angiopathy without gangrene Status: Chronic Classification: Present on IRF Admission, IRF Tx That Should Address Diagnosis, Diagnosis Requiring Medical Follow Up (3) Atrial fibrillation Qualifiers: Atrial fibrillation type: chronic Qualified Code(s): I48.2 - Chronic atrial fibrillation Code(s): I48.91 - Unspecified atrial fibrillation Status: Chronic Classification: Present on IRF Admission, IRF Tx That Should Address Diagnosis, Diagnosis Requiring Medical Follow Up (4) Status post below knee amputation of right lower extremity Code(s): Z89.511 - Acquired absence of right leg below knee Status: Acute Classification: Present on IRF Admission, IRF Tx That Should Address Diagnosis, Diagnosis Requiring Medical Follow Up - Relevant Changes Relevant Changes: No Reviewed: I have reviewed the patient's information and concur with the finding and results of the pre-admission screen. Certification: I certify the patient for rehabilitation. - Medical Prognosis Medical Prognosis: Good Vital Signs: Last Vital Signs Temp 98.1 F 05/19/17 08:00 Pulse 44 L 05/19/17 08:00 Resp 18 05/19/17 08:00 BP 159/62 H 05/19/17 08:00 Pulse Ox 100 05/19/17 08:00 - Anticipated Interventions Anticipated Interventions: The patient requires inpatient IRF care for PT and OT for residuals remaining from recent right aqqxw-yuz-vaib amputation and history of left zfcnt-vza-curk amputation resulting in muscular weakness and strength deficits. An individualized overall plan of care has been developed after careful review of the patient's preadmission screening, post admission physician evaluation and assessments of all therapy disciplines and/or other pertinent clinicians involved in treating the patient. This indicates medical necessity and rehabilitation necessity have been established through a thorough review of all available medical information. Strength Deficits: Right Lower Extremity, Left Lower Extremity - Current Functional Status Failed Alternative Therapy: Yes (patient recently underwent fpc care at [facility]) Patient Requires: The patient requires oversight by rehabilitation physician to manage their rehabilitation treatment plan and multidisciplinary approach to care that can only be provided in an IRF and requires a multidisciplinary approach to care, provided by professional PTs, OTs, STs, rehabilitation nurses, and may require STs, dieticians, and RTS. This is not available in lesser levels of care. Physical Therapy Minutes: 90 Occupational Therapy Minutes: 90 Therapy: The patient is to receive therapy at least 5 days a week. - Anticipated LOS/Outcomes Anticipated Functional Outcome: Expected functional improvements include: -- Modified independant to independant ambulation with or without assistive device -- Modified independant to independant ADL's with or without assistive device -- Return to pre-morbid level of mobility -- Maximize level of mobility and ADL's to decrease burden on any caregiver involved with this patient's care Anticipated Length of Stay (days): 5 Anticipated DC Destination: Home, Self [facility] Safety Plan: The patient will be provided with the development of a Home Safety Plan for return to a home or home-like environment and and to ensure safety post discharge. - Plan to Avoid Complications Barriers to Attaining Goals: Weakness, Balance, Endurance Plan to Avoid Complications: The patient cannot receive this care in a lesser intensive setting such as Prison or Outpatient Therapy due to the patient requiring the following : Patient requires close monitoring of blood sugars in view of her diabetes and additional work requirements involved with the rehabilitation following her recent right [id number]-uvp-uknz amputation and acquisition of bilateral new prostheses. She requires a coordinated plan between occupational therapy, physical therapy and a rehabilitation nursing with medical supervision in view of her diabetes, muscle weakness and atrial fibrillation requiring monitoring and dosing of warfarin.
[2017-05-19] MEDS ORDERED: WARFARIN 6 MG TABLET PO SCH (12:00)
[2017-05-19] MEDS: INSULIN GLARGINE 100unit/ml INJECTION SQ SCH (20:49)
[2017-05-20] MEDS: INSULIN ASPART 100unit/ml INJECTION SQ PRN ×3 (06:10→20:22)
[2017-05-20] MEDS: LEVOTHYROXINE 50 MCG TABLET PO SCH (06:10)
--- NOTE | 2017-05-20 07:43 | Pharmacy Consult ---
Pharmacy Consult-Warfarin - Laboratory Information 05/18/17 05/19/17 05/20/17 14:14 04:38 05:17 INR 1.50 H 1.40 H 1.54 H - Consult Information NORMA is a 76 yo female admitted for a below the knee amputation on one leg and a revision on the other leg. The patient is now a double amputee. The patient was admitted taking warfarin because the patient has a diagnosis of Atrial Fibrillation. The patient currently takes warfarin 7 mg po daily at home. Date INR Dose 05/18 1.50 5 mg 05/19 1.40 6 mg 05/20 1.54 7 mg The patient is still subtherapeutic. The dose of warfarin yesterday was 6 mg and the INR has improved just above the original INR, so today I am ordering a 7mg dose today, which is her home dose. The Pharmacy will continue to monitor the INR's and adjust the dosage of the Coumadin accordingly. Thanks for Warfarin Dosing Protocol, Aryan Murray, Pharmacist.
[2017-05-20] MEDS: GLIMEPIRIDE 4 MG TABLET PO SCH (08:16)
[2017-05-20] MEDS: METFORMIN 500 MG TABLET PO SCH ×3 (08:16→17:17)
[2017-05-20] MEDS: MULTI-VITAMIN PLAIN TABLET PO SCH (08:16)
[2017-05-20] MEDS: CITALOPRAM 20 MG TABLET PO SCH (08:16)
[2017-05-20] MEDS: IRBESARTAN 150 MG TABLET PO SCH (08:17)
[2017-05-20] MEDS: CALCIUM 500 + VIT D 200 TABLET PO SCH ×2 (08:17→20:19)
[2017-05-20] MEDS ORDERED: WARFARIN 5 MG, WARFARIN 2 MG PO SCH (12:00)
[2017-05-20] MEDS: ATORVASTATIN 40 MG TABLET PO SCH (20:19)
[2017-05-20] MEDS: INSULIN GLARGINE 100unit/ml INJECTION SQ SCH (20:21)
[2017-05-21] MEDS: LEVOTHYROXINE 50 MCG TABLET PO SCH (06:04)
[2017-05-21] MEDS: MULTI-VITAMIN PLAIN TABLET PO SCH (08:37)
[2017-05-21] MEDS: CITALOPRAM 20 MG TABLET PO SCH (08:37)
[2017-05-21] MEDS: IRBESARTAN 150 MG TABLET PO SCH (08:37)
[2017-05-21] MEDS: CALCIUM 500 + VIT D 200 TABLET PO SCH ×2 (08:37→21:46)
[2017-05-21] MEDS: METFORMIN 500 MG TABLET PO SCH ×3 (08:37→17:40)
[2017-05-21] MEDS: GLIMEPIRIDE 4 MG TABLET PO SCH (08:37)
--- NOTE | 2017-05-21 08:44 | Pharmacy Consult ---
Pharmacy Consult-Warfarin - Laboratory Information 05/18/17 05/19/17 05/20/17 14:14 04:38 05:17 INR 1.50 H 1.40 H 1.54 H 05/21/17 04:43 INR 1.52 H - Consult Information Warfarin 7.5mg ordered for today. Will continue to monitor. Thank you.
--- NOTE | 2017-05-21 11:12 | IRU Progress Note ---
- Subjective/Serverity of Illness Date: 05/21/17 Ms. Vasquez was evaluated in her room. She denies any pains. Did not remove the prosthesis for October but states that there is no redness involving the right distal stump. She is improving nicely with therapy. Team meeting this for review of multidisciplinary input. She does have frequent urination at night which is not unusual for her. The patient continues to have a subtherapeutic INR at 7.5 mg daily warfarin. She is on this for atrial fibrillation. Blood sugars reviewed. Typically in the 170-200 range. Patient has indicated she does not limit intake. Exam Vital Signs: Temperature 97.7 F 05/21/17 08:00 Pulse Rate 53 L 05/21/17 08:00 Respiratory Rate 16 05/21/17 08:00 Blood Pressure 152/67 H 05/21/17 08:00 Pulse Oximetry 96 05/21/17 08:00 Height/Weight/BMI: Height 1.7 m Weight 85.6 kg Body Mass Index 29.5 Comments: The patient is awake, alert and oriented and in no acute distress. Pupils are equal. The neck is supple. Chest: Clear to auscultation bilaterally. Cor: Irreg rhythm with faint sys murmur. Abd: soft with normo-active bowel sounds. There are no masses, no tenderness and no guarding. Extremities: Patient did not remove her prosthesis today. Results IRU - Labs Labs: INR IRU A/P (1) Amputated below knee Qualifiers: Laterality: bilateral Qualified Code(s): Z89.512 - Acquired absence of left leg below knee; Z89.511 - Acquired absence of right leg below knee; Z89.511 - Acquired absence of right leg below knee; Z89.511 - Acquired absence of right leg below knee Current visit: No Status: Acute She has improved nicely with therapy. Team meeting this noon for overview assessment and recommendations for dismissal. (2) DM (diabetes mellitus) type II controlled peripheral vascular disorder Current visit: Yes Status: Chronic Blood sugars running a bit too high. We will discuss with the patient the issue of elevated blood sugars. It is my understanding she does not wish to limit intake however. (3) Atrial fibrillation Qualifiers: Atrial fibrillation type: chronic Qualified Code(s): I48.2 - Chronic atrial fibrillation Current visit: Yes Status: Chronic INR is subtherapeutic at present. It is likely she will be dismissed in the next 24 hours. We will recommend warfarin dosage at the time of dismissal. (4) Status post below knee amputation of right lower extremity Current visit: No Status: Acute DVT Prophylaxis: Coumadin Resuscitation Status: Do Not Intubate - Course Hospital Course: Oni Treviño MD: 05/19/17 10:28 Cooperating with therapy. Inspection of stump shows adequate healing of wound. Mild redness only as anticipated with new prosthesis. Blood pressures and sugars are running slightly high. 05/21/17 11:12 She is doing well with therapy. She states there is no redness noted at this time of the distal stump. Blood sugars continued to be elevated. - Interventions to Obtain Goals PT Treatment Plan: Balance/Proprioception, Functional Activities, Gait Training , Patient/Family Education, Therapeutic Exercise OT Treatment Plan: ADL (Basic Care), Balance Training, Pt./Family Education, Ther. Exercise for ADL
--- NOTE | 2017-05-21 11:16 | Progress Note ---
<April Juarez - Last Filed: 05/21/17 11:11> - Date 05/21/17 Subjective: Kuldip is doing quite well, and is hopeful for discharge home soon. She's looking forward to going home - the last 4 months she's been in [place]. She denies any pain, dizziness, SOA. She has a mild erythemic rash on her left thigh - she states b/c she wore her prosthetic all day long yesterday. She described her functional abilities - climbing stairs, getting in/out of vehicles, participating in PT, etc. Objective Vital signs: Temperature 97.7 F 05/21/17 08:00 Pulse Rate 53 L 05/21/17 08:00 Respiratory Rate 16 05/21/17 08:00 Blood Pressure 152/67 H 05/21/17 08:00 Pulse Oximetry 96 05/21/17 08:00 Height/Weight/BMI: Height 1.7 m Weight 85.6 kg Body Mass Index 29.5 - Constitutional Present: no acute distress, well nourished, well developed - Routine HEENT Exam Head: Present: normocephalic Eye: Absent: conjunctival icterus ENT: Present: oropharynx clear - Routine Respiratory Exam Present: CTA bilaterally - Routine Cardiovascular Exam Present: RRR, S1, S2 - Routine Abdominal Exam Present: soft, normoactive bowel sounds, non distended, non tender - Routine Extremities Exam Present: amputation (B/L BKA) - Routine Musculoskeletal Exam Musculoskeletal: Present: moving extremities well - Routine Skin Exam Present: intact, dry, warm, rash (erythemic contact rash from prosthetic wrap ( suspect from the elastic needing frequent repositioning)) - Routine Neurological Exam Present: alert, oriented X3, CN II-XII intact, normal speech - Routine Psychiatric Exam Present: normal affect, normal thought process, cooperative Results - Labs CBC & Chem 7: 05/19/17 04:38 05/19/17 04:38 Assessment and Plan (1) Amputated below knee Current visit: No Status: Acute Assessment and Plan: IMPRESSION B/L BKA Atrial fibrillation, anticoagulated on Coumadin. Echo 03/18/15 showed EF 65-70%, biatrial enlargement and mild pulmonary HTN HTN DM2, insulin dependent (diagnosed in 1998). A1c was 6.5% on 03/04/17 PVD Obesity Hypothyroidism Hyperlipidemia Osteopenia Intermittent hypercalcemia PLAN INR still subtherapeutic - continue Coumadin per pharmacy. Blood sugars with intermittent elevations >200, overall fairly good control. She met with the dietitian today for diabetic education. VS stable & admission labs were unremarkable. Medically stable. DVT Prophylaxis: Coumadin Hospital Course Summary Disclaimer: The visit summary below is not to be considered part of the above Progress Note. Hospital Course: 05/18/17 IMPRESSION B/L BKA Atrial fibrillation, anticoagulated on Coumadin. Echo 03/18/15 showed EF 65-70%, biatrial enlargement and mild pulmonary HTN HTN DM2, insulin dependent (diagnosed in 1998). A1c was 6.5% on 03/04/17 PVD Obesity Hypothyroidism Hyperlipidemia Osteopenia Intermittent hypercalcemia PLAN Multiple medical conditions, all presently stable. Continue home meds. Monitor BGMs; DM under good control with Amaryl, Metformin and insulin. Beware of hypoglycemia with increased activity. Agree with checking baseline labs in the morning. Note - previous admission family raised some concerns about mild cognitive deficits - monitor for delirium; provide extra reassurance/redirection if needed. Thank you for this consult - hospitalist dept will f/u on pending labs. We will follow along with you. <Christina Wright L - Last Filed: 05/21/17 15:09> - Date 05/21/17 Objective Vital signs: Temperature 97.7 F 05/21/17 08:00 Pulse Rate 53 L 05/21/17 08:00 Respiratory Rate 16 05/21/17 08:00 Blood Pressure 152/67 H 05/21/17 08:00 Pulse Oximetry 96 05/21/17 08:00 Height/Weight/BMI: Height 1.7 m Weight 85.6 kg Body Mass Index 29.5 Results - Labs CBC & Chem 7: 05/19/17 04:38 05/19/17 04:38 Assessment and Plan (1) Amputated below knee Current visit: No Status: Acute Hospital Course Summary Disclaimer: The visit summary below is not to be considered part of the above Progress Note.
[2017-05-21] MEDS: INSULIN ASPART 100unit/ml INJECTION SQ PRN (11:19)
[2017-05-21] MEDS ORDERED: WARFARIN 7.5 MG TABLET PO SCH (12:00)
--- NOTE | 2017-05-21 13:45 | IRU Team Meeting ---
IRU Team Meeting - Nursing Bladder Assistive Devices Utilized:: Bedside Commode, Absorbent Pad Bladder Management Level of Assist: Modified Independent Bladder Frequency of Accidents: No accidents Vital Signs: Vital Signs - 24 hr 05/20/17 16:00 05/20/17 19:48 05/21/17 08:00 Temperature 98.1 F 98.3 F 97.7 F Pulse Rate 53 L 55 L 53 L Respiratory Rate 20 16 16 Blood Pressure 134/61 164/63 H 152/67 H Pulse Oximetry 96 97 96 Current Medications: Acetaminophen (Tylenol) 500 mg PO Q4HR PRN PRN Reason: Pain Hydrocodone Bitart/Acetaminophen (Freedom 5/325) 1 - 2 tab PO Q4H PRN PRN Reason: Pain Atorvastatin Calcium (Lipitor) 80 mg PO HS [facility] Last Admin: 05/20/17 20:19 Dose: 80 mg Calcium/Vitamin D (Os Rio-D 500) 1 tab PO BID [facility] Last Admin: 05/21/17 08:37 Dose: 1 tab Citalopram Hydrobromide (Celexa) 20 mg PO DAILY [facility] Last Admin: 05/21/17 08:37 Dose: 20 mg Glimepiride (Amaryl) 4 mg PO WB [facility] Last Admin: 05/21/17 08:37 Dose: 4 mg Insulin Aspart (Novolog) 2 - 8 unit SQ SS PRN; Protocol PRN Reason: Hyperglycemia Last Admin: 05/21/17 11:19 Dose: 2 unit Insulin Glargine (Lantus) 15 unit SQ HS [facility] Last Admin: 05/20/17 20:21 Dose: 15 unit Irbesartan (Avapro) 150 mg PO DAILY [facility] Last Admin: 05/21/17 08:37 Dose: 150 mg Levothyroxine Sodium (Synthroid) 50 mcg PO ACB [facility] Last Admin: 05/21/17 06:04 Dose: 50 mcg Magnesium Hydroxide (Mom) 30 ml PO DAILY PRN PRN Reason: Constipation Metformin HCl (Glucophage) 500 mg PO TIDWM [facility] Last Admin: 05/21/17 12:22 Dose: 500 mg Metoprolol Succinate (Toprol Xl) 12.5 mg PO HS [facility] Last Admin: 05/20/17 20:14 Dose: Not Given Multivitamins (Theragran) 1 tab PO DAILY [facility] Last Admin: 12/08/17 08:37 Dose: 1 tab Senna/Docusate Sodium (Senna Plus Tablet) 1 tab PO BID PRN PRN Reason: Constipation Warfarin Sodium (Coumadin Protocol) 0 MC NOTE BELLA Current Medical Issues: Diabetes mellitus, atrial fib/INR Comments: I certify that I personally led the interdisciplinary team meeting and agree with comments, barriers and goals indicated. Team meeting was held in the patient's room with the patient and the following family members present: patient's , patient's two daughters Gurmeet is doing well. She does have elevated blood sugars and has received sliding insulin scale. In addition, her INR is a bit subtherapeutic. The stump appears to be doing well with regard to healing. She is tolerating ambulation well. She denies any new symptoms of chest pain or shortness of breath. - Physical Therapy Bed, Chair, Wheelchair Transfer Assist: Modified Independent Ambulation Ability: Stand By Assist/Supervision, Household Exception Ambulation Distance: 86 Wheelchair Propulsion Ability: Modified Independent Wheelchair Propulsion Distance: 300 Stair Climbing Ability: Stand By Assist/Supervision Number of Steps Climbed: 12 Car Transfer Ability: Contact Guard Assistance Comments: She is working well with physical therapy. She is able to ambulate 86 feet with standby assistance. She is working on getting up and down from the floor. She has met most of her goals. Additional training will occur this afternoon. - Occupational Therapy Eating Ability: Independent Grooming Ability: Independent Bathing Ability: Stand By Assist/Supervision Upper Body Dressing Ability: Independent Lower Body Dressing Ability: Modified Independent Tub Transfer Assist: Patient Refuses Toileting Assist: Independent Toilet Transfer Assist: Independent Comments: She uses both prosthetics and wheelchair for functional mobility. She does have some degree of fatigability and decide on whether to use the prosthesis versus a wheelchair based on confidence level as well. She does demonstrate good safety awareness. When offered education, at times she is somewhat resistant and states that she knows what to do. Nevertheless, she has met most of her goals. - Goals Physical Therapy Goals: 05/21/17 Goals: 1.) Amb 150 feet Mod I with standard walker Occupational Therapy Goals: OT goals 05/21/17: 1.) Pt. to demo good balance w/ ADL tasks when using B hands. 2.) D/c planning - Barriers to Discharge Barriers to Attaining Goals: Endurance - Care Plan Anticipated Length of Stay (days): 1 Anticipated DC Destination: Home, Self Care, Home Health Service I have led this team conference and agree with the plan.
--- NOTE | 2017-05-21 14:47 | Discharge Summary ---
Discharge Information Date of admission: 05/18/17 12:27 Anticipated date of discharge: 05/22/17 Attending Physician: Oni Treviño MD Primary care physician: Liza Wellington MD Consults: 05/18/17 13:27 Physician Consult [CONS] Routine Consulting Provider: Tomas Marrufo Reason For Exam: Medical management Ordering Provider has Notified Staff Radiation Therapist: No 05/18/17 14:04 Dietary Consult [CONS] Routine Comment: Reason For Exam: DM: Instruct in CC diet please - Discharge Diagnosis (1) Amputated below knee Status: Acute (2) DM (diabetes mellitus) type II controlled peripheral vascular disorder Status: Chronic (3) Atrial fibrillation Status: Chronic (4) Status post below knee amputation of right lower extremity Status: Acute 1. Right below-knee amputation 2. Status post bilateral [id number] amputations 3. Diabetes mellitus, type II, on long-term insulin therapy, not controlled 4. Atrial fibrillation, chronic - Laboratory Labs: 05/19/17 04:38 05/19/17 04:38 History of Present Illness HPI: 05/21/17 14:44 Ms. Vasquez is a 76-year-old white female with a remote history of left below- the-knee amputation. More recently she had been dealing with a nonhealing ulcer/ lower extremity wound for about 15 months. A variety of treatments had been undertaken including antibiotics, local wound treatment and hyperbaric oxygen. The wound was nonhealing. Therefore she was taken to surgery by Dr. Fontaine on 02/18/2017 for a right below the knee amputation. She tolerated this well and was at [facility] on skilled care for about a month. However she plateaued at that time. At this time the patient has had total healing of her recent right below-the- knee amputation. It is noted that postoperatively there was a minor office procedure to remove some stitches on the lateral aspect of the right distal stump. That wound has totally healed. She now has new bilateral prostheses and comes to inpatient rehabilitation for training and strengthening in this regard. In addition she has diabetes mellitus on long-term insulin and oral agents. She has a history of blisters following the previous amputation a number of years ago on the left side. Finally she does have atrial fibrillation and is on warfarin. For these reasons she was admitted for a multidisciplinary approach to inpatient rehabilitation. Hospital Course This is a general summary of the patient's hospital course. For more details refer to the complete medical record. She was admitted to inpatient rehabilitation at [facility] on 2016. She was followed by the hospitalist service with regard to her blood sugars. Pharmacy adjusted her warfarin with regard to the atrial fibrillation. The patient was seen by occupational therapy. She was independent with eating at the beginning of therapy and at the conclusion. Grooming was initially standby assist and ultimately modified independent. Bathing was performed at standby assistance level. Upper body dressing was independent at the beginning and at the conclusion of therapy. Lower body dressing was initially supervision and ultimately modified independent. Toileting assistance was initially standby assistance and ultimately modified independent. Toilet transfers assist was initially standby assist and ultimately modified independent. She was also seen by physical therapy. For bed/chair/wheelchair transfers she initially required moderate assistance. Ultimately she was able to perform this with standby assistance. Toileting was performed with standby assistance. Toilet transfer assist was also standby assistance. Car transfers were initially done with minimal assistance. Ambulation was initially maximum assistance and ultimately standby assistance. She was able to ambulate over 86 feet and possibly further on the day of dismissal. She was able to climb 6 steps with maximum assistance. Her blood sugars remained a bit elevated and she did receive sliding scale insulin. At the time of dismissal her blood sugars are running between 170 and 230. We recommended that she limit her intake to a 2000-calorie consistent carbohydrate diet. She states that she would prefer to keep her sugars a bit high and thus avoid hypoglycemia. We will defer further conversations in this regard to her personal physician. Finally, her INR was adjusted by pharmacy dosing of the warfarin. Her INR is 1.5. We have arranged for home health to see the patient for physical therapy, occupational therapy and long-term to monitor blood sugars and the INR. A repeat INR will be obtained on 05/24/[address] Liza Wellington. At the time of dismissal, the right stump is healing nicely with no evidence of inflammation nor breakdown. Hospital course: 05/18/17 IMPRESSION B/L BKA Atrial fibrillation, anticoagulated on Coumadin. Echo 03/18/15 showed EF 65-70%, biatrial enlargement and mild pulmonary HTN HTN DM2, insulin dependent (diagnosed in 1998). A1c was 6.5% on 03/04/17 PVD Obesity Hypothyroidism Hyperlipidemia Osteopenia Intermittent hypercalcemia PLAN Multiple medical conditions, all presently stable. Continue home meds. Monitor BGMs; DM under good control with Amaryl, Metformin and insulin. Beware of hypoglycemia with increased activity. Agree with checking baseline labs in the morning. Note - previous admission family raised some concerns about mild cognitive deficits - monitor for delirium; provide extra reassurance/redirection if needed. Thank you for this consult - hospitalist dept will f/u on pending labs. We will follow along with you. Time spent with patient: 25 - 35 minutes Discharge Plan - Med Rec/Dispo Referrals/Follow Up: Liza Wellington MD [Family Provider] - (Dr. Macie Wellington on 06/01/17 at 3:00 pm for Hosp. follow-up. . [facility] [place] [phone] ) Prescriptions: No Action Senna + Docusate [Senna Plus Tablet] 1 tab PO BID PRN PRN Reason: Constipation Glimepiride [Amaryl] 4 mg PO DAILY Irbesartan [Avapro] 150 mg PO DAILY Milk of Magnesia [Mom] 30 ml PO DAILY PRN PRN Reason: Constipation Metformin [Glucophage] 500 mg PO TIDWM Multivitamin [One Daily Multivitamin] 1 each PO DAILY Metoprolol Succinate 12.5 mg PO HS Hydrocodone/Acetaminophen [Hydrocodon-Acetaminophen 5-325] 1 - 2 tab PO Q5HR PRN PRN Reason: Pain Acetaminophen [Tylenol] 500 mg PO Q4HR PRN PRN Reason: Pain Atorvastatin [Lipitor] 2 tab PO DAILY Calcium 500 + D [Os Rio-D 500] 1 tab PO BID Insulin Glargine [Lantus] 15 unit SQ HS Levothyroxine Tab [Synthroid] 50 mcg PO ACB Citalopram [Celexa] 1 tab PO DAILY - Disposition 01 Discharged Home, Self-Care
--- NOTE | 2017-05-21 14:55 | Letter to Referring Physician ---
Dear Dr. Liza Wellington, This is a brief note to bring you up-to-date on the status of Dulce Maria Vasquez and her stay on the acute inpatient rehabilitation unit at [facility]. After her right [id number] amputation she was cared for at the skilled level at [facility]. At the present time, her wounds have healed and she was therefore admitted to inpatient rehabilitation unit at [facility] on May 18, 2017 for training with her bilateral knee prostheses as well as for strengthening and monitoring of her blood sugars etc. While on inpatient rehabilitation, this patient was seen by occupational therapy and physical therapy and improved overall in their functional ability. We also monitored and managed the patient's blood sugars and INR while on Acute Rehab. Please see a copy of the history and physical examination as well as discharge summary enclosed with this letter for further details. We do recommend that the patient obtain an INR in about 2 days after dismissal. We have arranged this at the time of the Acute Rehab stay via Home Health blood draw on May 24. Her INR here was 1.5 and she has received 7-7.5 mg daily. Thank you for allowing us to be involved in this nice patient's care. Please contact me directly should you have any questions regarding their stay on the inpatient rehabilitation unit. Sincerely, Oni Treviño M.D.
[2017-05-21] MEDS: INSULIN GLARGINE 100unit/ml INJECTION SQ SCH (21:45)
[2017-05-21] MEDS: ATORVASTATIN 40 MG TABLET PO SCH (21:46)
[2017-05-22] MEDS: LEVOTHYROXINE 50 MCG TABLET PO SCH (06:44)
--- NOTE | 2017-05-22 06:57 | Pharmacy Consult ---
Pharmacy Consult-Warfarin - Laboratory Information 05/18/17 05/19/17 05/20/17 14:14 04:38 05:17 INR 1.50 H 1.40 H 1.54 H 05/21/17 05/22/17 04:43 03:59 INR 1.52 H 1.58 H - Consult Information We will give 10mg of warfarin today at 1200. INR not moving much for the last 3 days on 7.5mg of warfarin. Thanks
[2017-05-22] MEDS: IRBESARTAN 150 MG TABLET PO SCH (09:14)
[2017-05-22] MEDS: METFORMIN 500 MG TABLET PO SCH ×3 (09:14→17:02)
[2017-05-22] MEDS: CITALOPRAM 20 MG TABLET PO SCH (09:15)
[2017-05-22] MEDS: MULTI-VITAMIN PLAIN TABLET PO SCH (09:15)
[2017-05-22] MEDS: CALCIUM 500 + VIT D 200 TABLET PO SCH (09:15)
[2017-05-22] MEDS: GLIMEPIRIDE 4 MG TABLET PO SCH (09:15)
[2017-05-22] MEDS ORDERED: WARFARIN 5 MG TABLET PO SCH (12:00)
[2017-05-22] MEDS: INSULIN ASPART 100unit/ml INJECTION SQ PRN (12:09)
[2017-05-22 15:56] VITALS: BP 146/63; PULSE 61; RESP 18; TEMP 97.7; O2SAT 98
== END 2017-05-22 17:05 | disposition home health service (06) | DRG 561 ==
PROVIDERS: ADMIT Internal Medicine; ATTEND Internal Medicine